=== PATIENT | male | born 1950 | race Caucasian/White ===

== ENCOUNTER 2021-09-14 13:52 | Outpatient (CLI) | payer MEDICARE, BC, SELFPAY ==
--- NOTE | 2021-09-14 14:00 | CRLHL7_ITS ---
For Patients: As a result of the Cures Act, medical imaging exams and procedure reports are released immediately into your electronic medical record. You may view this report before your referring provider. If you have questions, please contact your health care provider. INDICATION: Bilateral leg swelling. COMPARISON: None FINDINGS: Ultrasound of the venous drainage of both lower extremities shows no evidence of deep venous thrombosis. There is normal antegrade flow from the posterior tibial and popliteal veins superiorly through the common femoral vein in both legs. There is normal augmentation and compressibility of these veins. Mild edema pattern bilaterally IMPRESSION: No evidence of deep venous thrombosis on ultrasound examination of both lower extremities. Dictated by Leland Pozo MD @ 09/14/2021 2:58:50 PM (Electronically Signed)
== END 2021-09-14 13:53 | disposition home or self-care (01) ==
LOC: US 13:54
PROVIDERS: Visit Provider Internal Medicine Hematology & Oncology
DX: M79.89 Other specified soft tissue disorders (principal)
CPT/HCPCS: 93970

== ENCOUNTER 2021-09-18 11:58 | Outpatient (CLI) | payer MEDICARE, BC, SELFPAY ==
[2021-09-18 12:34] LABS: Creatinine* 0.6 mg/dL (0.5-1.5); Estimated Glomerular Filt Rate 103 ml/min
--- NOTE | 2021-09-18 13:00 | CRLHL7_ITS ---
For Patients: As a result of the Century Cures Act, medical imaging exams and procedure reports are released immediately into your electronic medical record. You may view this report before your referring provider. If you have questions, please contact your health care provider. Indication: primary malignant neoplasm of pancreas, abnormal LFTs Technique: Postcontrast CT abdomen and pelvis. 98 cc Isovue 370 intravenous contrast. Please note that all CT scans at this facility use dose modulation, iterative reconstruction, and/or weight-based dosing when appropriate to reduce radiation dose to as low as reasonably achievable. Comparison: CT 08/17/2021 Findings: Small bilateral effusions, left greater than right. Atelectasis in the left lung base. Severe fatty infiltration of the liver. Postoperative changes of Whipple procedure. Pneumobilia. Pancreatic stent. The stent traverses pancreatic distal body and tail extending into the bowel spleen normal in size. Adrenal glands normal. Normal kidneys. Intra-abdominal ascites. No abscess. No bowel obstruction or free air. Sigmoid diverticulosis. No diverticulitis. Incomplete distension of the hepatic flexure. Appendix appears normal. Intrapelvic ascites also noted. Degenerative disc disease and facet degeneration lower lumbar spine. Diffuse anasarca. Right hip replacement hardware. Degenerative joint disease left hip. Impression: Postoperative changes of Whipple procedure. Stable position of the pancreatic duct stent. Increased intra-abdominal and intrapelvic ascites compared to the prior examination. Severe hepatic steatosis without intrahepatic mass. Similar appearance of the hepatic flexure compared to the prior study. Left pleural effusion has also increased. Development of small right pleural effusion. Please note that all CT scans at this facility use dose modulation, iterative reconstruction, and/or weight-based dosing when appropriate to reduce radiation dose to as low as reasonably achievable. Dictated by Bud Pham MD @ 09/18/2021 1:44:53 PM (Electronically Signed)
== END 2021-09-18 11:59 | disposition home or self-care (01) ==
LOC: CT 11:59
PROVIDERS: Visit Provider Internal Medicine Hematology & Oncology
DX: C25.0 Malignant neoplasm of head of pancreas (principal); K76.0 Fatty (change of) liver, not elsewhere classified; J90 Pleural effusion, not elsewhere classified
CPT/HCPCS: 36415; 74177; 82565; Q9967

== ENCOUNTER 2021-09-24 11:49 | Outpatient (CLI) | payer MEDICARE, BC, SELFPAY ==
[2021-09-24 12:23] VITALS: BP 115/73; PULSE 107; RESP 18; O2SAT 97
[2021-09-24 13:13] VITALS: BP 110/86; PULSE 92; RESP 18; O2SAT 100
[2021-09-24 13:29] VITALS: BP 108/70; PULSE 91; RESP 18; O2SAT 100
[2021-09-24 13:41] VITALS: BP 122/66; PULSE 90; RESP 16; O2SAT 100
--- NOTE | 2021-09-24 13:53 | PM.GSPRC ---
Operative Note Date of procedure: 09/24/21 Type of Procedure: 1. Paracentesis with ultrasound guidance. Procedure Description: After an informed consent was obtained, patient?s abdomen in the right mid abdomen was prepped and draped in the usual sterile fashion. An ultrasound was brought onto the field and a fluid pocket was identified that was away from intraabdominal organs, specifically small bowel. 1% Lidocaine was used to anesthetize the skin, soft tissues and peritoneum over the proposed needle insertion site. This was done under US guidance. A skin incision was made with a scalpel just large enough to fit the needle. The needle with the angiocatheter was advanced into the abdomen under US guidance. Once in the abdomen, the needle was withdrawn and the catheter was left in place. The catheter was then connected to the drainage tubing. A total of 3030 mL of clear yellow fluid was drained and 180 mL were sent to pathology for evaluation and cytology. The fluid sub draining because the catheter was up against the small intestine. Despite repositioning the catheter, I was not able to obtain a more fluid. The patient did have some fluid still left in the abdomen. The catheter was then removed and the skin opening was closed with Exofin. Patient tolerated procedure well and there were no immediate complications. Anesthesia: local Surgeon: Keke Hyatt MD Estimated blood loss (mL): 0 Condition: stable Disposition: other (Discharged home.)
[2021-09-24 14:48] LABS: Lactate Dehydrogenase* 552 U/L (313-618)
[2021-09-24 14:49] LABS: Total Protein* 5.3 g/dL (6.0-8.3)
[2021-09-24 14:59] LABS: BF Clarity* Clear; BF Color Xanthochromic; BF Total Volume* 150; LDH Body Fluid* 157 U/L
[2021-09-24 15:00] LABS: Albumin Body Fluid* < 1.0 gm/dL; Amylase Body Fluid* < 30 U/L; Body Fluid Total Protein* < 2.0 gm/dL
[2021-09-24 15:15] LABS: Glucose Body Fluid* 92 mg/dL
[2021-09-24 15:55] LABS: RBC, Body Fluid* 0.001 10^6/uL
[2021-09-24 15:56] LABS: Mononuclear WBC Body Fluid* 71 %; Polynuclear WBC Body Fluid* 29 %; WBC, Body Fluid* 0.119 10^3/uL
== END 2021-09-24 14:14 | disposition home or self-care (01) ==
LOC: US 11:51 → OP CLINIC 11:53
PROVIDERS: Surgery; PCP Family Medicine; Visit Provider Surgery
DX: C25.0 Malignant neoplasm of head of pancreas (principal)
CPT/HCPCS: 36415; 49083; 76942; 82042; 82150; 82945; 83615; 84155; 84157; 87070; 87205; 88112; 88305; 88341; 88342; 89051; P9047

== ENCOUNTER 2022-04-13 14:20 | Outpatient (CLI) | payer MEDICARE, BC, SELFPAY ==
[2022-04-13 14:45] LABS: Basophils Absolute Auto 0.02 K/uL (0.00-0.30); Basophils Percent Auto 0.2 % (0.0-3.0); Eosinophils Absolute Auto 0.07 K/uL (0.00-0.50); Eosinophils Percent Auto 0.9 % (0.0-7.0); Hematocrit 34.2 % (37.0-53.0); Hemoglobin* 11.7 gm/dL (13.5-17.5); Immature Granulocytes Abs Auto 0.05 K/uL (0.00-0.30); Immature Granulocytes Pct Auto 0.6 %; Lymphocytes Percent Auto 13.9 % (20-44); Mean Corpuscular HGB Conc 34 gm/dL (32-36); Mean Corpuscular Hemoglobin 36 pg (26-34); Mean Corpuscular Volume 104 fL (80-100); Monocytes Percent Auto 9.3 % (0.0-11.0); Neutrophils Percent Auto 75.1 % (42.0-72.0); Platelet Count* 155 K/uL (140-440); Red Blood Count 3.28 m/uL (4.30-5.90); White Blood Count* 8.05 K/uL (4.50-11.00)
[2022-04-13 14:47] LABS: Slide Review Reflex No
[2022-04-13 15:07] LABS: Albumin* 3.4 g/dL (3.3-5.0); Chloride* 103 mmol/L (96-114)
[2022-04-13 15:08] LABS: Potassium* 3.5 mmol/L (3.6-5.1); Sodium* 135 mmol/L (135-149)
[2022-04-13 15:10] LABS: Alkaline Phosphatase* 539 U/L (40-150); Aspartate Amino Transferase* 175 U/L (12-35); Bilirubin Total* 7.3 mg/dL (0.1-1.5); Blood Urea Nitrogen* 16 mg/dL (7-30); Carbon Dioxide* 26 mmol/L (20-32); Creatinine* 0.8 mg/dL (0.5-1.5); Estimated Glomerular Filt Rate 94 ml/min; Total Protein* 7.4 g/dL (6.0-8.3)
[2022-04-13 15:11] LABS: Alanine Aminotransferase* 124 U/L (4-50); Calcium* 8.7 mg/dL (8.4-10.6); Glucose* 137 mg/dL (60-115)
[2022-04-15 19:51] LABS: Cancer Antigen-GI (CA 19-9) 581 U/mL (<=35)
== END 2022-04-13 14:21 | disposition home or self-care (01) ==
PROVIDERS: PCP Family Medicine; Visit Provider Internal Medicine Hematology & Oncology
DX: C25.0 Malignant neoplasm of head of pancreas (principal)
CPT/HCPCS: 36415; 80053; 85025; 86301

== ENCOUNTER 2022-04-15 10:36 | Emergency (ER) | payer MEDICARE, BC, SELFPAY ==
[2022-04-15] VITALS (25 sets, daily range): BP systolic 78–118; BP diastolic 48–70; PULSE 53–62; RESP 16; TEMP 36.1; O2SAT 88–100; BMI 25.4
--- NOTE | 2022-04-15 11:34 | CRLHL7_ITS ---
For Patients: As a result of the Century Cures Act, medical imaging exams and procedure reports are released immediately into your electronic medical record. You may view this report before your referring provider. If you have questions, please contact your health care provider. INDICATION: Jaundice, history of pancreatic cancer. TECHNIQUE: CT of the abdomen and pelvis with 90 cc Isovue 370 IV contrast. Coronal and sagittal reconstructions. COMPARISON: CT of the abdomen and pelvis 09/18/2021. FINDINGS: Diffuse hepatic steatosis. New 1.1 cm low-attenuation lesion in the lateral segment of the left hepatic lobe (series 2, image 33). The spleen and adrenal glands are negative. Portal veins are patent. Postoperative changes of Whipple procedure and cholecystectomy. Pancreatic duct stent in stable position. No dilation of the pancreatic duct. No obvious recurrent mass. Increased mild intra and extrahepatic bile duct dilation of uncertain etiology. Minimal pneumobilia. Symmetric enhancement of the kidneys. No hydronephrosis or ureteral dilation. No obstructing urinary calculi identified, however the distal ureters are obscured by streak artifact in the pelvis. The visualized bladder demonstrates mild wall thickening. Prostate gland does not appear significantly enlarged. No small bowel dilation. Resolution of previously seen colonic inflammation. Colonic diverticulosis without evidence of diverticulitis. Redundant sigmoid colon. New circumferential wall rectal thickening with presacral fat stranding suggesting proctitis. Negative appendix. Diffuse mesenteric edema throughout abdomen and pelvis. Resolution of previously seen ascites. No pneumatosis or free air. There are multiple mildly enlarged central mesenteric lymph nodes which have increased in size. For example, a lymph node to the right of midline measures 1.1 cm in short axis today compared to 0.7 cm previously (series 2, image 58). No retroperitoneal lymphadenopathy. Aortoiliac vascular calcifications. Retroaortic left renal vein. Degenerative changes of the spine. Left convex lumbar curve. Right total hip arthroplasty. Mild body wall edema. Resolution of previously seen pleural effusions. 3 mm noncalcified pulmonary nodule along the left major fissure (series 3, image 10). 2 mm noncalcified pulmonary nodule in the lateral left lower lobe (image 11). These were not included in the field of view on prior exam. Recommend attention on follow-up. Coronary artery calcifications. Bilateral gynecomastia. IMPRESSION: 1. Postoperative changes of Whipple procedure with pancreatic duct stent in stable position. No obvious recurrent mass. 2. Diffuse hepatic steatosis. New small indeterminate lesion in the left hepatic lobe. This could be further evaluated with nonemergent contrast enhanced MRI. 3. Increased mild intra and extrahepatic bile duct dilation of uncertain etiology. 4. Increased size of multiple mildly enlarged central mesenteric lymph nodes which are indeterminate. 5. New rectal wall thickening with presacral fat stranding suggesting proctitis. 6. Diffuse mesenteric edema and mild body wall edema. Please note that all CT scans at this facility use dose modulation, iterative reconstruction, and/or weight-based dosing when appropriate to reduce radiation dose to as low as reasonably achievable. Dictated by Adilia Sims MD @ 04/15/2022 3:31:13 PM (Electronically Signed)
--- NOTE | 2022-04-15 11:37 | ED.GENADULT ---
HPI - General Adult General Chief complaint: Unspecified Complaint, Adult Stated complaint: high billiruban and jaundice Time Seen by Provider: 04/15/22 11:11 History of Present Illness HPI narrative: This 72-year-old male has a history of pancreatic cancer that was diagnosed 14 months ago. He had a Whipple procedure and had his gallbladder removed. He has been doing well and had 2 scans with no findings of cancer. Lab results yesterday showed elevated bilirubin. He states that he has dark colored urine and does show some sign of jaundice. He does not have any pain or nausea or vomiting. He states that he is exercising and feels well. He is seeing an oncologist and GI specialist. He comes in for a CT scan and further evaluation of these findings. Related Data Allergies Allergy/AdvReac Type Severity Reaction Status Date / Time No Known Drug Allergies Allergy Verified 04/15/22 12:05 Review of Systems Status of ROS: Reports: 10 or more systems reviewed and unremarkable except as noted in History and below Narrative: Constitutional: No fevers, no weight gain or loss. Eyes: No discharge. No vision changes. HENT: No congestion, no sore throat, no ear pain. Cardiovascular: No chest pain, no palpitations. Respiratory: No shortness of breath, no wheezes, no cough. Gastrointestinal: No abdominal pain, no vomiting, no diarrhea. Genitourinary: No dysuria, no hematuria. Musculoskeletal: Normal range of motion. Skin: No rashes, no pruritis. Jaundice. Neurological: No dizziness, weakness, sensory change, speech change. Endo/Heme/Allergies: No bruising or bleeding. No polydipsia. Pysch: no suicidality, no anxiety, no insomnia. All other systems reviewed and are negative. PFSH PFSH Social History Smoking Status: Former smoker Do you use any of these nicotine containing products: None Second hand tobacco smoke exposure: No How often do you have a drink containing alcohol: never How often do you have six or more drinks on one occasion: Never AUDIT-C Alcohol total score: 0 Non-prescribed substance use: denies use service: No Exam Narrative: Exam Narrative: Constitutional: Well-developed, well-nourished, no acute distress. HEENT: Normocephalic, atraumatic. Neck: Normal range of motion. Nontender. Supple. Heart: Regular. No murmurs. Normal rate. Intact distal pulses. Lungs: Clear to auscultation. No chest discomfort. No wheezes, rhonchi, or rales. Abdomen: Normal bowel sounds. Nontender. No rebound tenderness. Genitalia: Deferred. Back: No midline tenderness. Normal range of motion. Extremities: Normal range of motion. No injury. Skin: Intact. No rash. Warm. No erythema or pallor. Neurologic: No altered sensation. No weakness. Alert and oriented. Psychiatric: No suicidality. No anxiety or depression. No insomnia. Nursing notes and vitals signs are reviewed. Const: Vital Signs, click to edit/add: Vital Signs - 24 hr 04/15/22 10:59 04/15/22 11:18 04/15/22 11:30 Temperature 96.9 F L Pulse Rate 58 L 58 L Respiratory Rate 16 Blood Pressure Blood Pressure [Ri ght Upper Arm] 78/48 L Pulse Oximetry 96 99 99 Oxygen Delivery Me thod Room Air 04/15/22 11:32 04/15/22 11:45 04/15/22 12:00 Temperature Pulse Rate 62 61 59 L Respiratory Rate Blood Pressure 107/70 Blood Pressure [Ri ght Upper Arm] Pulse Oximetry 99 98 99 Oxygen Delivery Me thod 04/15/22 12:02 04/15/22 12:15 04/15/22 12:30 Temperature Pulse Rate 58 L 56 L 62 Respiratory Rate Blood Pressure 106/63 Blood Pressure [Ri ght Upper Arm] Pulse Oximetry 98 97 100 Oxygen Delivery Me thod 04/15/22 12:32 04/15/22 12:54 04/15/22 13:00 Temperature Pulse Rate 60 54 L 55 L Respiratory Rate Blood Pressure 94/67 Blood Pressure [Ri ght Upper Arm] Pulse Oximetry 99 98 99 Oxygen Delivery Me thod 04/15/22 13:02 04/15/22 13:15 04/15/22 13:30 Temperature Pulse Rate 57 L 56 L 59 L Respiratory Rate Blood Pressure 116/66 Blood Pressure [Ri ght Upper Arm] Pulse Oximetry 99 100 100 Oxygen Delivery Me thod 04/15/22 13:32 04/15/22 13:45 04/15/22 14:07 Temperature Pulse Rate 56 L 56 L 57 L Respiratory Rate Blood Pressure 118/69 Blood Pressure [Ri ght Upper Arm] Pulse Oximetry 100 88 [facility] 04/[facility]22 14:15 04/15/22 14:30 04/15/22 14:32 Temperature Pulse Rate 54 L 53 L 60 Respiratory Rate Blood Pressure 101/62 Blood Pressure [Ri ght Upper Arm] Pulse Oximetry 98 98 97 Oxygen Delivery Me thod 04/15/22 14:45 04/15/22 15:00 04/15/22 15:02 Temperature Pulse Rate 54 L 55 L 56 L Respiratory Rate Blood Pressure 105/62 Blood Pressure [Ri ght Upper Arm] Pulse Oximetry 99 99 99 Oxygen Delivery Me thod 04/15/22 15:15 Temperature Pulse Rate 56 L Respiratory Rate Blood Pressure Blood Pressure [Ri ght Upper Arm] Pulse Oximetry 99 Oxygen Delivery Me thod Course Vital Signs Vital signs: Initial Vital Signs Temperature 96.9 F L 04/15/22 10:59 Temperature Source Temporal Artery Scan 04/15/22 10:59 Respiratory Rate 16 04/15/22 10:59 Blood Pressure 78/48 L 04/15/22 10:59 Blood Pressure Mean 58 04/15/22 10:59 Blood Pressure Position Sitting 04/15/22 10:59 Pulse Oximetry 96 04/15/22 10:59 Oxygen Delivery Method 04/15/22 10:59 Vital Signs Temperature 96.9 F L 04/15/22 10:59 Respiratory Rate 16 04/15/22 10:59 Blood Pressure 78/48 L 04/15/22 10:59 Pulse Oximetry 96 04/15/22 10:59 Oxygen Delivery Method 04/15/22 10:59 Temperature 96.9 F L 04/15/22 10:59 Pulse Rate 56 L 04/15/22 15:15 Respiratory Rate 16 04/15/22 10:59 Blood Pressure 105/62 04/15/22 15:02 Pulse Oximetry 99 04/15/22 15:15 Oxygen Delivery Method 04/15/22 10:59 Medical Decision Making MDM Narrative Medical decision making narrative: Initial blood pressure for this patient showed 78/48. At the time of my visit his blood pressure was 120/80. He states that his blood pressure runs low at times and denies having any symptoms of lightheadedness. He is not tripping sirs criteria for workup for sepsis. The patient did receive 500 mL of normal saline intravenously. Lab results returned with some elevated bilirubin but it is distinctly improved when compared to the results from 2 days ago. Similarly his liver enzymes have improved. It is notable however that his hemoglobin went from 11.72 days ago to 9.9 today. He does not report any blood loss. The patient states that he feels rather normal and reports that he has been exercising to rebuild strength after and 80 lb weight loss because of the Whipple procedure and prolonged hospitalization that occurred about a year ago. He is in contact with his oncologist and results will be forwarded from today's visit. At the time of discharge the patient appears safe for outpatient management. The treatment plan is reviewed along with written and verbal return precautions. Reasons to return and the importance of close followup were also reviewed. He will connect with his oncologist for further plans. Lab Data Labs: Lab Results 04/15/22 04/15/22 04/15/22 Range/Units 11:58 11:58 11:58 WBC 5.13 (4.50-11.00) K/uL RBC 2.75 L (4.30-5.90) m/uL Hgb 9.9 L (13.5-17.5) gm/dL Hct 28.4 L (37.0-53.0) % MCV 103 H (80-100) fL MCH 36 H (26-34) pg MCHC 35 (32-36) gm/dL RDW Coeff of Fidelina 15.5 (11.5-15.5) % Plt Count 142 (140-440) K/uL Neut % (Auto) 67.4 (42.0-72.0) % Lymph % (Auto) 20.7 (20-44) % Ward % (Auto) 9.9 (0.0-11.0) % Eos % (Auto) 1.6 (0.0-7.0) % Baso % (Auto) 0.2 (0.0-3.0) % Neut # (Auto) 3.46 (1.7-7.0) K/uL Lymph # (Auto) 1.06 (0.90-2.90) K/uL Ward # (Auto) 0.50 (0.00-0.90) K/UL Eos # (Auto) 0.08 (0.00-0.50) K/uL Baso # (Auto) 0.01 (0.00-0.30) K/uL INR 1.15 H (0.91-1.10) Sodium 132 L (135-149) mmol/L Potassium 3.2 L (3.6-5.1) mmol/L Chloride 105 (96-114) mmol/L Carbon Dioxide 23 (20-32) mmol/L BUN 15 (7-30) mg/dL Creatinine 0.7 (0.5-1.5) mg/dL Estimated Creat Clear 71.12 Estimated GFR 98 ml/min Glucose 170 H (60-115) mg/dL Calcium 7.8 L (8.4-10.6) mg/dL Total Bilirubin 3.9 H (0.1-1.5) mg/dL Direct Bilirubin 2.3 H (0.0-0.5) mg/dL AST 102 H (12-35) U/L ALT 81 H (4-50) U/L Alkaline Phosphatase 396 H (40-150) U/L Total Protein 6.4 (6.0-8.3) g/dL Albumin 2.8 L (3.3-5.0) g/dL Lipase 23 (23-300) U/L Urine Color (Yellow) Urine Appearance (Clear) Urine pH (5.0-8.5) Ur Specific [place] (1.000-1.030) Urine Protein (Negative) Urine Glucose (UA) (Negative) Urine Ketones (Negative) Urine Blood (Negative) Urine Nitrite (Negative) Urine Bilirubin (Negative) Urine Urobilinogen (0.2-1.0) Ur Leukocyte Esterase (Negative) Urine RBC (0-2) Urine WBC (0-5) Ur Squamous Epith Cells (None-Few) Urine Bacteria (None) 04/15/22 Range/Units 13:02 WBC (4.50-11.00) K/uL RBC (4.30-5.90) m/uL Hgb (13.5-17.5) gm/dL Hct (37.0-53.0) % MCV (80-100) fL MCH (26-34) pg MCHC (32-36) gm/dL RDW Coeff of Fidelina (11.5-15.5) % Plt Count (140-440) K/uL Neut % (Auto) (42.0-72.0) % Lymph % (Auto) (20-44) % Ward % (Auto) (0.0-11.0) % Eos % (Auto) (0.0-7.0) % Baso % (Auto) (0.0-3.0) % Neut # (Auto) (1.7-7.0) K/uL Lymph # (Auto) (0.90-2.90) K/uL Ward # (Auto) (0.00-0.90) K/UL Eos # (Auto) (0.00-0.50) K/uL Baso # (Auto) (0.00-0.30) K/uL INR (0.91-1.10) Sodium (135-149) mmol/L Potassium (3.6-5.1) mmol/L Chloride (96-114) mmol/L Carbon Dioxide (20-32) mmol/L BUN (7-30) mg/dL Creatinine (0.5-1.5) mg/dL Estimated Creat Clear Estimated GFR ml/min Glucose (60-115) mg/dL Calcium (8.4-10.6) mg/dL Total Bilirubin (0.1-1.5) mg/dL Direct Bilirubin (0.0-0.5) mg/dL AST (12-35) U/L ALT (4-50) U/L Alkaline Phosphatase (40-150) U/L Total Protein (6.0-8.3) g/dL Albumin (3.3-5.0) g/dL Lipase (23-300) U/L Urine Color [place] A (Yellow) Urine Appearance Clear (Clear) Urine pH 6.0 (5.0-8.5) Ur Specific [place] 1.020 (1.000-1.030) Urine Protein Negative (Negative) Urine Glucose (UA) Negative (Negative) Urine Ketones Negative (Negative) Urine Blood Negative (Negative) Urine Nitrite Negative (Negative) Urine Bilirubin 2+ A (Negative) Urine Urobilinogen 1.0 (0.2-1.0) Ur Leukocyte Esterase Negative (Negative) Urine RBC 0-2 (0-2) Urine WBC 0-2 (0-5) Ur Squamous Epith Cells None (None-Few) Urine Bacteria None (None) Imaging Data CT scan - abdomen: Radiologist's impression: 1. Postoperative changes of Whipple procedure with pancreatic duct stent in stable position. No obvious recurrent mass. 2. Diffuse hepatic steatosis. New small indeterminate lesion in the left hepatic lobe. This could be further evaluated with nonemergent contrast enhanced MRI. 3. Increased mild intra and extrahepatic bile duct dilation of uncertain etiology. 4. Increased size of multiple mildly enlarged central mesenteric lymph nodes which are indeterminate. 5. New rectal wall thickening with presacral fat stranding suggesting proctitis. 6. Diffuse mesenteric edema and mild body wall edema. Discharge Plan Discharge Clinical Impression: Hyperbilirubinemia, History of pancreatic cancer Patient Disposition: Home, Self-Care Condition: Stable Additional Instructions: Follow-up with oncology and GI Clinic. Return if worsening symptoms happen. Follow Up/Referrals: Chinedu Hudson MD [Primary Care Provider] - Stand Alone Forms: [employer] Info Instructions
[2022-04-15] MEDS: 0.9 % SODIUM CHLORIDE 500 ML 500 ML IV (11:59)
[2022-04-15 12:08] LABS: Basophils Absolute Auto 0.01 K/uL (0.00-0.30); Basophils Percent Auto 0.2 % (0.0-3.0); Eosinophils Absolute Auto 0.08 K/uL (0.00-0.50); Eosinophils Percent Auto 1.6 % (0.0-7.0); Hematocrit 28.4 % (37.0-53.0); Hemoglobin* 9.9 gm/dL (13.5-17.5); Immature Granulocytes Abs Auto 0.01 K/uL (0.00-0.30); Immature Granulocytes Pct Auto 0.2 %; Lymphocytes Absolute Auto 1.06 K/uL (0.90-2.90); Lymphocytes Percent Auto 20.7 % (20-44); Mean Corpuscular HGB Conc 35 gm/dL (32-36); Mean Corpuscular Hemoglobin 36 pg (26-34); Mean Corpuscular Volume 103 fL (80-100); Monocytes Percent Auto 9.9 % (0.0-11.0); Neutrophils Absolute Auto 3.46 K/uL (1.7-7.0); Neutrophils Percent Auto 67.4 % (42.0-72.0); Platelet Count* 142 K/uL (140-440); RDW Coefficient of Variation % 15.5 % (11.5-15.5); Red Blood Count 2.75 m/uL (4.30-5.90); White Blood Count* 5.13 K/uL (4.50-11.00)
[2022-04-15 12:19] LABS: Slide Review Reflex No
[2022-04-15 12:28] LABS: Albumin* 2.8 g/dL (3.3-5.0)
[2022-04-15 12:29] LABS: Chloride* 105 mmol/L (96-114); Potassium* 3.2 mmol/L (3.6-5.1); Sodium* 132 mmol/L (135-149)
[2022-04-15 12:30] LABS: INR 1.15 (0.91-1.10); Prothrombin Time 15.4 Seconds
[2022-04-15 12:31] LABS: Alkaline Phosphatase* 396 U/L (40-150); Aspartate Amino Transferase* 102 U/L (12-35); Bilirubin Direct* 2.3 mg/dL (0.0-0.5); Bilirubin Total* 3.9 mg/dL (0.1-1.5); Carbon Dioxide* 23 mmol/L (20-32); Creatinine* 0.7 mg/dL (0.5-1.5); Est. Creatinine Clearance* 71.12; Estimated Glomerular Filt Rate 98 ml/min; Total Protein* 6.4 g/dL (6.0-8.3)
[2022-04-15 12:32] LABS: Alanine Aminotransferase* 81 U/L (4-50); Blood Urea Nitrogen* 15 mg/dL (7-30); Calcium* 7.8 mg/dL (8.4-10.6); Glucose* 170 mg/dL (60-115); Lipase* 23 U/L (23-300)
[2022-04-15 14:30] LABS: Appearance Urine Clear (Clear); Bilirubin Urine 2+ (Negative); Blood Urine Negative (Negative); Color Urine Orange (Yellow); Glucose Urine Negative (Negative); Ketones Urine Negative (Negative); Leukocyte Esterase Urine Negative (Negative); Nitrite Urine Negative (Negative); Protein Urine Negative (Negative)
[2022-04-15 14:40] LABS: RBC Urine 0-2 (0-2); WBC Urine 0-2 (0-5)
[2022-04-15] MEDS: HEPARIN 500 UNIT/5 ML SYRINGE IVF (15:55)
== END 2022-04-15 16:00 | disposition home or self-care (01) ==
PROVIDERS: Emergency Provider Emergency Medicine Emergency Medical Services; PCP Family Medicine
DX: E80.6 Other disorders of bilirubin metabolism (principal); C25.9 Malignant neoplasm of pancreas, unspecified
CPT/HCPCS: 36415; 74177; 80048; 80076; 81001; 83690; 85025; 85610; 96360; 99284; J1642; J7120; Q9967

== ENCOUNTER 2022-05-27 11:00 | Outpatient (RCR) | payer MEDICARE, BC, SELFPAY ==
--- NOTE | 2021-12-11 16:16 | OT.OPOE ---
OT Outpatient Ortho Eval OT Outpatient Ortho Eval Start: 12/10/21 18:41 Freq: Status: Active Protocol: Document 12/11/21 15:09 AMB (Rec: 12/11/21 16:10 AMB [id number]) E-signed By Tena Butt, OTR/L, CLT, JAVA FLEX DEVELOPER OT OP Ortho Eval Details Type Type Eval Complexity Medium Insurance Information Insurance Information Medicaid Outpatient History/Precautions Current Condition/Medical Diagnosis Referring Provider Dr Pennington Treatment Diagnosis CTS BUE Date of Onset 11/20/21 Medical Conditions CA,Metal Implants,Arthritis Other Conditions Hypothyroidism, Pancreatic Cancer with recent chemo treatments. Pt was diagnosed with pancreatic surgery in March and has undergone the whipple procedure as well as 9 of 12 chemo treatments which was prematurely stopped due to severe reactions and intollerance. 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 Currently pt is not able to walk long distances secondary to severe debilitation related to cancer surgery / treatment. Pt attends OT via w/c, states he can walk in his home using a walker but not out in public. Discussed PT for improving mobility and general strength, pt states he did have [facility] PT which was helpful but states they took him as far as they could, would consider OP PT but feels he has a lot on his plate right now. Medical/Functional History Medical History Reviewed Yes Social History Employment Status Retired Oriented Mental Status No Concerns Ortho Subjective Subjective Subjective Pt states he has been having constant numbness in both of his hands, all fingers and thumb for approximately a month. Pt states he just woke up one day and both of his hands were numb and painful, nothing seems to change his sxs. Pt states his hands are often cold as well. Pt describes his pain as very annoying, they are just numb, hard to tell if I am holding something and how hard I am holding on to it. Pt rates his discomfort as a 3/10. Pt states they saw the professor of english yesterday and he did not feel pt has CTS, due to the fact that whole hand is numb including 5th digit. Pt has not tried splints or compression, warm feels good but doesn't really change sxs. Pt has to wear compression stockings and cannot put them on secondary to hand weakness and impaired sensation. Pain Assessment Pain Present Pain Present Pain Reported Location Right Hand Description Burning Intensity Numb Left Hand Description Burning,Other Intensity Numb Goniometric Comments Goniometric Comments Goniometric Comments Pt demonstrates AROM WFL throughout BUE. Generalized weakness throughout shoulders, elbows, forearms, wrists, and hands - 4-/5. Hand Pinch/Asbestos Textile Supervisor Strength Hand Right Asbestos Textile Supervisor Strength Position 1 (lbs) 40 Lateral Pinch Strength (lbs) 10 Three Point Pinch (lbs) 10 Left Asbestos Textile Supervisor Strength Position 1 (lbs) 35 Lateral Pinch Strength (lbs) 10 Three Point Pinch (lbs) 10 OT Objective Data Hand Hand Dominance Right Hand Function Full AROM but generalized weakness and impaired sensation. Sensation Sensation Assessment Summary Comments Will complete sensory testing at next visit. Upper Extremity Special Tests Wrist Durkan's Test Negative Left,Negative Right Median Nerve-Carpal Tunnel Wrist Phalen Test Negative Left,Negative Right OT Problems Problems Problems Decreased Strength Problems Comments Impaired sensation throughout hand Other Problems Writing,Opening Containers, Dressing Patient Potential Fair Assessment Assessment Assessment Pt presents to OT with complaints of numbness throughout BUE hands, all digits. Pt does not have classic s/s of CTS as he is experience paresthesia throughout BUE hands, all digits. Phalen's, Durkan's and Tinnel's are all (-). Question if pt is experiencing chemo related neuropathy? Pt is willing to try a few sessions of conservative treatment but is considering contacting MD to see if he can have an EMG to find out for sure what is going on in his hands. Pt has has significant weakness / debility in general (full body) due to cancer related treatment and surgery. Pt will benefit from continued OT services to address BUE paresthesia due to CTS or neuropathy. Treatment may be more limited if neuropathy is determined to be the cause. OT Outpatient Treatment Plan Ortho Barriers Barriers to Goal Attainment Multiple comorbidities and significant global debilitation. Occupational Therapy Treatment Plan - OP Potential Rehabilitation Potential Fair Goals Goals 1. Pt will be independent and compliant with HEP and recommendations for CTS in order to maximize postive outcomes. 3 weeks 2. Pt will verbalize the ability to sleep without waking secondary to nerve discomfort in his hands for at least 5 consecutive days indicating nerve healing. 4 weeks. 3. Pt will verbalize decreased paresthesia during the day in order to improve proprioception and ability to grasp and hold utensils, food, etc. 6 weeks 4. Pt will demonstrate improved BUE digital project coordinator strength by at least 5# ea to improve ability to lift and carry items as well as to open containers and jaelyn his compression stockings. 8 weeks . Progress set Treatment Plan Treatment Plan Evaluation,Manual Therapy, Splinting,Ultrasound, Therapeutic Exercise, Therapeutic Activities,Self- Care/Home Management,Caregiver Training,Education Expected Frequency 1-2x Week Expected Frequency Comments Visits may be limited due to multiple other medical conditions / appointments Expected Duration 8-10 Weeks Certification Certification I Certify That: Therapy Services Provided, Therapy Plan Established, Therapy Plan Reviewed Recertification Information Recertification Information Initial Certification Date 12/11/21 Recertification Due Date 03/13/22 Reasons to Continue Skilled Therapy Pt initiating therapy today to address BUE paresthesia. Rehabilitation Potential Fair Continued Plan of Care and Interventions See above Provider Signature Shows Agreement With POC & Medical Necessity Physician Comment/Change Comment or Changes Physician NPI Number #
== END 2022-08-20 15:20 | disposition home or self-care (01) ==
PROVIDERS: PCP Family Medicine; Visit Provider Family Medicine
DX: G56.00 Carpal tunnel syndrome, unspecified upper limb (principal); Z51.89 Encounter for other specified aftercare
CPT/HCPCS: 80053; 85025; 97035; 97110; 97116; 97140; 97162; 97166; 97530; 97535; X5282

== ENCOUNTER 2023-05-02 15:39 | Inpatient (IN) | payer MEDICARE, BC, SELFPAY ==
[2023-05-02] VITALS (35 sets, daily range): BP systolic 69–121; BP diastolic 39–78; PULSE 63–109; RESP 16–18; TEMP 36.6–37.8; O2SAT 92–99; BMI 26.8; BMI 27.5
--- NOTE | 2023-05-02 15:58 | ED_ITS ---
HPI - General Adult General Time Seen by Provider: 15:58 Date Seen: 05/02/23 Chief complaint: Dizziness/Vertigo Stated complaint: Pancreatic cancer-dizzy Time Seen by Provider: 05/02/23 15:57 Source: patient and RN notes reviewed Mode of arrival: wheelchair Limitations: no limitations History of Present Illness HPI narrative: This 73-year-old male is coming in accompanied by his for evaluation of fever. He has underlying recurrent pancreatic cancer that was just diagnosed recently. He had pancreatic cancer initial diagnosis about 2 years ago and had a Whipple, had a cholecystectomy at the time. He had painless jaundice recently, was found to have recurrent pancreatic cancer. He has started Abraxane and gemcitabine, started last week, is due to have next dose tomorrow. He woke up from his nap today with a temperature 102.8? F, 1 hour later is 101.6? F, he took no meds. He is afebrile here. He has been more tired today. Yesterday he took Tylenol because he felt achy in his back in in his legs. He has not really noting any increased cough, no increased abdominal symptoms or urinary symptoms. No sore throat. He did take MiraLax yesterday, that was the last to they had, his picked up more today but she has not given it yet today. He was complaining of being severely constipated, had very painful hard stool today and did have blood with that. The blood was in the context of a very painful constipated stool. He has not noted ongoing bleeding. He is followed by [place] [facility] in [place]. He had a drainage tube put in to ?help empty his liver?. Related Data Home Medications Medication Instructions Recorded Confirmed aspirin 81 mg capsule 81 mg PO DAILY 05/02/23 05/02/23 ciprofloxacin HCl 500 mg tablet 500 mg PO BID 05/02/23 colchicine 0.6 mg capsule 0.6 mg PO DAILY PRN 05/02/23 05/02/23 gabapentin 100 mg capsule mg PO 05/02/23 lidocaine 5 % topical patch 1 patch topical Q24H 05/02/23 05/02/23 giazrx-wmqptcco-hmthwqg 3 cap PO 05/02/23 36,000-114,000-180,000 unit capsule,delay rel (Creon) magnesium oxide 400 mg (241.3 mg 400 mg PO BID 05/02/23 05/02/23 magnesium) tablet melatonin 3 mg capsule 3 mg PO DAILY 05/02/23 05/02/23 metoclopramide HCl 10 mg tablet 10 mg PO Q6H 05/02/23 05/02/23 (Reglan) midodrine 10 mg tablet 10 mg PO 5XD 05/02/23 05/02/23 pantoprazole 40 mg tablet,delayed 40 mg PO DAILY 05/02/23 05/02/23 release polyethylene glycol 3350 17 17 g PO DAILY 05/02/23 05/02/23 gram/dose oral powder prochlorperazine maleate 10 mg 10 mg PO Q6H PRN nausea 05/02/23 05/02/23 tablet sennosides 8.6 mg tablet 8.6 mg PO DAILY 05/02/23 05/02/23 sildenafil 100 mg tablet 100 mg PO DAILY PRN intercourse 05/02/23 05/02/23 trazodone 50 mg tablet 50 mg PO DAILY 05/02/23 05/02/23 Allergies Allergy/AdvReac Type Severity Reaction Status Date / Time No Known Drug Allergies Allergy Verified 05/02/23 15:45 Review of Systems Status of ROS: Reports: 6 or more systems reviewed and unremarkable except as noted in History and below [facility] Medical History (Updated 05/02/23 @ 23:37 by Roshni Bolton MD) Gout ?M10.9 - Gout, unspecified (ICD-10) Orthostatic hypotension ?I95.1 - Orthostatic hypotension (ICD-10) Pancreatic cancer ?C25.9 - Malignant neoplasm of pancreas, unspecified (ICD-10) Surgical History (Updated 05/02/23 @ 22:27 by Roshni Bolton MD) H/O Whipple procedure ?Z90.410 - Acquired total absence of pancreas (ICD-10) ?Z90.49 - Acquired absence of other specified parts of digestive tract (ICD- 10) S/P hip replacement ?Z96.649 - Presence of unspecified artificial hip joint (ICD-10) Social History (Updated 05/02/23 @ 23:34 by Roshni Bolton MD) Narrative: Retired from [employer] in [place]. Lives with Maritza (medical decision maker if needed), 2 adult children in [place]. No current smoking, no alcohol use. Active daily. Requests full code status. What is your current living situation?: I presently have a place to live Problems where you live: no known problems Problems where you live details: NA In the past 12 months, utilities in danger of being shut off: no In past 12 months, lack of transportation kept you from medical appts, meetings, work, or getting things needed for daily living: no In the past 12 mos, have been you worried that your food would run out before you had money to buy more?: never true In the past 12 mos, the food you bought just didn't last and you didn't have money to buy more?: never true Highest level of school completed/degree received: Associate degree: academic program Smoking Status: Never smoker Do you use any of these nicotine containing products: None Second hand tobacco smoke exposure: No How often do you have a drink containing alcohol: never How often do you have six or more drinks on one occasion: Never AUDIT-C Alcohol total score: 0 Non-prescribed substance use: denies use Caffeine: Yes (Rare) How often does anyone, including family, friends and others, physically hurt you : never How often does anyone, including family, friends and others, insult or talk down to you: never How often does anyone, including family, friends and others, threaten you with harm: never How often does anyone, including family, friends and others, scream or curse at you: never service: No Exam Const: Vital Signs, click to edit/add: Vital Signs - 24 hr 05/02/23 15:41 05/02/23 16:14 05/02/23 17:21 Temperature 98.1 F Pulse Rate 83 Pulse Rate [Pulse Oximeter] 109 H Respiratory Rate 16 Blood Pressure 90/54 L Blood Pressure [Ri ght Upper Arm] 111/75 Pulse Oximetry 95 96 94 Oxygen Delivery Me thod Room Air 05/02/23 17:22 05/02/23 17:30 05/02/23 17:31 Temperature Pulse Rate 79 77 80 Pulse Rate [Pulse Oximeter] Respiratory Rate Blood Pressure 69/39 L Blood Pressure [Ri ght Upper Arm] Pulse Oximetry 95 93 95 Oxygen Delivery Me thod 05/02/23 17:45 05/02/23 17:47 05/02/23 18:00 Temperature Pulse Rate 79 81 77 Pulse Rate [Pulse Oximeter] Respiratory Rate Blood Pressure 99/59 L Blood Pressure [Ri ght Upper Arm] Pulse Oximetry 92 96 96 Oxygen Delivery Me thod 05/02/23 18:01 05/02/23 18:15 05/02/23 18:30 Temperature Pulse Rate 79 76 80 Pulse Rate [Pulse Oximeter] Respiratory Rate Blood Pressure 103/58 L Blood Pressure [Ri ght Upper Arm] Pulse Oximetry 95 96 96 Oxygen Delivery Me thod 05/02/23 18:32 05/02/23 18:45 05/02/23 19:00 Temperature Pulse Rate 76 77 75 Pulse Rate [Pulse Oximeter] Respiratory Rate Blood Pressure 96/57 L Blood Pressure [Ri ght Upper Arm] Pulse Oximetry 95 96 95 Oxygen Delivery Me thod 05/02/23 19:01 05/02/23 19:03 05/02/23 19:15 Temperature 100.1 F H Pulse Rate 78 74 Pulse Rate [Pulse Oximeter] Respiratory Rate Blood Pressure 83/53 L Blood Pressure [Ri ght Upper Arm] Pulse Oximetry 96 96 Oxygen Delivery Me thod 05/02/23 19:30 05/02/23 19:31 05/02/23 19:32 Temperature Pulse Rate 76 79 79 Pulse Rate [Pulse Oximeter] Respiratory Rate Blood Pressure 108/61 104/52 L Blood Pressure [Ri ght Upper Arm] Pulse Oximetry 96 96 94 Oxygen Delivery Me thod 05/02/23 19:45 05/02/23 20:00 05/02/23 20:02 Temperature Pulse Rate 77 76 76 Pulse Rate [Pulse Oximeter] Respiratory Rate Blood Pressure 92/54 L Blood Pressure [Ri ght Upper Arm] Pulse Oximetry 96 96 95 Oxygen Delivery Me thod 05/02/23 20:15 05/02/23 20:30 05/02/23 20:32 Temperature Pulse Rate 69 71 72 Pulse Rate [Pulse Oximeter] Respiratory Rate Blood Pressure 85/56 L Blood Pressure [Ri ght Upper Arm] Pulse Oximetry 95 96 96 Oxygen Delivery Me thod 05/02/23 20:45 05/02/23 21:00 05/02/23 21:02 Temperature Pulse Rate 65 65 63 Pulse Rate [Pulse Oximeter] Respiratory Rate Blood Pressure 101/65 Blood Pressure [Ri ght Upper Arm] Pulse Oximetry 96 96 98 Oxygen Delivery Me thod 05/02/23 21:15 05/02/23 21:30 05/02/23 21:31 Temperature Pulse Rate 69 64 64 Pulse Rate [Pulse Oximeter] Respiratory Rate Blood Pressure 98/62 Blood Pressure [Ri ght Upper Arm] Pulse Oximetry 99 95 95 Oxygen Delivery Me thod 05/02/23 21:45 Temperature Pulse Rate 67 Pulse Rate [Pulse Oximeter] Respiratory Rate Blood Pressure Blood Pressure [Ri ght Upper Arm] Pulse Oximetry 96 Oxygen Delivery Me thod Course Reevaluation(s) Time of Reevaluation #1: 17:48 Reevaluation #1: Reviewed with patient that his absolute neutrophil count is low at 800, the triple viral swab is negative. His chest x-ray shows some mild central bronchial thickening but no pneumonia. He is not coughing. He notes he had a biopsy of his spine last week sometime. He has been getting some low back pain, does radiate down his left leg this preceded the fever. The back pain is not worse. He was on Cipro after he had the stent placed for his jaundice, it is no longer on it. He has no new aches or pains, nothing really to direct me as far as fever. He notes his systolic blood pressure is usually low. He is currently running 99 systolic when I am in with him. He is almost completed 1 L of fluid, states he is feeling okay. We are paging [place] [facility] on-call. Time of Reevaluation #2: 18:32 Reevaluation #2: Nursing staff reported that patient is temperatures up to 100.1. She is collected the urinalysis, she has subsequently started his Zosyn. I will order Tylenol, be into explain to him my conversation with Oncology. I will also be ordering chest abdomen pelvis with IV contrast given his recurrent fever. Time of Reevaluation #3: 21:32 Reevaluation #3: Have updated patient that his CT is not read yet. The hospitalist has accepted him. We will work to try to get him to a floor hospital bed as soon as possible. Consultations Consultation #1: This patient is reviewed with the oncologist Halle Lane MD from [facility]. Given his age, underlying diagnosis, stent in place, neutropenia, she would favor hospitalization with broad-spectrum coverage for 48 hours while we await cultures. She would have a low threshold if he spikes another fever to do a chest abdomen pelvis CT. She does not feel it is necessary at this time, he took nothing to break his fever but if he does spike another fever, she would recommend this be done. Time: 18:12 Consultation #2: Have reviewed with our hospitalist Dr. Bolton, see will accept care, knows that his CT is unread and there is delay with radiology currently. Time: 21:14 Vital Signs Vital signs: Initial Vital Signs Temperature 98.1 F 05/02/23 15:41 Temperature Source Temporal Artery Scan 05/02/23 15:41 Pulse Rate 109 H 05/02/23 15:41 Respiratory Rate 16 05/02/23 15:41 Blood Pressure 111/75 05/02/23 15:41 Blood Pressure Mean 87 05/02/23 15:41 Blood Pressure Position Sitting 05/02/23 15:41 Pulse Oximetry 95 05/02/23 15:41 Oxygen Delivery Method Room Air 05/02/23 15:41 Vital Signs Temperature 98.1 F 05/02/23 15:41 Pulse Rate 109 H 05/02/23 15:41 Respiratory Rate 16 05/02/23 15:41 Blood Pressure 111/75 05/02/23 15:41 Pulse Oximetry 95 05/02/23 15:41 Oxygen Delivery Method Room Air 05/02/23 15:41 Temperature 98.1 F 05/03/23 03:00 Pulse Rate 63 05/03/23 03:00 Respiratory Rate 18 05/03/23 03:00 Blood Pressure 115/64 05/03/23 03:00 Pulse Oximetry 94 05/03/23 03:00 Oxygen Delivery Method Room Air 05/03/23 03:00 Medications Administered Medications: Generic Name Dose Route Start Last Admin Trade Name Freq PRN Reason Stop Dose Admin Piperacillin Sod/Tazobactam 100 mls @ 200 mls/hr 05/03/23 01:30 05/03/23 02:10 Sod 3.375 gm/ Sodium Chloride IVPB Infused Q6H MIKE Infusion Sodium Chloride 5 ml 05/02/23 23:20 05/03/23 01:24 Sodium Chloride 0.9 % (Flush) 10 Ml Syringe IVF 5 ml .FLUSH PRN Administration Discontinued Medications Generic Name Dose Route Start Last Admin Trade Name Freq PRN Reason Stop Dose Admin Acetaminophen 650 mg 05/02/23 18:36 05/02/23 19:03 Acetaminophen 325 Mg Tablet PO 05/02/23 18:37 650 mg ONCE ONE Administration Sodium Chloride 1,000 mls @ 1,000 mls/hr 05/02/23 16:15 05/02/23 18:20 0.9 % Sodium Chloride 1000 Ml IV 05/02/23 17:14 Infused .Q1H MIKE Infusion Lactated Ringer's 1,000 mls @ 1,000 mls/hr 05/02/23 18:18 05/02/23 21:15 Lactated Ringers 1000 Ml IV 05/02/23 19:17 Infused .Q1H ONE Infusion Piperacillin Sod/Tazobactam 100 mls @ 200 mls/hr 05/02/23 18:18 05/02/23 21:16 Sod 3.375 gm/ Sodium Chloride IVPB 05/02/23 18:19 Infused ONCE ONE Infusion Medical Decision Making Lab Data Lab results reviewed: Yes I reviewed the patient's lab results Labs: Lab Results 05/02/23 05/02/23 05/02/23 Range/Units 16:14 16:15 16:42 WBC 1.64 L* (4.50-11.00) K/uL RBC 3.03 L (4.30-5.90) m/uL Hgb 10.7 L (13.5-17.5) gm/dL Hct 31.0 L (37.0-53.0) % MCV 102 H (80-100) fL MCH 35 H (26-34) pg MCHC 35 (32-36) gm/dL RDW Coeff of Fidelina 12.9 (11.5-15.5) % Plt Count 144 (140-440) K/uL Neut % (Auto) 47.6 (42.0-72.0) % Lymph % (Auto) 18.3 L (20-44) % [place] % (Auto) 31.7 H (0.0-11.0) % Eos % (Auto) 0.6 (0.0-7.0) % Baso % (Auto) 1.2 (0.0-3.0) % Neut # (Auto) 0.80 L (1.7-7.0) K/uL Lymph # (Auto) 0.30 L (0.90-2.90) K/uL [place] # (Auto) 0.50 (0.00-0.90) K/UL Eos # (Auto) 0.00 (0.00-0.50) K/uL Baso # (Auto) 0.00 (0.00-0.30) K/uL Abs Immat Gran (auto) 0.00 (0.00-0.30) K/uL Imm/Tot Granulo (auto) 0.6 % Diff Slide Review Acceptable Review (Acceptable) Sodium 133 L (135-149) mmol/L Potassium 3.7 (3.6-5.1) mmol/L Chloride 102 (96-114) mmol/L Carbon Dioxide 23 (20-32) mmol/L Anion Gap 8 (7-15) mEq/L BUN 18 (7-30) mg/dL Creatinine 0.7 (0.5-1.5) mg/dL Estimated Creat Clear 70.07 Estimated GFR 97 ml/min Glucose 135 H (60-115) mg/dL Lactate 1.4 (0.5-1.9) mmol/L Calcium 8.6 (8.4-10.6) mg/dL Total Bilirubin 1.5 (0.1-1.5) mg/dL Direct Bilirubin 0.6 H (0.0-0.5) mg/dL AST 195 H (12-35) U/L ALT 171 H (4-50) U/L Alkaline Phosphatase 518 H (40-150) U/L Total Protein 6.7 (6.0-8.3) g/dL Albumin 3.1 L (3.3-5.0) g/dL Urine Color Eduarda A (Yellow) Urine Appearance Clear (Clear) Urine pH 7.0 (5.0-8.5) Ur Specific [place] 1.020 (1.000-1.030) Urine Protein Negative (Negative) Urine Glucose (UA) Negative (Negative) Urine Ketones Negative (Negative) Urine Blood Negative (Negative) Urine Nitrite Negative (Negative) Urine Bilirubin 1+ A (Negative) Urine Urobilinogen 2.0 A (0.2-1.0) Ur Leukocyte Esterase Negative (Negative) Urine RBC 0-2 (0-2) Urine WBC 0-2 (0-5) Ur Squamous Epith Cells None (None-Few) Urine Bacteria None (None) SARS-CoV-2 (PCR) Negative SARS-CoV-2 (Negative) Influenza Type A (PCR) Negative PCR FLU A (Negative) Influenza Type B (PCR) Negative PCR FLU B (Negative) RSV (PCR) Negative PCR RSV (Negative) Imaging Data Chest x-ray: Attestation: I have reviewed the pertinent imaging results. Radiologist's impression: Patient: MILAGROS RAIN Facility:?[facility] Patient ID:?[id number] Site Patient ID:?[id number] Site :?[id number] Study:?XRay Chest 1V-05/02/2023 4:30:33 PM Ordering Physician:?DR. NAVARRETE Final Report: Indication : Vertigo Comparison: None available. Technique: Single AP view chest Findings: There is right-sided Port-A-Cath. There is chronic interstitial change. There is mild central bronchial thickening. There is no dense consolidation, effusion or pneumothorax. The cardiomediastinal silhouette is within normal limits. The bony thorax is grossly intact. Impression: Mild central bronchial thickening without dense consolidation. Dictated by Mejia Braxton MD @ 05/02/2023 4:38:45 PM (Electronic Signature) CT Chest/Ab/Pelvis: Attestation: I have reviewed the pertinent imaging results. Radiologist's impression: Patient: [facility] Facility:?[facility] Patient ID:?[id number] Site Patient ID:?[id number]. Site :?[id number] Study:?CT Chest/Abd/Pelvis W/IV-05/02/2023 7:42:00 PM Ordering Physician:SOLOMON Final Report: INDICATION: Pancreatic cancer, neutropenic fever. TECHNIQUE: CT chest, abdomen, and pelvis acquired with 94 cc Isovue 370 IV contrast. COMPARISON: CT abdomen and pelvis 04/15/2022. FINDINGS: CHEST: Lungs and pleura: 10 mm subpleural nodule in the left lower lobe (series 2, image 58). Additional few scattered sub-6 mm pulmonary nodules, some which appear new since prior study such as a 3 mm nodule in the right lower lobe (series 2, image 60). No acute infiltrates. No pleural effusions or pneumothorax. Cardiovascular structures: Heart size is normal. Thoracic aorta and main pulmonary artery are normal in caliber. Coronary artery calcifications. Right chest wall port catheter terminates near the cavoatrial junction. Mediastinum and cortes: No mass or adenopathy. Chest wall and axilla: No mass or adenopathy. Bilateral gynecomastia. Bones: Degenerative changes. ABDOMEN AND PELVIS: Liver: Subcentimeter hypodense focus in the left hepatic lobe is too small to accurately characterize but unchanged. Gallbladder and bile ducts: Status post cholecystectomy. Interval percutaneous transhepatic biliary drainage catheter placement. Persistent mild intra and extrahepatic biliary ductal dilation. Minimal pneumobilia. Spleen: Unremarkable. Adrenal glands: Unremarkable. Pancreas: Status post Whipple procedure. No discrete mass identified. Removal of pancreatic duct stent. Kidneys: Unremarkable. GI tract: Perigastric postsurgical changes. Mild haziness surrounding the left upper quadrant proximal small bowel loops. Scattered colonic diverticula without evidence of diverticulitis. No evidence of obstruction. Lymph nodes: Prominent central mesenteric nodes, unchanged. Vascular structures: Scattered atherosclerotic calcifications. Miscellaneous: Fat containing umbilical hernia. Mild mesenteric edema. No focal fluid collection. No free air. Pelvic organs: Evaluation limited by hardware streak artifact. Bones: Degenerative changes. Right hip arthroplasty. IMPRESSION: 1. Mild haziness surrounding the left upper quadrant proximal small bowel loops, nonspecific may reflect enteritis. 2. Interval percutaneous transhepatic biliary drainage catheter placement with persistent mild biliary ductal dilation. 3. Stable indeterminate left hepatic lobe lesion. 4. Status post Whipple procedure. Removal of pancreatic duct stent. 5. Unchanged prominent central mesenteric nodes. 6. Scattered pulmonary nodules measuring up to 10 mm, some of which appear new since prior study. Findings are indeterminate but metastatic disease would be a differential consideration. Recommend continued attention on follow-up studies. Please note that all CT scans at this facility use dose modulation, iterative reconstruction, and/or weight-based dosing when appropriate to reduce radiation dose to as low as reasonably achievable. Dictated by Bill Lenz MD @ 05/02/2023 10:22:36 PM (Electronic Signature) ECG Data Attestation: I personally reviewed and interpreted this ECG as follows: (Sinus rhythm with PVC, rate 84 beats per minute. Low voltage QRS noted. No definitive active ischemia. Poor R-wave progression in the anterior precordial leads.) Prior ECG tracings: not available for review Critical Care Time Critical Care Time Critical Care Time: No Discharge Plan Discharge Clinical Impression: Neutropenic fever Patient Disposition: Admitted As Observation
--- NOTE | 2023-05-02 16:14 | XR_ITS ---
Patient: MILAGROS RAIN Facility:?[facility] Patient ID:?[id number] Site Patient ID:?[id number] Site :?1950 Study:?XRay-Chest 1V-05/02/2023 4:30:33 PM Ordering Physician:?DR. NAVARRETE Final Report: Indication : Vertigo Comparison: None available. Technique: Single AP view chest Findings: There is right-sided Port-A-Cath. There is chronic interstitial change. There is mild central bronchial thickening. There is no dense consolidation, effusion or pneumothorax. The cardiomediastinal silhouette is within normal limits. The bony thorax is grossly intact. Impression: Mild central bronchial thickening without dense consolidation. Dictated by Mejia Braxton MD @ 05/02/2023 4:38:45 PM Signed by:?Mejia Braxton MD @05/02/2023 4:38:45 PM (Electronic Signature)
[2023-05-02 16:51] LABS: Lactate* 1.4 mmol/L (0.5-1.9)
[2023-05-02 16:53] LABS: Hemoglobin* 10.7 gm/dL (13.5-17.5); Lymphocytes Percent Auto 18.3 % (20-44); Mean Corpuscular HGB Conc 35 gm/dL (32-36); Mean Corpuscular Hemoglobin 35 pg (26-34); Mean Corpuscular Volume 102 fL (80-100); Monocytes Percent Auto 31.7 % (0.0-11.0); Neutrophils Percent Auto 47.6 % (42.0-72.0); Platelet Count* 144 K/uL (140-440); RDW Coefficient of Variation % 12.9 % (11.5-15.5); Red Blood Count 3.03 m/uL (4.30-5.90)
[2023-05-02 16:54] LABS: Basophils Percent Auto 1.2 % (0.0-3.0); Eosinophils Percent Auto 0.6 % (0.0-7.0); Immature Granulocytes Pct Auto 0.6 %; Slide Review Reflex Yes
[2023-05-02 16:55] LABS: White Blood Count* 1.64 K/uL (4.50-11.00)
[2023-05-02 17:07] LABS: Albumin* 3.1 g/dL (3.3-5.0)
[2023-05-02 17:08] LABS: Chloride* 102 mmol/L (96-114); Potassium* 3.7 mmol/L (3.6-5.1); Sodium* 133 mmol/L (135-149)
[2023-05-02 17:10] LABS: Anion Gap 8 mEq/L (7-15); Bilirubin Direct* 0.6 mg/dL (0.0-0.5); Bilirubin Total* 1.5 mg/dL (0.1-1.5); Carbon Dioxide* 23 mmol/L (20-32); Creatinine* 0.7 mg/dL (0.5-1.5); Est. Creatinine Clearance* 70.07; Estimated Glomerular Filt Rate 97 ml/min; Total Protein* 6.7 g/dL (6.0-8.3)
[2023-05-02] MEDS: 0.9 % SODIUM CHLORIDE 1000 ml 1,000 ML IV (17:10)
[2023-05-02 17:11] LABS: Alanine Aminotransferase* 171 U/L (4-50); Alkaline Phosphatase* 518 U/L (40-150); Aspartate Amino Transferase* 195 U/L (12-35); Blood Urea Nitrogen* 18 mg/dL (7-30); Calcium* 8.6 mg/dL (8.4-10.6); Glucose* 135 mg/dL (60-115)
[2023-05-02 17:27] LABS: Slide Review Acceptable Review (Acceptable)
[2023-05-02 17:28] LABS: PCR FLU A Negative PCR FLU A (Negative); PCR FLU B Negative PCR FLU B (Negative); PCR RSV Negative PCR RSV (Negative); SARS PCR* Negative SARS-CoV-2 (Negative)
[2023-05-02] MEDS: LACTATED RINGERS 1000 ML 1,000 ML IV (18:29)
[2023-05-02] MEDS: PIPERACILLIN/TAZOBACTAM 3.375 GM in 0.9 % SODIUM CHLORIDE Mini-bag 100 ML IVPB (18:29)
--- NOTE | 2023-05-02 18:33 | CT_ITS ---
Patient: MILAGROS RAIN Facility:?[facility] Patient ID:?[id number] Site Patient ID:?[id number]. Site :?1950 Study:?CT-Chest/Abd/Pelvis W/IV-05/02/2023 7:42:00 PM Ordering Physician:SOLOMON Final Report: INDICATION: Pancreatic cancer, neutropenic fever. TECHNIQUE: CT chest, abdomen, and pelvis acquired with 94 cc Isovue 370 IV contrast. COMPARISON: CT abdomen and pelvis 04/15/2022. FINDINGS: CHEST: Lungs and pleura: 10 mm subpleural nodule in the left lower lobe (series 2, image 58). Additional few scattered sub-6 mm pulmonary nodules, some which appear new since prior study such as a 3 mm nodule in the right lower lobe (series 2, image 60). No acute infiltrates. No pleural effusions or pneumothorax. Cardiovascular structures: Heart size is normal. Thoracic aorta and main pulmonary artery are normal in caliber. Coronary artery calcifications. Right chest wall port catheter terminates near the cavoatrial junction. Mediastinum and cortes: No mass or adenopathy. Chest wall and axilla: No mass or adenopathy. Bilateral gynecomastia. Bones: Degenerative changes. ABDOMEN AND PELVIS: Liver: Subcentimeter hypodense focus in the left hepatic lobe is too small to accurately characterize but unchanged. Gallbladder and bile ducts: Status post cholecystectomy. Interval percutaneous transhepatic biliary drainage catheter placement. Persistent mild intra and extrahepatic biliary ductal dilation. Minimal pneumobilia. Spleen: Unremarkable. Adrenal glands: Unremarkable. Pancreas: Status post Whipple procedure. No discrete mass identified. Removal of pancreatic duct stent. Kidneys: Unremarkable. GI tract: Perigastric postsurgical changes. Mild haziness surrounding the left upper quadrant proximal small bowel loops. Scattered colonic diverticula without evidence of diverticulitis. No evidence of obstruction. Lymph nodes: Prominent central mesenteric nodes, unchanged. Vascular structures: Scattered atherosclerotic calcifications. Miscellaneous: Fat containing umbilical hernia. Mild mesenteric edema. No focal fluid collection. No free air. Pelvic organs: Evaluation limited by hardware streak artifact. Bones: Degenerative changes. Right hip arthroplasty. IMPRESSION: 1. Mild haziness surrounding the left upper quadrant proximal small bowel loops, nonspecific may reflect enteritis. 2. Interval percutaneous transhepatic biliary drainage catheter placement with persistent mild biliary ductal dilation. 3. Stable indeterminate left hepatic lobe lesion. 4. Status post Whipple procedure. Removal of pancreatic duct stent. 5. Unchanged prominent central mesenteric nodes. 6. Scattered pulmonary nodules measuring up to 10 mm, some of which appear new since prior study. Findings are indeterminate but metastatic disease would be a differential consideration. Recommend continued attention on follow-up studies. Please note that all CT scans at this facility use dose modulation, iterative reconstruction, and/or weight-based dosing when appropriate to reduce radiation dose to as low as reasonably achievable. Dictated by Bill Lenz MD @ 05/02/2023 10:22:36 PM Signed by:?Bill Lenz MD @05/02/2023 10:22:36 PM (Electronic Signature)
[2023-05-02 18:37] LABS: Appearance Urine Clear (Clear); Bilirubin Urine 1+ (Negative); Blood Urine Negative (Negative); Color Urine Amber (Yellow); Glucose Urine Negative (Negative); Ketones Urine Negative (Negative); Leukocyte Esterase Urine Negative (Negative); Nitrite Urine Negative (Negative); Protein Urine Negative (Negative)
[2023-05-02 18:48] LABS: RBC Urine 0-2 (0-2); WBC Urine 0-2 (0-5)
[2023-05-02] MEDS: ACETAMINOPHEN 325 MG TABLET 650 MG PO (19:03)
--- NOTE | 2023-05-02 21:41 | ED.NURSE ---
Given ham sandwich and apple juice to eat. is present and given ok by Dr. Aguilar to take own medications.
--- NOTE | 2023-05-02 21:55 | ED.NURSE ---
given report to M/S staff and plan to admit to room 277 via wc.
--- NOTE | 2023-05-02 22:29 | PM.IMHP1 ---
Hospitalist- H&P: HPI History of Present Illness Date Seen: 05/02/23 Chief complaint: Pancreatic cancer-dizzy Narrative: Marcial Siu is a 73 year old male with a history of pancreatic cancer (diagnosed 02/2021, s/p Whipple in 03/2021) who presented to the ER today for fever. He was recently diagnosed with recurrence of his pancreatic cancer and started Abraxane and gemcitabine last week (will be having this every other week for 4 months). Today, he woke up with a temperature of a 101?, and called [facility], who recommended ED for workup. He notes mild achiness yesterday, resolved. No recent travel or illness. No sick contacts, no cough, no abdominal symptoms or dysuria/polyuria. ER Course and Findings: - persistent fever noted in the emergency room, WBC 1.64, ANC .8 - LFTs mildly elevated (higher than baseline) - no concerning acute findings on CT (formal radiology read below) - blood cultures obtained and Zosyn initiated after discussion with [place] [facility], who recommends 48 hour monitoring and antibiotics CT results IMPRESSION: 1. Mild haziness surrounding the left upper quadrant proximal small bowel loops, nonspecific may reflect enteritis. 2. Interval percutaneous transhepatic biliary drainage catheter placement with persistent mild biliary ductal dilation. 3. Stable indeterminate left hepatic lobe lesion. 4. Status post Whipple procedure. Removal of pancreatic duct stent. 5. Unchanged prominent central mesenteric nodes. 6. Scattered pulmonary nodules measuring up to 10 mm, some of which appear new since prior study. Findings are indeterminate but metastatic disease would be a differential consideration. Recommend continued attention on follow-up studies. Patient's history is updated below. PCP is Dr. Hudson locally. Review of Systems Status of ROS: Reports: 10 or more systems reviewed and unremarkable except as noted in History and below [facility] Medical History (Updated 05/02/23 @ 23:37 by Roshni Bolton MD) Gout ?M10.9 - Gout, unspecified (ICD-10) Orthostatic hypotension ?I95.1 - Orthostatic hypotension (ICD-10) Pancreatic cancer ?C25.9 - Malignant neoplasm of pancreas, unspecified (ICD-10) Surgical History (Updated 05/02/23 @ 22:27 by Roshni Bolton MD) H/O Whipple procedure ?Z90.410 - Acquired total absence of pancreas (ICD-10) ?Z90.49 - Acquired absence of other specified parts of digestive tract (ICD-10) S/P hip replacement ?Z96.649 - Presence of unspecified artificial hip joint (ICD-10) Social History (Updated 05/02/23 @ 23:34 by Roshni Bolton MD) Narrative: Retired from [employer] in [place]. Lives with Maritza (medical decision maker if needed), 2 adult children in [place]. No current smoking, no alcohol use. Active daily. Requests full code status. Smoking Status: Former smoker Do you use any of these nicotine containing products: None Second hand tobacco smoke exposure: No How often do you have a drink containing alcohol: never How often do you have six or more drinks on one occasion: Never AUDIT-C Alcohol total score: 0 Non-prescribed substance use: denies use service: No Meds Home Medications and Allergies Home Medications Medication Instructions Recorded Confirmed Type aspirin 81 mg capsule 81 mg PO DAILY 05/02/23 05/02/23 History ciprofloxacin HCl 500 mg tablet 500 mg PO BID 05/02/23 History colchicine 0.6 mg capsule 0.6 mg PO DAILY PRN 05/02/23 05/02/23 History gabapentin 100 mg capsule mg PO 05/02/23 History lidocaine 5 % topical patch 1 patch topical Q24H 05/02/23 05/02/23 History fkbtlx-rbajoopu-bupogzz 3 cap PO 05/02/23 History 36,000-114,000-180,000 unit capsule,delay rel (Creon) magnesium oxide 400 mg (241.3 mg 400 mg PO BID 05/02/23 05/02/23 History magnesium) tablet melatonin 3 mg capsule 3 mg PO DAILY 05/02/23 05/02/23 History metoclopramide HCl 10 mg tablet 10 mg PO Q6H 05/02/23 05/02/23 History (Reglan) midodrine 10 mg tablet 10 mg PO 5XD 05/02/23 05/02/23 History pantoprazole 40 mg tablet,delayed 40 mg PO DAILY 05/02/23 05/02/23 History release polyethylene glycol 3350 17 17 g PO DAILY 05/02/23 05/02/23 History gram/dose oral powder prochlorperazine maleate 10 mg 10 mg PO Q6H PRN nausea 05/02/23 05/02/23 History tablet sennosides 8.6 mg tablet 8.6 mg PO DAILY 05/02/23 05/02/23 History sildenafil 100 mg tablet 100 mg PO DAILY PRN intercourse 05/02/23 05/02/23 History trazodone 50 mg tablet 50 mg PO DAILY 05/02/23 05/02/23 History Home Medication Comments: On midodrine for symptomatic orthostatic hypotension Allergies Allergy/AdvReac Type Severity Reaction Status Date / Time No Known Drug Allergies Allergy Verified 05/02/23 15:45 Exam Narrative: Exam Narrative: GEN: Alert and oriented, appears nontoxic. Sitting comfortably in bed and speaking in full sentences HEENT: EOMIs bilaterally, no scleral icterus CV: RRR, No concerning murmurs R: LCTA bilaterally without concerning wheezing, air movement adequate Abdomen: soft, nontender, tolerates exam Ext: wwp, no concerning edema Skin: No concerning skin lesions or rashes on exposed skin Neuro: Nonfocal Psych: Appropriate Const: Vital Signs, click to edit/add: Vital Signs - 24 hr 05/02/23 15:41 05/02/23 16:14 05/02/23 17:21 Temperature 98.1 F Pulse Rate 83 Pulse Rate [Pulse Oximeter] 109 H Respiratory Rate 16 Blood Pressure 90/54 L Blood Pressure [Ri ght Upper Arm] 111/75 Pulse Oximetry 95 96 94 [facility] 05/02/23 17:22 05/02/23 17:30 05/02/23 17:31 Temperature Pulse Rate 79 77 80 Pulse Rate [Pulse Oximeter] Respiratory Rate Blood Pressure 69/39 L Blood Pressure [Ri ght Upper Arm] Pulse Oximetry 95 93 95 [facility] 05/02/23 17:45 05/02/23 17:47 05/02/23 18:00 Temperature Pulse Rate 79 81 77 Pulse Rate [Pulse Oximeter] Respiratory Rate Blood Pressure 99/59 L Blood Pressure [Ri ght Upper Arm] Pulse Oximetry 92 96 96 Oxygen Delivery Ia thod 05/02/23 18:01 05/02/23 18:15 05/02/23 18:30 Temperature Pulse Rate 79 76 80 Pulse Rate [Pulse Oximeter] Respiratory Rate Blood Pressure 103/58 L Blood Pressure [Ri ght Upper Arm] Pulse Oximetry 95 96 96 [facility] 05/02/23 18:32 05/02/23 18:45 05/02/23 19:00 Temperature Pulse Rate 76 77 75 Pulse Rate [Pulse Oximeter] Respiratory Rate Blood Pressure 96/57 L Blood Pressure [Ri ght Upper Arm] Pulse Oximetry 95 96 95 Oxygen Delivery Me thod 05/02/23 19:01 05/02/23 19:03 05/02/23 19:15 Temperature 100.1 F H Pulse Rate 78 74 Pulse Rate [Pulse Oximeter] Respiratory Rate Blood Pressure 83/53 L Blood Pressure [Ri ght Upper Arm] Pulse Oximetry 96 96 Oxygen Delivery Me thod 05/02/23 19:30 05/02/23 19:31 05/02/23 19:32 Temperature Pulse Rate 76 79 79 Pulse Rate [Pulse Oximeter] Respiratory Rate Blood Pressure 108/61 104/52 L Blood Pressure [Ri ght Upper Arm] Pulse Oximetry 96 96 94 Oxygen Delivery Me thod 05/02/23 19:45 05/02/23 20:00 05/02/23 20:02 Temperature Pulse Rate 77 76 76 Pulse Rate [Pulse Oximeter] Respiratory Rate Blood Pressure 92/54 L Blood Pressure [Ri ght Upper Arm] Pulse Oximetry 96 96 95 Oxygen Delivery Me thod 05/02/23 20:15 05/02/23 20:30 05/02/23 20:32 Temperature Pulse Rate 69 71 72 Pulse Rate [Pulse Oximeter] Respiratory Rate Blood Pressure 85/56 L Blood Pressure [Ri ght Upper Arm] Pulse Oximetry 95 96 96 Oxygen Delivery Me thod 05/02/23 20:45 05/02/23 21:00 05/02/23 21:02 Temperature Pulse Rate 65 65 63 Pulse Rate [Pulse Oximeter] Respiratory Rate Blood Pressure 101/65 Blood Pressure [Ri ght Upper Arm] Pulse Oximetry 96 96 98 Oxygen Delivery Me thod 05/02/23 21:15 05/02/23 21:30 05/02/23 21:31 Temperature Pulse Rate 69 64 64 Pulse Rate [Pulse Oximeter] Respiratory Rate Blood Pressure 98/62 Blood Pressure [Ri ght Upper Arm] Pulse Oximetry 99 95 95 Oxygen Delivery Me thod 05/02/23 21:45 Temperature Pulse Rate 67 Pulse Rate [Pulse Oximeter] Respiratory Rate Blood Pressure Blood Pressure [Ri ght Upper Arm] Pulse Oximetry 96 Oxygen Delivery Me od Hospitalist - H&P: Result Labs Labs: Short CBC 05/02/23 Range/Units 16:42 WBC 1.64 L* (4.50-11.00) K/uL Hgb 10.7 L (13.5-17.5) gm/dL Hct 31.0 L (37.0-53.0) % Plt Count 144 (140-440) K/uL BMP 05/02/23 16:42 Sodium 133 L Potassium 3.7 Chloride 102 Carbon Dioxide 23 BUN 18 Creatinine 0.7 Glucose 135 H Calcium 8.6 Liver Function 05/02/23 Range/Units 16:42 Total Bilirubin 1.5 (0.1-1.5) mg/dL Direct Bilirubin 0.6 H (0.0-0.5) mg/dL AST 195 H (12-35) U/L ALT 171 H (4-50) U/L Alkaline Phosphatase 518 H (40-150) U/L Albumin 3.1 L (3.3-5.0) g/dL Urine 05/02/23 Range/Units 16:15 Urine Color Eduarda A (Yellow) Urine Appearance Clear (Clear) Urine pH 7.0 (5.0-8.5) Ur Specific [place] 1.020 (1.000-1.030) Urine Protein Negative (Negative) Urine Glucose (UA) Negative (Negative) Assessment and Plan Assessment and plan (1) Neutropenic fever: Problem comment: - source unclear, cultures pending - empiric Zosyn (05/02/23), follow labs Status: Acute (2) Pancreatic cancer: Problem comment: - follows with [facility], diagnosed 02/2021, recurrence 2023 Status: Acute (3) Orthostatic hypotension: Problem comment: - takes Midodrine at home prn (up to 5x/day) Status: Acute Plan - per above - Lovenox and SCDs for ppx - home with when medically appropriate for discharge - requests full code status
[2023-05-03] MEDS: SODIUM CHLORIDE 0.9 % (FLUSH) 10 ML SYRINGE 5 ML IVF ×4 (01:24→21:08)
[2023-05-03] MEDS: PIPERACILLIN/TAZOBACTAM 3.375 GM in 0.9 % SODIUM CHLORIDE Mini-bag 100 ML IVPB ×4 (01:24→23:09)
[2023-05-03 03:00] VITALS: BP 115/64; PULSE 63; RESP 18; TEMP 36.7; O2SAT 94
--- NOTE | 2023-05-03 06:36 | PC.NURSE ---
Shift note: No increased temps overnight, no c/o pain, no nausea, feeling fatigued. Some lightheadedness with ambulation which is not new according to the pt. He is independent in the room, voiding.
[2023-05-03 07:00] VITALS: BP 100/68; PULSE 78; RESP 18; RESP 19; TEMP 36.8; O2SAT 95
[2023-05-03 07:04] LABS: Basophils Percent Auto 1.4 % (0.0-3.0); Eosinophils Percent Auto 3.6 % (0.0-7.0); Hematocrit 28.8 % (37.0-53.0); Hemoglobin* 9.8 gm/dL (13.5-17.5); Immature Granulocytes Pct Auto 0.7 %; Mean Corpuscular HGB Conc 34 gm/dL (32-36); Mean Corpuscular Hemoglobin 35 pg (26-34); Mean Corpuscular Volume 104 fL (80-100); Neutrophils Percent Auto 42.3 % (42.0-72.0); Platelet Count* 143 K/uL (140-440); Red Blood Count 2.78 m/uL (4.30-5.90); White Blood Count* 2.77 K/uL (4.50-11.00)
[2023-05-03 07:05] LABS: Albumin* 2.7 g/dL (3.3-5.0); Chloride* 105 mmol/L (96-114); Potassium* 3.9 mmol/L (3.6-5.1); Sodium* 134 mmol/L (135-149)
[2023-05-03 07:07] LABS: Creatinine* 0.7 mg/dL (0.5-1.5); Est. Creatinine Clearance* 70.07; Estimated Glomerular Filt Rate 97 ml/min
[2023-05-03 07:08] LABS: Alanine Aminotransferase* 129 U/L (4-50); Alkaline Phosphatase* 404 U/L (40-150); Anion Gap 5 mEq/L (7-15); Aspartate Amino Transferase* 122 U/L (12-35); Bilirubin Total* 1.5 mg/dL (0.1-1.5); Blood Urea Nitrogen* 18 mg/dL (7-30); Calcium* 8.5 mg/dL (8.4-10.6); Carbon Dioxide* 24 mmol/L (20-32); Glucose* 102 mg/dL (60-115)
[2023-05-03 07:50] LABS: Slide Review Reflex No
[2023-05-03 09:53] VITALS: BMI 27.4
[2023-05-03] MEDS: HEPARIN 500 UNIT/5 ML SYRINGE IVF (10:41)
--- NOTE | 2023-05-03 10:52 | W.PM.INFD_ITS ---
Consultation Information Consultation Information Date of Consult: 05/03/23 Requesting Physician: Lisa Vazquez Reason for Consult: Neutropenic fevers with GPR bacteremia on 05/02 blood cx x 2 Consultation Statement: This patient recommendation is based on a telemedicine consult request which was completed asynchronously through chart review and information provided by the primary physician. The patient was not seen or examined today. The evaluation is consultative in nature and all patient care and treatment decisions can either be accepted or rejected by the patient's primary hospital-based treating physician using their own independent medical judgment for their patient. [employer] contact information: Please call [facility] call center [phone] HPI - Infectious Disease History of Present Illness History of Present Illness: 73yoM with hx of orthostatic hypotension, gout, DJD s/p R MARY and pancreatic cancer diagnosed in 02/2021 s/p Whipple procedure in 03/2021 with PTC placement for biliary drainage. He had ongoing metastatic disease, and was recently placed on Abraxane and gemictabine ~1 week ago (given via R sided port), with plans to continue therapy for 4 months tentatively per notes. He presented to [facility] on 05/02/23 with complaints of fevers up to 101 F at home occuring for the prior 24 hours, with associated myagias. He had no cough, reported CP or SOB, no N/V/D, no sx's and no clear sick contacts per review of notes. Here, he had a low grade temp of 100.1 F, with associated hypotension. WBC count was low at 1.64, with an ANC of 0.8, Hb was 10.7 and LFTs were notable for an AST of 195, ALT of 171 and alk phos of 518, all up. UA was neg for LE/nitrite. COVID/Flu/RSV testing were all neg. CXR showed some mild central bronchial thickening without any clear dense consolidations seen, along with presence of his R chest port. CT C/A/P was then done, which postop changes from his Whipple, along with mild haziness in the LUQ proximal SB loops, c/f possible enteritis. In addition, some mild biliary ductal dilation was noted in the setting of his PTC being in place. Some new lung nodules were seen in the setting of his prior known lung mets, some measuring up to 1 cm in size. An indeterminate L hepatic lobe lesion was also seen, along with some unchanged mesenteric lymphadenopathy. He was admitted for suspected neutropenic fever, blood cx x 2 were obtained, and the patient was placed on empiric Zosyn. In the interim, blood cx from 05/02 returned positive for GPR in 2/2 sets. Given this, ID was consulted on 05/03/23 to help assist in further management. He is currently afebrile, but remains intermittently hypotensive (unclear if this is from orthostatic issues or not). He is breathing on RA. Most recent labs show a WBC count that is improved now at 2.77, with an improved ANC of 1.2. Hb is 9.8 (low) and platelets are WNL at 143,000. Na is low at 134, K is 3.9 and Cr is 0.7. LFTs are still up but improved from before, with an AST of 122 now, ALT of 129 and alk phos of 404. He is on Zosyn 3.375g IV Q6H monotherapy at this [facility] Medical History (Updated 05/02/23 @ 23:37 by Roshni Bolton MD) Gout ?M10.9 - Gout, unspecified (ICD-10) Orthostatic hypotension ?I95.1 - Orthostatic hypotension (ICD-10) Pancreatic cancer ?C25.9 - Malignant neoplasm of pancreas, unspecified (ICD-10) Surgical History (Updated 05/02/23 @ 22:27 by Roshni Bolton MD) H/O Whipple procedure ?Z90.410 - Acquired total absence of pancreas (ICD-10) ?Z90.49 - Acquired absence of other specified parts of digestive tract (ICD- 10) S/P hip replacement ?Z96.649 - Presence of unspecified artificial hip joint (ICD-10) Social History (Updated 05/02/23 @ 23:34 by Roshni Bolton MD) Narrative: Retired from [employer] in [place]. Lives with Maritza (medical decision maker if needed), 2 adult children in [place]. No current smoking, no alcohol use. Active daily. Requests full code status. What is your current living situation?: I presently have a place to live Problems where you live: no known problems Problems where you live details: NA In the past 12 months, utilities in danger of being shut off: no In past 12 months, lack of transportation kept you from medical appts, meetings, work, or getting things needed for daily living: no In the past 12 mos, have been you worried that your food would run out before you had money to buy more?: never true In the past 12 mos, the food you bought just didn't last and you didn't have money to buy more?: never true Highest level of school completed/degree received: Associate degree: academic program Smoking Status: Never smoker Do you use any of these nicotine containing products: None Second hand tobacco smoke exposure: No How often do you have a drink containing alcohol: never How often do you have six or more drinks on one occasion: Never AUDIT-C Alcohol total score: 0 Non-prescribed substance use: denies use Caffeine: Yes (Rare) How often does anyone, including family, friends and others, physically hurt you : never How often does anyone, including family, friends and others, insult or talk down to you: never How often does anyone, including family, friends and others, threaten you with harm: never How often does anyone, including family, friends and others, scream or curse at you: never service: No Home Medications and Allergies Home Medications and Allergies Inpatient Medications: Active Medications Generic Name Dose Route Start Last Admin Trade Name Freq PRN Reason Stop Dose Admin Acetaminophen 975 mg 05/02/23 23:20 Acetaminophen 325 Mg Tablet PO Q6H PRN Enoxaparin Sodium 30 mg 05/03/23 21:00 Enoxaparin 30 Mg/0.3ml Inj SUBCUT HS MIKE Heparin Sodium (Porcine) 500 unit 05/03/23 10:35 05/03/23 10:41 Heparin 500 Unit/5 Ml Syringe IVF 500 unit FLUSHPRN PRN Administration Piperacillin Sod/Tazobactam 100 mls @ 200 mls/hr 05/03/23 01:30 05/03/23 08:36 Sod 3.375 gm/ Sodium Chloride IVPB 200 mls/hr Q6H MIKE Administration Melatonin 6 mg 05/02/23 23:20 Melatonin 3 Mg Tablet PO HS PRN Sodium Chloride 5 ml 05/02/23 23:20 05/03/23 10:41 Sodium Chloride 0.9 % (Flush) 10 Ml Syringe IVF 5 ml .FLUSH PRN Administration Sodium Chloride 5 ml 05/03/23 09:00 05/03/23 08:39 Sodium Chloride 0.9 % (Flush) 10 Ml Syringe IVF 5 ml BID MIKE Administration Discontinued Medications Generic Name Dose Route Start Last Admin Trade Name Valdez PRN Reason Stop Dose Admin Acetaminophen 650 mg 05/02/23 18:36 05/02/23 19:03 Acetaminophen 325 Mg Tablet PO 05/02/23 18:37 650 mg ONCE ONE Administration Acetaminophen Confirm 05/02/23 18:57 Acetaminophen 325 Mg Tablet Administered 05/02/23 18:58 Dose 650 mg .ROUTE .STK-MED ONE Sodium Chloride 1,000 mls @ 1,000 mls/hr 05/02/23 16:15 05/02/23 18:20 0.9 % Sodium Chloride 1000 Ml IV 05/02/23 17:14 Infused .Q1H MIKE Infusion Lactated Ringer's 1,000 mls @ 1,000 mls/hr 05/02/23 18:18 05/02/23 21:15 Lactated Ringers 1000 Ml IV 05/02/23 19:17 Infused .Q1H ONE Infusion Piperacillin Sod/Tazobactam 100 mls @ 200 mls/hr 05/02/23 18:18 05/02/23 21:16 Sod 3.375 gm/ Sodium Chloride IVPB 05/02/23 18:19 Infused ONCE ONE Infusion Piperacillin Sod/Tazobactam Sod Confirm 05/02/23 18:21 Piperacillin/Tazobactam 3.375 Gm Inj Administered 05/02/23 18:22 Dose 3.375 gm .ROUTE .STK-MED ONE Allergies Allergy/AdvReac Type Severity Reaction Status Date / Time No Known Drug Allergies Allergy Verified 05/02/23 15:45 Objective - Infectious Disease Objective Vital Signs: Vital Signs - 24 hr 05/02/23 15:41 05/02/23 16:14 05/02/23 17:21 Temperature 98.1 F Pulse Rate 83 Pulse Rate [Pulse Oximeter] 109 H Respiratory Rate 16 Blood Pressure 90/54 L Blood Pressure [Left Radial Artery] Blood Pressure [Right Arm] Blood Pressure [Right Upper Arm] 111/75 Pulse Oximetry 95 96 94 Oxygen Delivery Method Room Air 05/02/23 17:22 05/02/23 17:30 05/02/23 17:31 Temperature Pulse Rate 79 77 80 Pulse Rate [Pulse Oximeter] Respiratory Rate Blood Pressure 69/39 L Blood Pressure [Left Radial Artery] Blood Pressure [Right Arm] Blood Pressure [Right Upper Arm] Pulse Oximetry 95 93 95 Oxygen Delivery Method 05/02/23 17:45 05/02/23 17:47 05/02/23 18:00 Temperature Pulse Rate 79 81 77 Pulse Rate [Pulse Oximeter] Respiratory Rate Blood Pressure 99/59 L Blood Pressure [Left Radial Artery] Blood Pressure [Right Arm] Blood Pressure [Right Upper Arm] Pulse Oximetry 92 96 96 Oxygen Delivery Method 05/02/23 18:01 05/02/23 18:15 05/02/23 18:30 Temperature Pulse Rate 79 76 80 Pulse Rate [Pulse Oximeter] Respiratory Rate Blood Pressure 103/58 L Blood Pressure [Left Radial Artery] Blood Pressure [Right Arm] Blood Pressure [Right Upper Arm] Pulse Oximetry 95 96 96 Oxygen Delivery Method 05/02/23 18:32 05/02/23 18:45 05/02/23 19:00 Temperature Pulse Rate 76 77 75 Pulse Rate [Pulse Oximeter] Respiratory Rate Blood Pressure 96/57 L Blood Pressure [Left Radial Artery] Blood Pressure [Right Arm] Blood Pressure [Right Upper Arm] Pulse Oximetry 95 96 95 Oxygen Delivery Method 05/02/23 19:01 05/02/23 19:03 05/02/23 19:15 Temperature 100.1 F H Pulse Rate 78 74 Pulse Rate [Pulse Oximeter] Respiratory Rate Blood Pressure 83/53 L Blood Pressure [Left Radial Artery] Blood Pressure [Right Arm] Blood Pressure [Right Upper Arm] Pulse Oximetry 96 96 Oxygen Delivery Method 05/02/23 19:30 05/02/23 19:31 05/02/23 19:32 Temperature Pulse Rate 76 79 79 Pulse Rate [Pulse Oximeter] Respiratory Rate Blood Pressure 108/61 104/52 L Blood Pressure [Left Radial Artery] Blood Pressure [Right Arm] Blood Pressure [Right Upper Arm] Pulse Oximetry 96 96 94 Oxygen Delivery Method 05/02/23 19:45 05/02/23 20:00 05/02/23 20:02 Temperature Pulse Rate 77 76 76 Pulse Rate [Pulse Oximeter] Respiratory Rate Blood Pressure 92/54 L Blood Pressure [Left Radial Artery] Blood Pressure [Right Arm] Blood Pressure [Right Upper Arm] Pulse Oximetry 96 96 95 Oxygen Delivery Method 05/02/23 20:15 05/02/23 20:30 05/02/23 20:32 Temperature Pulse Rate 69 71 72 Pulse Rate [Pulse Oximeter] Respiratory Rate Blood Pressure 85/56 L Blood Pressure [Left Radial Artery] Blood Pressure [Right Arm] Blood Pressure [Right Upper Arm] Pulse Oximetry 95 96 96 Oxygen Delivery Method 05/02/23 20:45 05/02/23 21:00 05/02/23 21:02 Temperature Pulse Rate 65 65 63 Pulse Rate [Pulse Oximeter] Respiratory Rate Blood Pressure 101/65 Blood Pressure [Left Radial Artery] Blood Pressure [Right Arm] Blood Pressure [Right Upper Arm] Pulse Oximetry 96 96 98 Oxygen Delivery Method 05/02/23 21:15 05/02/23 21:30 05/02/23 21:31 Temperature Pulse Rate 69 64 64 Pulse Rate [Pulse Oximeter] Respiratory Rate Blood Pressure 98/62 Blood Pressure [Left Radial Artery] Blood Pressure [Right Arm] Blood Pressure [Right Upper Arm] Pulse Oximetry 99 95 95 Oxygen Delivery Method 05/02/23 21:45 05/02/23 23:47 05/03/23 03:00 Temperature 98 F 98.1 F Pulse Rate 67 Pulse Rate [Pulse Oximeter] 63 63 Respiratory Rate 18 18 Blood Pressure Blood Pressure [Left Radial Artery] 121/78 115/64 Blood Pressure [Right Arm] Blood Pressure [Right Upper Arm] Pulse Oximetry 96 94 Oxygen Delivery Method Room Air 05/03/23 07:00 05/03/23 07:00 Temperature 98.2 F Pulse Rate Pulse Rate [Pulse Oximeter] 78 Respiratory Rate 19 18 Blood Pressure Blood Pressure [Left Radial Artery] Blood Pressure [Right Arm] 100/68 Blood Pressure [Right Upper Arm] Pulse Oximetry 95 95 Oxygen Delivery Method Room Air Room Air Narrative: Patient was not seen or examined. Results - Infectious Disease Results Labs: 05/02/23 16:42 Blood Blood Culture - Preliminary Gram positive soumya 05/02/23 16:59 Blood Blood Culture - Preliminary Gram positive soumya Laboratory Tests 05/03/23 05/02/23 05/02/23 Range/Units 06:30 16:42 16:15 WBC 2.77 L 1.64 L* (4.50-11.00) K/uL RBC 2.78 L 3.03 L (4.30-5.90) m/uL Hgb 9.8 L 10.7 L (13.5-17.5) gm/dL Hct 28.8 L 31.0 L (37.0-53.0) % MCV 104 H 102 H (80-100) fL MCH 35 H 35 H (26-34) pg MCHC 34 35 (32-36) gm/dL RDW Coeff of Fidelina 13.0 12.9 (11.5-15.5) % Plt Count 143 144 (140-440) K/uL Neut % (Auto) 42.3 47.6 (42.0-72.0) % Lymph % (Auto) 26.0 18.3 L (20-44) % [place] % (Auto) 26.0 H 31.7 H (0.0-11.0) % Eos % (Auto) 3.6 0.6 (0.0-7.0) % Baso % (Auto) 1.4 1.2 (0.0-3.0) % Neut # (Auto) 1.20 L 0.80 L (1.7-7.0) K/uL Lymph # (Auto) 0.70 L 0.30 L (0.90-2.90) K/uL [place] # (Auto) 0.70 0.50 (0.00-0.90) K/UL Eos # (Auto) 0.10 0.00 (0.00-0.50) K/uL Baso # (Auto) 0.00 0.00 (0.00-0.30) K/uL Abs Immat Gran (auto) 0.00 0.00 (0.00-0.30) K/uL Imm/Tot Granulo (auto) 0.7 0.6 % Diff Slide Review Acceptable Review (Acceptable) Sodium 134 L 133 L (135-149) mmol/L Potassium 3.9 3.7 (3.6-5.1) mmol/L Chloride 105 102 (96-114) mmol/L Carbon Dioxide 24 23 (20-32) mmol/L Anion Gap 5 L 8 (7-15) mEq/L BUN 18 18 (7-30) mg/dL Creatinine 0.7 0.7 (0.5-1.5) mg/dL Estimated Creat Clear 70.07 70.07 Estimated GFR 97 97 ml/min Glucose 102 135 H (60-115) mg/dL Lactate 1.4 (0.5-1.9) mmol/L Calcium 8.5 8.6 (8.4-10.6) mg/dL Total Bilirubin 1.5 1.5 (0.1-1.5) mg/dL Direct Bilirubin 0.6 H (0.0-0.5) mg/dL AST 122 H 195 H (12-35) U/L ALT 129 H 171 H (4-50) U/L Alkaline Phosphatase 404 H 518 H (40-150) U/L Total Protein 6.0 6.7 (6.0-8.3) g/dL Albumin 2.7 L 3.1 L (3.3-5.0) g/dL Procalcitonin 10.40 H (<0.50) ng/mL Urine Color Eduarda A (Yellow) Urine Appearance Clear (Clear) Urine pH 7.0 (5.0-8.5) Ur Specific [place] 1.020 (1.000-1.030) Urine Protein Negative (Negative) Urine Glucose (UA) Negative (Negative) Urine Ketones Negative (Negative) Urine Blood Negative (Negative) Urine Nitrite Negative (Negative) Urine Bilirubin 1+ A (Negative) Urine Urobilinogen 2.0 A (0.2-1.0) Ur Leukocyte Esterase Negative (Negative) Urine RBC 0-2 (0-2) Urine WBC 0-2 (0-5) Ur Squamous Epith Cells None (None-Few) Urine Bacteria None (None) SARS-CoV-2 (PCR) (Negative) Influenza Type A (PCR) (Negative) Influenza Type B (PCR) (Negative) RSV (PCR) (Negative) 05/02/23 Range/Units 16:14 WBC (4.50-11.00) K/uL RBC (4.30-5.90) m/uL Hgb (13.5-17.5) gm/dL Hct (37.0-53.0) % MCV (80-100) fL MCH (26-34) pg MCHC (32-36) gm/dL RDW Coeff of Fidelina (11.5-15.5) % Plt Count (140-440) K/uL Neut % (Auto) (42.0-72.0) % Lymph % (Auto) (20-44) % [place] % (Auto) (0.0-11.0) % Eos % (Auto) (0.0-7.0) % Baso % (Auto) (0.0-3.0) % Neut # (Auto) (1.7-7.0) K/uL Lymph # (Auto) (0.90-2.90) K/uL [place] # (Auto) (0.00-0.90) K/UL Eos # (Auto) (0.00-0.50) K/uL Baso # (Auto) (0.00-0.30) K/uL Abs Immat Gran (auto) (0.00-0.30) K/uL Imm/Tot Granulo (auto) % Diff Slide Review (Acceptable) Sodium (135-149) mmol/L Potassium (3.6-5.1) mmol/L Chloride (96-114) mmol/L Carbon Dioxide (20-32) mmol/L Anion Gap (7-15) mEq/L BUN (7-30) mg/dL Creatinine (0.5-1.5) mg/dL Estimated Creat Clear Estimated GFR ml/min Glucose (60-115) mg/dL Lactate (0.5-1.9) mmol/L Calcium (8.4-10.6) mg/dL Total Bilirubin (0.1-1.5) mg/dL Direct Bilirubin (0.0-0.5) mg/dL AST (12-35) U/L ALT (4-50) U/L Alkaline Phosphatase (40-150) U/L Total Protein (6.0-8.3) g/dL Albumin (3.3-5.0) g/dL Procalcitonin (<0.50) ng/mL Urine Color (Yellow) Urine Appearance (Clear) Urine pH (5.0-8.5) Ur Specific [place] (1.000-1.030) Urine Protein (Negative) Urine Glucose (UA) (Negative) Urine Ketones (Negative) Urine Blood (Negative) Urine Nitrite (Negative) Urine Bilirubin (Negative) Urine Urobilinogen (0.2-1.0) Ur Leukocyte Esterase (Negative) Urine RBC (0-2) Urine WBC (0-5) Ur Squamous Epith Cells (None-Few) Urine Bacteria (None) SARS-CoV-2 (PCR) Negative SARS-CoV-2 (Negative) Influenza Type A (PCR) Negative PCR FLU A (Negative) Influenza Type B (PCR) Negative PCR FLU B (Negative) RSV (PCR) Negative PCR RSV (Negative) Impression & Recommendations Recommendations Impression & Recommendations: 73yoM with hx of orthostatic hypotension, gout, DJD s/p R MARY and pancreatic cancer diagnosed in 02/2021 s/p Whipple procedure in 03/2021 with PTC placement for biliary drainage. He had ongoing metastatic disease, and was recently placed on Abraxane and gemictabine ~1 week ago (given via R sided port), with plans to continue therapy for 4 months tentatively per notes. He presented to [facility] on 05/02/23 with complaints of fevers up to 101 F at home occuring for the prior 24 hours, with associated myagias. He had no cough, reported CP or SOB, no N/V/D, no sx's and no clear sick contacts per review of notes. Here, he had a low grade temp of 100.1 F, with associated hypotension. WBC count was low at 1.64, with an ANC of 0.8, Hb was 10.7 and LFTs were notable for an AST of 195, ALT of 171 and alk phos of 518, all up. UA was neg for LE/nitrite. COVID/Flu/RSV testing were all neg. CXR showed some mild central bronchial thickening without any clear dense consolidations seen, along with presence of his R chest port. CT C/A/P was then done, which postop changes from his Whipple, along with mild haziness in the LUQ proximal SB loops, c/f possible enteritis. In addition, some mild biliary ductal dilation was noted in the setting of his PTC being in place. Some new lung nodules were seen in the setting of his prior known lung mets, some measuring up to 1 cm in size. An indeterminate L hepatic lobe lesion was also seen, along with some unchanged mesenteric lymphadenopathy. He was admitted for suspected neutropenic fever, blood cx x 2 were obtained, and the patient was placed on empiric Zosyn. In the interim, blood cx from 05/02 returned positive for GPR in 2/2 sets. Given this, ID was consulted on 05/03/23 to help assist in further management. Patient had neutropenia with reported fevers at home and a Tmax here of 100.1 F thus far, raising c/f neutropenic fever. He now has high grade GPR bacteremia in 2/2 blood cx sets from 05/02. GPR's tend to only be a limited set of organisms (Listeria, Corynebacterium, Bacillus, Clostridia, Arcanobacterium)--many of these tend to be GI and skin charanjit organisms. Possible sources of GPR in blood include biliary translocation given ductal dilation noted on CT imaging and elevated LFTs on admission (now improving). Alternatively, GI translocation from possible enteritis is possible as welll, given CT imaging findings. The patient has a R MARY, hence PJI should be evalauted for as well, especially if any hip or groin/RLE pain is present. Of particular concern now is a CLABSI, given port is in place. PNA seems unlikely, as does source of infection--however, in setting of neutropenia, if Ucx is positive, would still treat in this particular setting. For now, I would add IV vancomycin to Zosyn, to better cover GPR pending identfication and sensi data. Would remove port and cx tip, and after port is removed, would repeat blood cx daily until we have 2 sets neg x 48 hours--until then, no manager terminal lines should be placed . Given port does go towards RA of heart, would be reasonable to obtain TTE to ensure no endovascular seeding is present, although this would be less likely with a GPR in general. Would obtain X-ray of the R MARY site, and if effusion is present, would obtain workup as outlined below. If diarrhea is present, would obtain stool cx, stool O+P, fecal leukocytes, and C.dif testing to workup for colitis/enteritis. If abdominal pain does present itself or LFTs begin to rise again, would touch base with IR to see if PTC needs to be repositioned or upsized for better drainage. Otherwise, based on GPR identification, sensi data and results of above, we will determine next steps. Please monitor for any signs of infectious seeding (joints, eyes, spine, lungs, SOLE CONDITIONER, psoas, etc)--if suspected, please notify ID right away. Would ideally HOLD chemo at this time given active infectious process. RECOMMENDATIONS: 1. For now, continue Zosyn 3.375g IV Q6H (CrCl>60) for empiric GI/skin charanjit coverage 2. Until GPR identification and sensi data is back, would add IV vancomycin (Pharmacy to manage dosing/levels) 3. Given c/f port site infection in setting of high grade bacteremia and hypotension, would DC port and cx tip 4. After port is removed, would repeat blood cx daily until we have 2 sets neg x 48 hours--until then, no manager terminal lines should be placed 5. Would obtain TTE given above points (high grade GPR bacteremia, immunosuppression, port in RA area) 6. Please obtain X-ray of R MARY site--if effusion or h/w lucency noted at MARY site, or if patient has R MARY site pain/R groin/RLE pain, then would consult Orthopedics for aspiration of R MARY site--if done, please send cell count w/dif, Gram stain, bacterial (aer/anaerobic) cx, fungal stains/cx and crystals, to complete ID workup 7. If diarrhea is noted, would obtain stool cx, stool O+P, fecal leukocytes, and C.dif testing to workup for colitis/enteritis, given CT A/P findings raised c/f enteritis. 8. If abdominal pain does present itself or LFTs begin to rise again, would touch base with IR to see if PTC needs to be repositioned or upsized for better drainage. 9. Otherwise, based on GPR identification, sensi data and results of above, we will determine next steps. 10. Please monitor for any signs of infectious seeding (joints, eyes, spine, lungs, SOLE CONDITIONER, psoas, etc)--if suspected, please notify ID right away. 11. Would ideally HOLD chemo at this time given active infectious process. 12. On Zosyn/vanco, please monitor CBC w/dif, CMP carefully in the hospital given low blood counts and elevated LFTs ID will continue to follow please page us with questions-thanks! Radames Hedrick MD, REPLACED BY [facility] Division of Infectious Disease
--- NOTE | 2023-05-03 11:45 | XR_ITS ---
Patient: MILAGROS RAIN Facility:?[facility] Patient ID:?[id number] Site Patient ID:?[id number]. Site :?[id number] Study:?XRay-Hip Right -05/03/2023 12:47:20 PM Ordering Physician:PAUL Final Report: Indication: Assess for joint effusion Technique: Two views of the right hip were acquired Comparison: There are no prior studies for comparison Findings: Demineralized osseous structures. Degenerative changes of the visualized lower lumbar spine and right sacroiliac joint. There has been a right hip arthroplasty. Alignment is normal. Surrounding osseous structures are normal. No abnormal lucency about the implant. The implant is intact. There appears to be contrast within the bladder. A joint effusion can not be assessed by plain film. Impression: Demineralized osseous structures and degenerative changes. Right hip arthroplasty without visible complication regarding the surrounding osseous structures or the orthopedic instrumentation. Please review the comment regarding joint effusions. There is contrast within the bladder. Dictated by Leland Pozo MD @ 05/03/2023 12:53:22 PM Signed by:?Leland Pozo MD @05/03/2023 12:53:22 PM (Electronic Signature)
[2023-05-03 13:08] VITALS: BP 92/60; PULSE 77; RESP 16; TEMP 36.6; O2SAT 98
--- NOTE | 2023-05-03 14:22 | P.PCN_ITS ---
Procedure Note Date Seen: 05/03/23 Will [facility] bill your pro fee for this procedure?: Yes Pre-op diagnosis: 1. Neutropenia. 2. Port-A-Cath in place. Post-op diagnosis: same Procedure: 1. Right internal jugular Port-A-Cath removal. Procedure Description: Right internal jugular port a cath removal After an informed consent was obtained, patient's skin over the port was prepped and draped in the usual sterile fashion. 1% Lidocaine with Epinephrine was injected around the area of the port. A transverse skin incision was made right over the previous scar and subcutaneous tissues were dissected down to the catheter with scissors. The catheter was then pulled up into the incision and pulled all the way out from the neck. The catheter came out in one piece. No anchoring stitches were identified through the incision. The port was then delivered out of the incision. Surgical field was examined for hemostasis and there was not bleeding. Subcutaneous tissues were re-approximated with 3-0 vicryl interrrupted stitches and skin was closed with a running 4-0 monocryl subcuticular stitch. Steri strips and sterile pressure dressing were applied over the incision. The patient tolerated procedure well. Direct pressure was held over the right internal jugular vein for at least 10 minutes by an assistant chief nursing officer nurse. Anesthesia: local Surgeon: Keke Hyatt MD Estimated blood loss (mL): 1 Pathology: other (Port was sent for tip culture in a sterile jar.) Condition: stable Disposition: no change
[2023-05-03 15:00] VITALS: BP 105/61; PULSE 67; RESP 18; TEMP 36.7; O2SAT 98
--- NOTE | 2023-05-03 16:28 | PM.IMPN1 ---
Progress Note: A&P Assessment and plan (1) Neutropenic fever: Problem details: - source unclear, - likely Port in anterior chest. ddx: endocarditis, abdominal drain, GI translocation, joint infection. - appreciate ID consult and teamwork - GPR growing in initial blood cultures - empiric Zosyn (05/02/23) and Vanc (05/03), follow labs - echo ordered, right hip xrays reviewed, port removed and tip sent to culture - repeat blood cultures after port was removed and vanc infused Status: Acute (2) Pancreatic cancer: Problem details: - follows with [facility], diagnosed 02/2021, recurrence 2023 Status: Acute (3) Orthostatic hypotension: Problem details: - takes Midodrine at home prn (up to 5x/day) Status: Acute Subjective Date Seen: 05/03/23 Interval history: Daily Progress Note - Hospital Medicine Day #: 2 CC: Neutropenic fever, ongoing pancreatic cancer, history of orthostatic hypotension OVERNIGHT UPDATES FROM STAFF & MED, LAB, IMAGING UPDATES -feels improved from presentation. -has not had any fever since arriving on the floor -WBC count is up to 2.77/42.3% neutrophils equals ANC of 1170 -hemoglobin down to 9.8 -sodium 134 -LFTs down-trending -procalcitonin 10.4 -right hip xray Findings: Demineralized osseous structures. Degenerative changes of the visualized lower lumbar spine and right sacroiliac joint. There has been a right hip arthroplasty. Alignment is normal. Surrounding osseous structures are normal. No abnormal lucency about the implant. The implant is intact. There appears to be contrast within the bladder. A joint effusion can not be assessed by plain film. Impression: Demineralized osseous structures and degenerative changes. Right hip arthroplasty without visible complication regarding the surrounding osseous structures or the orthopedic instrumentation. Please review the comment regarding joint effusions. There is contrast within the bladder. -port removed - tubing sent to lab/micro -echo ordered/pending -blood cultures growing GPR Objective: alert. non-septic appearing. Vitals: see above Lungs: Clear. Cardiac: S1S2. anterior chest: port - non-tender right hip: non tender range of motion abdomen: soft. non-tender skin: no abrasions or ulcerations. Disposition/Potential discharge - Likely to return to previous living situation. Today I spent 50minutes seeing the patient, reviewing [facility] and EPIC notes/diagnostics, discussing the care plan with our care time that includes social work, PT/OT, pharmacy, RT, long-term and documenting my impressions and plan in the medical record. Exam Const: Vital Signs, click to edit/add: Vital Signs - 24 hr 05/02/23 17:21 05/02/23 17:22 05/02/23 17:30 Temperature Pulse Rate 83 79 77 Pulse Rate [Pulse Oximeter] Respiratory Rate Blood Pressure 90/54 L Blood Pressure [Le ft Radial Artery] Blood Pressure [Ri ght Arm] Pulse Oximetry 94 95 93 Oxygen Delivery Me thod 05/02/23 17:31 05/02/23 17:45 05/02/23 17:47 Temperature Pulse Rate 80 79 81 Pulse Rate [Pulse Oximeter] Respiratory Rate Blood Pressure 69/39 L 99/59 L Blood Pressure [Le ft Radial Artery] Blood Pressure [Ri ght Arm] Pulse Oximetry 95 92 96 Oxygen Delivery Me thod 05/02/23 18:00 05/02/23 18:01 05/02/23 18:15 Temperature Pulse Rate 77 79 76 Pulse Rate [Pulse Oximeter] Respiratory Rate Blood Pressure 103/58 L Blood Pressure [Le ft Radial Artery] Blood Pressure [Ri ght Arm] Pulse Oximetry 96 95 96 Oxygen Delivery Me thod 05/02/23 18:30 05/02/23 18:32 05/02/23 18:45 Temperature Pulse Rate 80 76 77 Pulse Rate [Pulse Oximeter] Respiratory Rate Blood Pressure 96/57 L Blood Pressure [Le ft Radial Artery] Blood Pressure [Ri ght Arm] Pulse Oximetry 96 95 96 Oxygen Delivery Me thod 05/02/23 19:00 05/02/23 19:01 05/02/23 19:03 Temperature 100.1 F H Pulse Rate 75 78 Pulse Rate [Pulse Oximeter] Respiratory Rate Blood Pressure 83/53 L Blood Pressure [Le ft Radial Artery] Blood Pressure [Ri ght Arm] Pulse Oximetry 95 96 Oxygen Delivery Me thod 05/02/23 19:15 05/02/23 19:30 05/02/23 19:31 Temperature Pulse Rate 74 76 79 Pulse Rate [Pulse Oximeter] Respiratory Rate Blood Pressure 108/61 Blood Pressure [Le ft Radial Artery] Blood Pressure [Ri ght Arm] Pulse Oximetry 96 96 96 Oxygen Delivery Me thod 05/02/23 19:32 05/02/23 19:45 05/02/23 20:00 Temperature Pulse Rate 79 77 76 Pulse Rate [Pulse Oximeter] Respiratory Rate Blood Pressure 104/52 L Blood Pressure [Le ft Radial Artery] Blood Pressure [Ri ght Arm] Pulse Oximetry 94 96 96 Oxygen Delivery Me thod 05/02/23 20:02 05/02/23 20:15 05/02/23 20:30 Temperature Pulse Rate 76 69 71 Pulse Rate [Pulse Oximeter] Respiratory Rate Blood Pressure 92/54 L Blood Pressure [Le ft Radial Artery] Blood Pressure [Ri ght Arm] Pulse Oximetry 95 95 96 Oxygen Delivery Me thod 05/02/23 20:32 05/02/23 20:45 05/02/23 21:00 Temperature Pulse Rate 72 65 65 Pulse Rate [Pulse Oximeter] Respiratory Rate Blood Pressure 85/56 L Blood Pressure [Le ft Radial Artery] Blood Pressure [Ri ght Arm] Pulse Oximetry 96 96 96 Oxygen Delivery Me thod 05/02/23 21:02 05/02/23 21:15 05/02/23 21:30 Temperature Pulse Rate 63 69 64 Pulse Rate [Pulse Oximeter] Respiratory Rate Blood Pressure 101/65 Blood Pressure [Le ft Radial Artery] Blood Pressure [Ri ght Arm] Pulse Oximetry 98 99 95 Oxygen Delivery Me thod 05/02/23 21:31 05/02/23 21:45 05/02/23 23:47 Temperature 98 F Pulse Rate 64 67 Pulse Rate [Pulse Oximeter] 63 Respiratory Rate 18 Blood Pressure 98/62 Blood Pressure [Le ft Radial Artery] 121/78 Blood Pressure [Ri ght Arm] Pulse Oximetry 95 96 Oxygen Delivery Me thod 05/03/23 03:00 05/03/23 07:00 05/03/23 07:00 Temperature 98.1 F 98.2 F Pulse Rate Pulse Rate [Pulse Oximeter] 63 78 Respiratory Rate 18 19 18 Blood Pressure Blood Pressure [Le ft Radial Artery] 115/64 Blood Pressure [Ri ght Arm] 100/68 Pulse Oximetry 94 95 95 Oxygen Delivery Me thod Room Air Room Air Room Air 05/03/23 13:08 05/03/23 15:00 05/03/23 15:00 Temperature 97.8 F 98.1 F Pulse Rate Pulse Rate [Pulse Oximeter] 77 67 Respiratory Rate 16 18 18 Blood Pressure Blood Pressure [Le ft Radial Artery] Blood Pressure [Ri ght Arm] 92/60 105/61 Pulse Oximetry 98 98 98 Oxygen Delivery Me thod Room Air Room Air Room Air Labs Labs: Laboratory Results - last 24 hr 05/02/23 05/02/23 05/02/23 16:14 16:15 16:42 WBC 1.64 L* RBC 3.03 L Hgb 10.7 L Hct 31.0 L MCV 102 H MCH 35 H MCHC 35 RDW Coeff of Fidelina 12.9 Plt Count 144 Neut % (Auto) 47.6 Lymph % (Auto) 18.3 L [place] % (Auto) 31.7 H Eos % (Auto) 0.6 Baso % (Auto) 1.2 Neut # (Auto) 0.80 L Lymph # (Auto) 0.30 L [place] # (Auto) 0.50 Eos # (Auto) 0.00 Baso # (Auto) 0.00 Abs Immat Gran (auto) 0.00 Imm/Tot Granulo (auto) 0.6 Diff Slide Review Acceptable Review Sodium 133 L Potassium 3.7 Chloride 102 Carbon Dioxide 23 Anion Gap 8 BUN 18 Creatinine 0.7 Estimated Creat Clear 70.07 Estimated GFR 97 Glucose 135 H Lactate 1.4 Calcium 8.6 Total Bilirubin 1.5 Direct Bilirubin 0.6 H AST 195 H ALT 171 H Alkaline Phosphatase 518 H Total Protein 6.7 Albumin 3.1 L Procalcitonin Urine Color Eduarda A Urine Appearance Clear Urine pH 7.0 Ur Specific [place] 1.020 Urine Protein Negative Urine Glucose (UA) Negative Urine Ketones Negative Urine Blood Negative Urine Nitrite Negative Urine Bilirubin 1+ A Urine Urobilinogen 2.0 A Ur Leukocyte Esterase Negative Urine RBC 0-2 Urine WBC 0-2 Ur Squamous Epith Cells None Urine Bacteria None SARS-CoV-2 (PCR) Negative SARS-CoV-2 Influenza Type A (PCR) Negative PCR FLU A Influenza Type B (PCR) Negative PCR FLU B RSV (PCR) Negative PCR RSV Lab Acknowledgement 05/03/23 05/03/23 06:30 10:00 WBC 2.77 L RBC 2.78 L Hgb 9.8 L Hct 28.8 L MCV 104 H MCH 35 H MCHC 34 RDW Coeff of Fidelina 13.0 Plt Count 143 Neut % (Auto) 42.3 Lymph % (Auto) 26.0 [place] % (Auto) 26.0 H Eos % (Auto) 3.6 Baso % (Auto) 1.4 Neut # (Auto) 1.20 L Lymph # (Auto) 0.70 L [place] # (Auto) 0.70 Eos # (Auto) 0.10 Baso # (Auto) 0.00 Abs Immat Gran (auto) 0.00 Imm/Tot Granulo (auto) 0.7 Diff Slide Review Sodium 134 L Potassium 3.9 Chloride 105 Carbon Dioxide 24 Anion Gap 5 L BUN 18 Creatinine 0.7 Estimated Creat Clear 70.07 Estimated GFR 97 Glucose 102 Lactate Calcium 8.5 Total Bilirubin 1.5 Direct Bilirubin AST 122 H ALT 129 H Alkaline Phosphatase 404 H Total Protein 6.0 Albumin 2.7 L Procalcitonin 10.40 H Urine Color Urine Appearance Urine pH Ur Specific [place] Urine Protein Urine Glucose (UA) Urine Ketones Urine Blood Urine Nitrite Urine Bilirubin Urine Urobilinogen Ur Leukocyte Esterase Urine RBC Urine WBC Ur Squamous Epith Cells Urine Bacteria SARS-CoV-2 (PCR) Influenza Type A (PCR) Influenza Type B (PCR) RSV (PCR) Lab Acknowledgement Test Added
[2023-05-03 17:29] LABS: Gamma Glutamyl Transpeptidase* 258 U/L (8-55)
[2023-05-03 17:33] LABS: C Reactive Protein* 7.8 mg/dL (0.5-1.0)
[2023-05-03] MEDS: Lipase-Protease-Amylase [Creon] 36,000-114,000- 180,000 unit cap 3 EACH PO (17:33)
[2023-05-03] MEDS: MAGNESIUM OXIDE 400 MG TABLET PO (17:35)
[2023-05-03 19:00] VITALS: BP 89/54; PULSE 77; RESP 18; TEMP 36.3; O2SAT 98
--- NOTE | 2023-05-03 20:04 | PC.NURSE ---
Patient pleasant, alert and oriented. Independent with transfers and ambulation. Tolerating regular diet. Dr Hyatt removed port to right chest. New IV placed. Patient tolerated well. Denied pain this shift.?
[2023-05-03] MEDS: TRAZODONE HCL 50 MG TABLET PO (21:07)
[2023-05-03] MEDS: GABAPENTIN 100 MG CAPSULE 200 MG PO (21:07)
[2023-05-03] MEDS: ENOXAPARIN 30 MG/0.3ML INJ SUBCUT (21:08)
[2023-05-03 23:00] VITALS: BP 131/68; PULSE 66; RESP 18; TEMP 36.9; O2SAT 97
[2023-05-03] MEDS: ACETAMINOPHEN 325 MG TABLET 975 MG PO (23:16)
[2023-05-04 03:00] VITALS: BP 87/52; PULSE 66; RESP 18; TEMP 36.3; O2SAT 97
[2023-05-04] MEDS: PIPERACILLIN/TAZOBACTAM 3.375 GM in 0.9 % SODIUM CHLORIDE Mini-bag 100 ML IVPB ×4 (04:28→22:53)
[2023-05-04] MEDS: OMEPRAZOLE 20 MG CAPSULE DR 40 MG PO (06:09)
--- NOTE | 2023-05-04 06:35 | PC.NURSE ---
End of shift [id number]: Pt A&O and afebrile. VSS with exception to low BP which patient reports is his baseline (80s/50s). Pt is independent in his room. Denies having pain but reports being ?uncomfortable? stating his port removal site is tender, his lower back is uncomfortable and he just ?feels achy?. PRN Tylenol given x1 dose @ 2315. Pt was awake for most of the night with insomnia. He fell asleep around 0200 and got a few hours of sleep. Right neck/chest dressing C/D/I. ANGELICA patient?s right pancreatic drain. PIV in right FA SL and C/D/I. IV Vanco q12H and IV Zosyn q6H per MAY.?
[2023-05-04 06:40] LABS: HCO3 VBG 26 mmol/L (21-28); PCO2 VBG 42 mmHG (40-50); PO2 VBG 34.9 mmHG (25-47); pH VBG 7.407 (7.32-7.43)
[2023-05-04 06:41] LABS: Basophils Percent Auto 1.6 % (0.0-3.0); Eosinophils Percent Auto 3.3 % (0.0-7.0); Hematocrit 27.9 % (37.0-53.0); Hemoglobin* 9.5 gm/dL (13.5-17.5); Immature Granulocytes Pct Auto 1.2 %; Lactate* 0.9 mmol/L (0.5-1.9); Lymphocytes Percent Auto 35.4 % (20-44); Mean Corpuscular HGB Conc 34 gm/dL (32-36); Mean Corpuscular Hemoglobin 35 pg (26-34); Mean Corpuscular Volume 104 fL (80-100); Monocytes Percent Auto 22.2 % (0.0-11.0); Neutrophils Percent Auto 36.3 % (42.0-72.0); Platelet Count* 143 K/uL (140-440); RDW Coefficient of Variation % 13.3 % (11.5-15.5); Red Blood Count 2.68 m/uL (4.30-5.90); White Blood Count* 2.43 K/uL (4.50-11.00)
[2023-05-04 06:47] LABS: Slide Review Reflex No
[2023-05-04 07:22] LABS: INR 1.15 (0.91-1.10); Prothrombin Time 15.5 Seconds
[2023-05-04 07:25] LABS: Albumin* 2.6 g/dL (3.3-5.0); Chloride* 107 mmol/L (96-114)
[2023-05-04 07:26] LABS: Potassium* 3.7 mmol/L (3.6-5.1); Sodium* 135 mmol/L (135-149)
[2023-05-04 07:28] LABS: Creatinine* 0.8 mg/dL (0.5-1.5); Est. Creatinine Clearance* 70.07; Estimated Glomerular Filt Rate 93 ml/min
[2023-05-04 07:29] LABS: Alkaline Phosphatase* 358 U/L (40-150); Anion Gap 5 mEq/L (7-15); Aspartate Amino Transferase* 96 U/L (12-35); Bilirubin Direct* 0.5 mg/dL (0.0-0.5); Bilirubin Total* 0.9 mg/dL (0.1-1.5); Blood Urea Nitrogen* 20 mg/dL (7-30); Carbon Dioxide* 23 mmol/L (20-32); Gamma Glutamyl Transpeptidase* 235 U/L (8-55); Glucose* 95 mg/dL (60-115); Lipase* 20 U/L (23-300); Total Protein* 5.9 g/dL (6.0-8.3)
[2023-05-04 07:30] LABS: Alanine Aminotransferase* 108 U/L (4-50); Calcium* 8.3 mg/dL (8.4-10.6)
[2023-05-04 07:32] LABS: C Reactive Protein* 6.3 mg/dL (0.5-1.0)
[2023-05-04 07:45] LABS: Procalcitonin* 7.69 ng/mL (<0.50)
[2023-05-04 07:59] VITALS: BP 98/69; PULSE 75; RESP 14; TEMP 36.5; O2SAT 96
[2023-05-04] MEDS: ASPIRIN 81 MG TABLET EC PO (08:26)
[2023-05-04] MEDS: Lipase-Protease-Amylase [Creon] 36,000-114,000- 180,000 unit cap 3 EACH PO ×3 (08:26→17:55)
[2023-05-04] MEDS: SODIUM CHLORIDE 0.9 % (FLUSH) 10 ML SYRINGE 5 ML IVF ×2 (08:52→20:51)
[2023-05-04] MEDS: SENNOSIDES 1 TAB TABLET PO (08:52)
--- NOTE | 2023-05-04 09:12 | W.PM.IDPRG ---
Visit Information Visit Information Visit Information: Patient was not seen. Subjective Subjective Subjective: This patient recommendation is based on a telemedicine consult request which was completed asynchronously through chart review and information provided by the primary physician. The patient was not seen or examined today. The evaluation is consultative in nature and all patient care and treatment decisions can either be accepted or rejected by the patient's primary hospital-based treating physician using their own independent medical judgment for their patient. No fevers, VSS. WBC count remains stably low, at 2.43 with ANC of 0.9 today. Hb stably low as well at 9.5, platelets remain WNL. Cr 0.8. LFTs continue to downtrend. RIJ removed yesterday, cx of catheter tip NGTD. 05/02 GPRs now confirmed to be growing from anaerobic bottles only in each set; identification pending, and 05/03 blood cx x 2 pending as well. R MARY X-ray showed no clear signs of infection. Continues on Zosyn/vanco pending GPR identification and sensi data. Home Medications and Allergies Home Medications and Allergies Inpatient Medications: Active Medications Generic Name Dose Route Start Last Admin Trade Name Freq PRN Reason Stop Dose Admin Acetaminophen 975 mg 05/02/23 23:20 05/03/23 23:16 Acetaminophen 325 Mg Tablet PO 975 mg Q6H PRN Administration Aspirin 81 mg 05/04/23 09:00 05/04/23 08:26 Aspirin 81 Mg Tablet Ec PO 81 mg DAILY MIKE Administration Colchicine 0.6 mg 05/03/23 11:43 Colchicine 0.6 Mg Capsule PO DAILY PRN Enoxaparin Sodium 30 mg 05/03/23 21:00 05/03/23 21:08 Enoxaparin 30 Mg/0.3ml Inj SUBCUT 30 mg HS MIKE Administration Gabapentin 200 mg 05/03/23 21:00 05/03/23 21:07 Gabapentin 100 Mg Capsule PO 200 mg HS MIKE Administration Heparin Sodium (Porcine) 500 unit 05/03/23 10:35 05/03/23 10:41 Heparin 500 Unit/5 Ml Syringe IVF 500 unit FLUSHPRN PRN Administration Piperacillin Sod/Tazobactam 100 mls @ 200 mls/hr 05/03/23 01:30 05/04/23 05:12 Sod 3.375 gm/ Sodium Chloride IVPB Infused Q6H MIKE Infusion Vancomycin HCl 1,500 mg/ 515 mls @ 343.333 mls/hr 05/04/23 00:00 05/04/23 02:15 Sodium Chloride IVPB Infused Q12H MIKE Infusion Lidocaine 1 patch 05/03/23 11:45 Lidocaine 5% Patch TRANSDERMA Q24H PRN Protocol Magnesium Oxide 400 mg 05/03/23 21:00 05/04/23 08:27 Magnesium Oxide 400 Mg Tablet PO Not Given BID MIKE Melatonin 6 mg 05/02/23 23:20 Melatonin 3 Mg Tablet PO HS PRN Melatonin 3 mg 05/03/23 21:00 05/03/23 21:08 Melatonin 3 Mg Tablet PO Not Given HS MIKE Metoclopramide HCl 10 mg 05/03/23 11:43 Metoclopramide 10 Mg Tablet PO Q6H PRN Lipase-Protease- 3 cap 05/03/23 12:00 05/04/23 08:26 Amylase [Creon] 36, PO 3 cap 000-114,000- 180,000 TIDWM MIKE Administration Unit Cap Midodrine 10 Mg 20 mg 05/03/23 21:00 05/04/23 08:27 Tablet PO 20 mg BID MIKE Administration Midodrine 10 Mg 10 mg 05/03/23 13:00 05/03/23 12:57 Tablet PO 10 mg DAILY@1200 MIKE Administration Omeprazole 40 mg 05/04/23 07:00 05/04/23 06:09 [address]eprazole [address] PO 40 mg DAILY@0700 MIKE Administration Polyethylene Glycol 17 gm 05/03/23 11:43 Polyethylene Glycol 3350 17 Gm Pack PO DAILY PRN Prochlorperazine 10 mg 05/03/23 11:43 Prochlorperazine 10 Mg Tablet PO Q6H PRN nausea Sennosides 1 tab 05/04/23 09:00 05/04/23 08:52 Sennosides 1 Tab Tablet PO 1 tab DAILY MIKE Administration Sodium Chloride 5 ml 05/02/23 23:20 05/03/23 10:41 Sodium Chloride 0.9 % (Flush) 10 Ml Syringe IVF 5 ml .FLUSH PRN Administration Sodium Chloride 5 ml 05/03/23 09:00 05/04/23 08:52 Sodium Chloride 0.9 % (Flush) 10 Ml Syringe IVF 5 ml BID MIKE Administration Trazodone HCl 50 mg 05/03/23 11:43 05/03/23 21:07 Trazodone Hcl 50 Mg Tablet PO 50 mg HS PRN Administration Discontinued Medications Generic Name Dose Route Start Last Admin Trade Name Valdez PRN Reason Stop Dose Admin Acetaminophen 650 mg 05/02/23 18:36 05/02/23 19:03 Acetaminophen 325 Mg Tablet PO 05/02/23 18:37 650 mg ONCE ONE Administration Acetaminophen Confirm 05/02/23 18:57 Acetaminophen 325 Mg Tablet Administered 05/02/23 18:58 Dose 650 mg .ROUTE .STK-MED ONE Sodium Chloride 1,000 mls @ 1,000 mls/hr 05/02/23 16:15 05/02/23 18:20 0.9 % Sodium Chloride 1000 Ml IV 05/02/23 17:14 Infused .Q1H MIKE Infusion Lactated Ringer's 1,000 mls @ 1,000 mls/hr 05/02/23 18:18 05/02/23 21:15 Lactated Ringers 1000 Ml IV 05/02/23 19:17 Infused .Q1H ONE Infusion Piperacillin Sod/Tazobactam 100 mls @ 200 mls/hr 05/02/23 18:18 05/02/23 21:16 Sod 3.375 gm/ Sodium Chloride IVPB 05/02/23 18:19 Infused ONCE ONE Infusion Vancomycin HCl 1,750 mg/ 517.5 mls @ 258.75 mls/hr 05/03/23 11:30 05/03/23 19:55 Sodium Chloride IVPB 05/03/23 13:29 Infused ONCE ONE Infusion Protocol Lidocaine/Epinephrine 20 ml 05/03/23 13:26 05/03/23 15:00 Lidocaine 1%-Epi 1:100,000 20 Ml INFILTRATI 05/03/23 13:27 20 ml ONCE ONE Administration Piperacillin Sod/Tazobactam Sod Confirm 05/02/23 18:21 Piperacillin/Tazobactam 3.375 Gm Inj Administered 05/02/23 18:22 Dose 3.375 gm .ROUTE .STK-MED ONE Allergies Allergy/AdvReac Type Severity Reaction Status Date / Time No Known Drug Allergies Allergy Verified 05/02/23 15:45 Objective - Infectious Disease Objective Vital Signs: Vital Signs - 24 hr 05/03/23 13:08 05/03/23 15:00 05/03/23 15:00 Temperature 97.8 F 98.1 F Pulse Rate [Pulse Oximeter] 77 67 Respiratory Rate 16 18 18 Blood Pressure [Left Arm] Blood Pressure [Right Arm] 92/60 105/61 Pulse Oximetry 98 98 98 Oxygen Delivery Method Room Air Room Air Room Air 05/03/23 19:00 05/03/23 23:00 05/03/23 23:00 Temperature 97.3 F L 98.4 F Pulse Rate [Pulse Oximeter] 77 66 66 Respiratory Rate 18 18 18 Blood Pressure [Left Arm] 131/68 Blood Pressure [Right Arm] 89/54 L Pulse Oximetry 98 97 Oxygen Delivery Method Room Air Room Air 05/03/23 23:00 05/04/23 03:00 05/04/23 07:59 Temperature 97.3 F L 97.7 F Pulse Rate [Pulse Oximeter] 66 75 Respiratory Rate 18 18 14 Blood Pressure [Left Arm] 87/52 L Blood Pressure [Right Arm] 98/69 Pulse Oximetry 97 97 96 Oxygen Delivery Method Room Air Room Air Room Air Narrative: Patient was not seen or examined. Results - Infectious Disease Results Labs: 05/03/23 14:37 Abscess - Other Body Fluid Culture - Preliminary No growth. 05/02/23 16:59 Blood Blood Culture - Preliminary Gram positive soumya 05/02/23 16:42 Blood Blood Culture - Preliminary Gram positive soumya 05/04/23 06:20 Blood Blood Culture - Pending 05/04/23 06:13 Blood Blood Culture - Pending 05/03/23 18:45 Nasal - Nasal MRSA Screen - Pending 05/03/23 14:52 Blood Blood Culture - Pending 05/03/23 15:00 Blood Blood Culture - Pending Laboratory Tests 05/04/23 05/03/23 05/03/23 Range/Units 06:13 10:00 06:30 WBC 2.43 L 2.77 L (4.50-11.00) K/uL RBC 2.68 L 2.78 L (4.30-5.90) m/uL Hgb 9.5 L 9.8 L (13.5-17.5) gm/dL Hct 27.9 L 28.8 L (37.0-53.0) % MCV 104 H 104 H (80-100) fL MCH 35 H 35 H (26-34) pg MCHC 34 34 (32-36) gm/dL RDW Coeff of Fidelina 13.3 13.0 (11.5-15.5) % Plt Count 143 143 (140-440) K/uL Neut % (Auto) 36.3 L 42.3 (42.0-72.0) % Lymph % (Auto) 35.4 26.0 (20-44) % [place] % (Auto) 22.2 H 26.0 H (0.0-11.0) % Eos % (Auto) 3.3 3.6 (0.0-7.0) % Baso % (Auto) 1.6 1.4 (0.0-3.0) % Neut # (Auto) 0.90 L 1.20 L (1.7-7.0) K/uL Lymph # (Auto) 0.90 0.70 L (0.90-2.90) K/uL [place] # (Auto) 0.50 0.70 (0.00-0.90) K/UL Eos # (Auto) 0.10 0.10 (0.00-0.50) K/uL Baso # (Auto) 0.00 0.00 (0.00-0.30) K/uL Abs Immat Gran (auto) 0.00 0.00 (0.00-0.30) K/uL Imm/Tot Granulo (auto) 1.2 0.7 % Diff Slide Review (Acceptable) INR 1.15 H (0.91-1.10) VBG pH 7.407 (7.32-7.43) VBG pCO2 42 (40-50) mmHG VBG pO2 34.9 (25-47) mmHG VBG HCO3 26 (21-28) mmol/L Sodium 135 134 L (135-149) mmol/L Potassium 3.7 3.9 (3.6-5.1) mmol/L Chloride 107 105 (96-114) mmol/L Carbon Dioxide 23 24 (20-32) mmol/L Anion Gap 5 L 5 L (7-15) mEq/L BUN 20 18 (7-30) mg/dL Creatinine 0.8 0.7 (0.5-1.5) mg/dL Estimated Creat Clear 70.07 70.07 Estimated GFR 93 97 ml/min Glucose 95 102 (60-115) mg/dL Lactate 0.9 (0.5-1.9) mmol/L Calcium 8.3 L 8.5 (8.4-10.6) mg/dL Phosphorus 4.0 (2.5-4.5) mg/dL Total Bilirubin 0.9 1.5 (0.1-1.5) mg/dL Direct Bilirubin 0.5 (0.0-0.5) mg/dL GGT 235 H 258 H (8-55) U/L AST 96 H 122 H (12-35) U/L ALT 108 H 129 H (4-50) U/L Alkaline Phosphatase 358 H 404 H (40-150) U/L C-Reactive Protein 6.3 H 7.8 H (0.5-1.0) mg/dL Total Protein 5.9 L 6.0 (6.0-8.3) g/dL Albumin 2.6 L 2.7 L (3.3-5.0) g/dL Lipase 20 L (23-300) U/L Procalcitonin 7.69 H 10.40 H (<0.50) ng/mL Urine Color (Yellow) Urine Appearance (Clear) Urine pH (5.0-8.5) Ur Specific [place] (1.000-1.030) Urine Protein (Negative) Urine Glucose (UA) (Negative) Urine Ketones (Negative) Urine Blood (Negative) Urine Nitrite (Negative) Urine Bilirubin (Negative) Urine Urobilinogen (0.2-1.0) Ur Leukocyte Esterase (Negative) Urine RBC (0-2) Urine WBC (0-5) Ur Squamous Epith Cells (None-Few) Urine Bacteria (None) SARS-CoV-2 (PCR) (Negative) Influenza Type A (PCR) (Negative) Influenza Type B (PCR) (Negative) RSV (PCR) (Negative) Lab Acknowledgement Test Added Test Added 05/02/23 05/02/23 05/02/23 Range/Units 16:42 16:15 16:14 WBC 1.64 L* (4.50-11.00) K/uL RBC 3.03 L (4.30-5.90) m/uL Hgb 10.7 L (13.5-17.5) gm/dL Hct 31.0 L (37.0-53.0) % MCV 102 H (80-100) fL MCH 35 H (26-34) pg MCHC 35 (32-36) gm/dL RDW Coeff of Fidelina 12.9 (11.5-15.5) % Plt Count 144 (140-440) K/uL Neut % (Auto) 47.6 (42.0-72.0) % Lymph % (Auto) 18.3 L (20-44) % [place] % (Auto) 31.7 H (0.0-11.0) % Eos % (Auto) 0.6 (0.0-7.0) % Baso % (Auto) 1.2 (0.0-3.0) % Neut # (Auto) 0.80 L (1.7-7.0) K/uL Lymph # (Auto) 0.30 L (0.90-2.90) K/uL [place] # (Auto) 0.50 (0.00-0.90) K/UL Eos # (Auto) 0.00 (0.00-0.50) K/uL Baso # (Auto) 0.00 (0.00-0.30) K/uL Abs Immat Gran (auto) 0.00 (0.00-0.30) K/uL Imm/Tot Granulo (auto) 0.6 % Diff Slide Review Acceptable Review (Acceptable) INR (0.91-1.10) VBG pH (7.32-7.43) VBG pCO2 (40-50) mmHG VBG pO2 (25-47) mmHG VBG HCO3 (21-28) mmol/L Sodium 133 L (135-149) mmol/L Potassium 3.7 (3.6-5.1) mmol/L Chloride 102 (96-114) mmol/L Carbon Dioxide 23 (20-32) mmol/L Anion Gap 8 (7-15) mEq/L BUN 18 (7-30) mg/dL Creatinine 0.7 (0.5-1.5) mg/dL Estimated Creat Clear 70.07 Estimated GFR 97 ml/min Glucose 135 H (60-115) mg/dL Lactate 1.4 (0.5-1.9) mmol/L Calcium 8.6 (8.4-10.6) mg/dL Phosphorus (2.5-4.5) mg/dL Total Bilirubin 1.5 (0.1-1.5) mg/dL Direct Bilirubin 0.6 H (0.0-0.5) mg/dL GGT (8-55) U/L AST 195 H (12-35) U/L ALT 171 H (4-50) U/L Alkaline Phosphatase 518 H (40-150) U/L C-Reactive Protein (0.5-1.0) mg/dL Total Protein 6.7 (6.0-8.3) g/dL Albumin 3.1 L (3.3-5.0) g/dL Lipase (23-300) U/L Procalcitonin (<0.50) ng/mL Urine Color Eduarda A (Yellow) Urine Appearance Clear (Clear) Urine pH 7.0 (5.0-8.5) Ur Specific [place] 1.020 (1.000-1.030) Urine Protein Negative (Negative) Urine Glucose (UA) Negative (Negative) Urine Ketones Negative (Negative) Urine Blood Negative (Negative) Urine Nitrite Negative (Negative) Urine Bilirubin 1+ A (Negative) Urine Urobilinogen 2.0 A (0.2-1.0) Ur Leukocyte Esterase Negative (Negative) Urine RBC 0-2 (0-2) Urine WBC 0-2 (0-5) Ur Squamous Epith Cells None (None-Few) Urine Bacteria None (None) SARS-CoV-2 (PCR) Negative SARS-CoV-2 (Negative) Influenza Type A (PCR) Negative PCR FLU A (Negative) Influenza Type B (PCR) Negative PCR FLU B (Negative) RSV (PCR) Negative PCR RSV (Negative) Lab Acknowledgement Assessment and Plan Assessment and Plan Assessment and Plan: 73yoM with hx of orthostatic hypotension, gout, DJD s/p R MARY and pancreatic cancer diagnosed in 02/2021 s/p Whipple procedure in 03/2021 with PTC placement for biliary drainage. He had ongoing metastatic disease, and was recently placed on Abraxane and gemictabine ~1 week ago (given via R sided port), with plans to continue therapy for 4 months tentatively per notes. He presented to [facility] on 05/02/23 with complaints of fevers up to 101 F at home occuring for the prior 24 hours, with associated myagias. He had no cough, reported CP or SOB, no N/V/D, no sx's and no clear sick contacts per review of notes. Here, he had a low grade temp of 100.1 F, with associated hypotension. WBC count was low at 1.64, with an ANC of 0.8, Hb was 10.7 and LFTs were notable for an AST of 195, ALT of 171 and alk phos of 518, all up. UA was neg for LE/nitrite. COVID/Flu/RSV testing were all neg. CXR showed some mild central bronchial thickening without any clear dense consolidations seen, along with presence of his R chest port. CT C/A/P was then done, which postop changes from his Whipple, along with mild haziness in the LUQ proximal SB loops, c/f possible enteritis. In addition, some mild biliary ductal dilation was noted in the setting of his PTC being in place. Some new lung nodules were seen in the setting of his prior known lung mets, some measuring up to 1 cm in size. An indeterminate L hepatic lobe lesion was also seen, along with some unchanged mesenteric lymphadenopathy. He was admitted for suspected neutropenic fever, blood cx x 2 were obtained, and the patient was placed on empiric Zosyn. In the interim, blood cx from 05/02 returned positive for GPR in 2/2 sets. Given this, ID was consulted on 05/03/23 to help assist in further management. Patient had neutropenia with reported fevers at home and a Tmax here of 100.1 F thus far, raising c/f neutropenic fever. He now has high grade GPR bacteremia in 2/2 blood cx sets from 05/02; these are now confirmed growing from anaerobic bottles only. Possible sources of GPR in blood include biliary translocation given ductal dilation noted on CT imaging and elevated LFTs on admission (now improving). Alternatively, GI translocation from possible enteritis is possible as well, given CT imaging findings. The patient has a R MARY, X-ray of MARY site shows no obvious c/f infection, but if patient has any hip or groin/RLE pain present, would still consult Ortho for input. CLABSI was also a concern, given port is in place--this was removed on 05/03 in setting of bacteremia, tip cx is pending, and repeat 05/03 blood cx are pending. PNA seems unlikely, as does source of infection--however, in setting of neutropenia, if Ucx is positive, would still treat in this particular setting. Ok to continue Zosyn for now given neutropenic status, and continue IV vancomycin pending GPR identification and sensi data.Now that port is removed, we will f/u on tip cx and would repeat blood cx daily until we have 2 sets neg x 48 hours--until then, no prison lines should be placed . Given port does go towards RA of heart, would be reasonable to obtain TTE to ensure no endovascular seeding is present, although this would be less likely with a GPR in general. If diarrhea is present, would obtain stool cx, stool O+P, fecal leukocytes, and C.dif testing to workup for colitis/enteritis. If abdominal pain does present itself or LFTs begin to rise again, would touch base with IR to see if PTC needs to be repositioned or upsized for better drainage. Otherwise, based on GPR identification, sensi data and results of above, we will determine next steps. Please monitor for any signs of infectious seeding (joints, eyes, spine, lungs, ANTISQUEAK CHALKER, psoas, etc)--if suspected, please notify ID right away. Would ideally HOLD chemo at this time given active infectious process. RECOMMENDATIONS: 1. For now, continue Zosyn 3.375g IV Q6H (CrCl>60) for empiric GI/skin charanjit coverage as well as coverage for neutropenic fever 2. Until GPR identification and sensi data is back, would continue IV vancomycin (Pharmacy to manage dosing/levels) 3. Will f/u on 05/03 port tip cx (NGTD) 4. Now that port is removed, please repeat blood cx daily until we have 2 sets neg x 72 hours(given isolate is anaerobic)--until then, no adjunct faculty for medical terminology lines should be placed 5. Would obtain TTE given above points (high grade GPR bacteremia, immunosuppression, port in RA area) 6. MARY X-ray is neg, however if patient has R MARY site pain/R groin/RLE pain, then would consult Orthopedics for aspiration of R MARY site--if done, please send cell count w/dif, Gram stain, bacterial (aer/anaerobic) cx, fungal stains/cx and crystals, to complete ID workup 7. If diarrhea is noted, would obtain stool cx, stool O+P, fecal leukocytes, and C.dif testing to workup for colitis/enteritis, given CT A/P findings raised c/f enteritis. 8. If abdominal pain does present itself or LFTs begin to rise again, would touch base with IR to see if PTC needs to be repositioned or upsized for better drainage. 9. Otherwise, based on GPR identification, sensi data and results of above, we will determine next steps. 10. Please continue to monitor for any signs of infectious seeding (joints, eyes, spine, lungs, ANTISQUEAK CHALKER, psoas, etc)--if suspected, please notify ID right away. 11. Would ideally continue to HOLD chemo at this time given active infectious process. 12. On Zosyn/vanco, please monitor CBC w/dif, CMP carefully in the hospital given low blood counts and elevated LFTs ID will continue to follow please page us with questions-thanks! Radames Hedrick MD, [facility] Division of Infectious Disease
[2023-05-04 11:00] VITALS: BP 90/50; PULSE 63; RESP 16; TEMP 36.4; O2SAT 97
--- NOTE | 2023-05-04 13:31 | P.IMPN_ITS ---
Progress Note: A&P Assessment and plan (1) Neutropenic fever: Problem details: - source unclear, - likely Port in anterior chest. ddx: endocarditis, abdominal drain, GI translocation, joint infection. - appreciate ID consult and teamwork - GPR growing in initial blood cultures - awaiting c/s - empiric Zosyn (05/02/23) and Vanc (05/03), follow labs - echo reviewed/reassuring, right hip xrays reviewed/reassuring, port removed and tip sent to culture - repeat blood cultures NGTD Status: Acute (2) Pancreatic cancer: Problem details: - follows with OR Oncology, diagnosed 02/2021, recurrence 2023 Status: Acute (3) Orthostatic hypotension: Problem details: - takes Midodrine at home prn (up to 5x/day) Status: Acute Subjective Date Seen: 05/04/23 Interval history: Daily Progress Note - Hospital Medicine Day #: 3 CC: Neutropenic fever, ongoing pancreatic cancer, history of orthostatic hypotension OVERNIGHT UPDATES FROM STAFF & MED, LAB, IMAGING UPDATES -feels improved from presentation. -has not had any fever since arriving on the floor -WBC count is up to 2.43/36.3% neutrophils equals ANC of 882 -hemoglobin down to 9.8 -sodium 135 -LFTs down-trending -CRP downtrending 7.8 -->6.3 -procalcitonin 10.4 --> 7.69 -port removed - tubing sent to lab/micro -echo completed. reassuring. -blood cultures growing GPR - next two sets NGTD Objective: alert. non-septic appearing. Vitals: see above Lungs: Clear. Cardiac: S1S2. anterior chest: port site covered in steri-strips. nontender. abdomen: soft. non-tender skin: no abrasions or ulcerations. Disposition/Potential discharge - Likely to return to previous living situation. Today I spent 50minutes seeing the patient, reviewing Expanse and EPIC notes/diagnostics, discussing the care plan with our care time that includes social work, PT/OT, pharmacy, RT, [place] [facility] and documenting my impressions and plan in the medical record. Exam Const: Vital Signs, click to edit/add: Vital Signs - 24 hr 05/03/23 15:00 05/03/23 15:00 05/03/23 19:00 Temperature 98.1 F 97.3 F L Pulse Rate [Pulse Oximeter] 67 77 Respiratory Rate 18 18 18 Blood Pressure [Le ft Arm] Blood Pressure [Ri ght Arm] 105/61 89/54 L Pulse Oximetry 98 98 98 Oxygen Delivery Me thod Room Air Room Air Room Air 05/03/23 23:00 05/03/23 23:00 05/03/23 23:00 Temperature 98.4 F Pulse Rate [Pulse Oximeter] 66 66 Respiratory Rate 18 18 18 Blood Pressure [Le ft Arm] 131/68 Blood Pressure [Ri ght Arm] Pulse Oximetry 97 97 Oxygen Delivery Me thod Room Air Room Air 05/04/23 03:00 05/04/23 07:59 05/04/23 07:59 Temperature 97.3 F L 97.7 F Pulse Rate [Pulse Oximeter] 66 75 75 Respiratory Rate 18 14 14 Blood Pressure [Le ft Arm] 87/52 L Blood Pressure [Ri ght Arm] 98/69 Pulse Oximetry 97 96 Oxygen Delivery Oh thod Room Air Room Air 05/04/23 07:59 05/04/23 11:00 Temperature 97.5 F L Pulse Rate [Pulse Oximeter] 63 Respiratory Rate 14 16 Blood Pressure [Le ft Arm] Blood Pressure [Ri ght Arm] 90/50 L Pulse Oximetry 96 97 Oxygen Delivery Me thod Room Air Room Air Labs Labs: Laboratory Results - last 24 hr 05/03/23 05/04/23 06:30 06:13 WBC 2.43 L RBC 2.68 L Hgb 9.5 L Hct 27.9 L MCV 104 H MCH 35 H MCHC 34 RDW Coeff of Fidelina 13.3 Plt Count 143 Neut % (Auto) 36.3 L Lymph % (Auto) 35.4 [place] % (Auto) 22.2 H Eos % (Auto) 3.3 Baso % (Auto) 1.6 Neut # (Auto) 0.90 L Lymph # (Auto) 0.90 [place] # (Auto) 0.50 Eos # (Auto) 0.10 Baso # (Auto) 0.00 Abs Immat Gran (auto) 0.00 Imm/Tot Granulo (auto) 1.2 INR 1.15 H VBG pH 7.407 VBG pCO2 42 VBG pO2 34.9 VBG HCO3 26 Sodium 135 Potassium 3.7 Chloride 107 Carbon Dioxide 23 Anion Gap 5 L BUN 20 Creatinine 0.8 Estimated Creat Clear 70.07 Estimated GFR 93 Glucose 95 Lactate 0.9 Calcium 8.3 L Phosphorus 4.0 Total Bilirubin 0.9 Direct Bilirubin 0.5 GGT 258 H 235 H AST 96 H ALT 108 H Alkaline Phosphatase 358 H C-Reactive Protein 7.8 H 6.3 H Total Protein 5.9 L Albumin 2.6 L Lipase 20 L Procalcitonin 7.69 H Lab Acknowledgement Test Added
[2023-05-04 15:00] VITALS: BP 166/87; PULSE 74; RESP 22; TEMP 36.6; O2SAT 97
[2023-05-04] MEDS: ACETAMINOPHEN 325 MG TABLET 975 MG PO ×2 (15:04→20:49)
[2023-05-04] MEDS: MAGNESIUM OXIDE 400 MG TABLET PO (17:55)
--- NOTE | 2023-05-04 18:15 | PC.NURSE ---
End of Shift: Patient pleasant and cooperative. Patient vitally stable, lungs clear, BS WNL, IV SL and intact. Patient rates back pain 4/10, tylenol given once. Patient independent in room. Patient tolerating regular diet and urinating, no BM this shift. Patient napping on and off in bed, and walked the azar with spouse today,
[2023-05-04 19:00] VITALS: BP 114/81; PULSE 61; RESP 18; TEMP 36.9; O2SAT 97
[2023-05-04] MEDS: ENOXAPARIN 30 MG/0.3ML INJ SUBCUT (20:49)
[2023-05-04] MEDS: TRAZODONE HCL 50 MG TABLET PO (20:49)
[2023-05-04] MEDS: GABAPENTIN 100 MG CAPSULE 200 MG PO (20:50)
[2023-05-04 22:54] VITALS: BP 114/74; PULSE 64; RESP 16; TEMP 36.6; O2SAT 97
[2023-05-05] VITALS (7 sets, daily range): BP systolic 79–134; BP diastolic 50–73; PULSE 60–75; RESP 16–20; TEMP 36.4–36.6; O2SAT 96–99
[2023-05-05] MEDS: PIPERACILLIN/TAZOBACTAM 3.375 GM in 0.9 % SODIUM CHLORIDE Mini-bag 100 ML IVPB ×4 (05:02→22:41)
[2023-05-05] MEDS: SODIUM CHLORIDE 0.9 % (FLUSH) 10 ML SYRINGE 5 ML IVF ×3 (05:03→21:28)
[2023-05-05] MEDS: OMEPRAZOLE 20 MG CAPSULE DR 40 MG PO (06:21)
[2023-05-05 06:34] LABS: Eosinophils Percent Auto 2.8 % (0.0-7.0); Hemoglobin* 9.9 gm/dL (13.5-17.5); Immature Granulocytes Pct Auto 1.7 %; Lymphocytes Percent Auto 38.1 % (20-44); Mean Corpuscular HGB Conc 34 gm/dL (32-36); Mean Corpuscular Hemoglobin 35 pg (26-34); Mean Corpuscular Volume 104 fL (80-100); Monocytes Percent Auto 14.7 % (0.0-11.0); Neutrophils Percent Auto 41.7 % (42.0-72.0); Platelet Count* 179 K/uL (140-440); RDW Coefficient of Variation % 13.4 % (11.5-15.5); White Blood Count* 2.86 K/uL (4.50-11.00)
[2023-05-05 06:36] LABS: Slide Review Reflex No
[2023-05-05 06:37] LABS: Albumin* 2.7 g/dL (3.3-5.0); Chloride* 109 mmol/L (96-114); Sodium* 139 mmol/L (135-149)
[2023-05-05 06:38] LABS: Potassium* 3.6 mmol/L (3.6-5.1)
[2023-05-05 06:40] LABS: Bilirubin Total* 0.9 mg/dL (0.1-1.5); Creatinine* 0.7 mg/dL (0.5-1.5); Est. Creatinine Clearance* 70.07; Estimated Glomerular Filt Rate 97 ml/min
[2023-05-05 06:41] LABS: Alanine Aminotransferase* 101 U/L (4-50); Alkaline Phosphatase* 397 U/L (40-150); Anion Gap 6 mEq/L (7-15); Aspartate Amino Transferase* 88 U/L (12-35); Blood Urea Nitrogen* 15 mg/dL (7-30); Calcium* 8.4 mg/dL (8.4-10.6); Carbon Dioxide* 24 mmol/L (20-32); Gamma Glutamyl Transpeptidase* 269 U/L (8-55); Glucose* 93 mg/dL (60-115); Total Protein* 5.9 g/dL (6.0-8.3)
[2023-05-05 06:43] LABS: C Reactive Protein* 4.8 mg/dL (0.5-1.0)
[2023-05-05 06:56] LABS: Procalcitonin* 4.98 ng/mL (<0.50)
[2023-05-05] MEDS: Lipase-Protease-Amylase [Creon] 36,000-114,000- 180,000 unit cap 3 EACH PO ×3 (07:58→17:39)
[2023-05-05] MEDS: ASPIRIN 81 MG TABLET EC PO (08:00)
[2023-05-05] MEDS: MAGNESIUM OXIDE 400 MG TABLET PO ×2 (08:01→17:39)
[2023-05-05] MEDS: ACETAMINOPHEN 325 MG TABLET 975 MG PO ×2 (08:29→21:22)
[2023-05-05] MEDS: SENNOSIDES 1 TAB TABLET PO (08:29)
--- NOTE | 2023-05-05 10:36 | P.IMPN_ITS ---
Progress Note: A&P Assessment and plan (1) Neutropenic fever: Problem details: - source unclear, - likely Port in anterior chest (removed). ddx: endocarditis (neg echo), abdominal drain (nontender), GI translocation (no diarrhea), joint infection (xray neg and no pain). - appreciate ID consult and teamwork - GPR growing in initial blood cultures - awaiting c/s - empiric Zosyn (05/02/23) and Vanc (05/03), follow labs - echo reviewed/reassuring, right hip xrays reviewed/reassuring, port removed and tip sent to culture - repeat blood cultures NGTD Status: Acute (2) Anaerobic bacteremia: Problem details: gram+ rods in initial cultures awaiting c/s Status: Acute (3) Pancreatic cancer: Problem details: - follows with [facility], diagnosed 02/2021, recurrence 2023 Status: Acute (4) Orthostatic hypotension: Problem details: - takes Midodrine at home prn (up to 5x/day) Status: Acute Subjective Date Seen: 05/05/23 Interval history: Daily Progress Note - Hospital Medicine Day #: 3 CC: Neutropenic fever, ongoing pancreatic cancer, history of orthostatic hypotension OVERNIGHT UPDATES FROM STAFF & MED, LAB, IMAGING UPDATES -feels improved from presentation. -has not had any fever since arriving on the floor -WBC count is up to 2.43/36.3% neutrophils equals ANC of 882 -hemoglobin down to 9.8 -sodium 135 -LFTs down-trending -CRP downtrending 7.8 -->6.3 -procalcitonin 10.4 --> 7.69 -port removed - tubing sent to lab/micro -echo completed. reassuring. -blood cultures growing GPR - next three sets NGTD Objective: alert. non-septic appearing. Vitals: see above Lungs: Clear. Cardiac: S1S2. anterior chest: port site covered in steri-strips. nontender. abdomen: soft. non-tender skin: no abrasions or ulcerations. Disposition/Potential discharge - Likely to return to previous living situation. Today I spent 50minutes seeing the patient, reviewing Expanse and EPIC notes/diagnostics, discussing the care plan with our care time that includes social work, PT/OT, pharmacy, RT, senior living and documenting my impressions and plan in the medical record. Exam Const: Vital Signs, click to edit/add: Vital Signs - 24 hr 05/04/23 11:00 05/04/23 15:00 05/04/23 15:00 Temperature 97.5 F L 97.9 F Pulse Rate [Pulse Oximeter] 63 74 74 Respiratory Rate 16 22 22 Blood Pressure [Ri ght Arm] 90/50 L 166/87 H Pulse Oximetry 97 97 Oxygen Delivery Me thod Room Air Room Air 05/04/23 15:00 05/04/23 19:00 05/04/23 22:54 Temperature 98.5 F 97.9 F Pulse Rate [Pulse Oximeter] 61 64 Respiratory Rate 22 18 16 Blood Pressure [Ri ght Arm] 114/81 114/74 Pulse Oximetry 97 97 97 Oxygen Delivery Me thod Room Air Room Air Room Air 05/05/23 00:05 05/05/23 00:05 05/05/23 04:50 Temperature 97.5 F L Pulse Rate [Pulse Oximeter] 61 Respiratory Rate 16 16 16 Blood Pressure [Ri ght Arm] 115/71 Pulse Oximetry 98 Oxygen Delivery Me thod Room Air Room Air 05/05/23 07:00 05/05/23 07:00 05/05/23 10:13 Temperature 97.5 F L Pulse Rate [Pulse Oximeter] 75 64 Respiratory Rate 17 17 20 Blood Pressure [Ri ght Arm] 79/50 L 109/73 Pulse Oximetry 99 99 99 Oxygen Delivery Me thod Room Air Room Air Room Air Labs Labs: Laboratory Results - last 24 hr 05/05/23 05:54 WBC 2.86 L RBC 2.80 L Hgb 9.9 L Hct 29.0 L MCV 104 H MCH 35 H MCHC 34 RDW Coeff of Fidelina 13.4 Plt Count 179 Neut % (Auto) 41.7 L Lymph % (Auto) 38.1 [place] % (Auto) 14.7 H Eos % (Auto) 2.8 Baso % (Auto) 1.0 Neut # (Auto) 1.20 L Lymph # (Auto) 1.10 [place] # (Auto) 0.40 Eos # (Auto) 0.10 Baso # (Auto) 0.00 Abs Immat Gran (auto) 0.00 Imm/Tot Granulo (auto) 1.7 Sodium 139 Potassium 3.6 Chloride 109 Carbon Dioxide 24 Anion Gap 6 L BUN 15 Creatinine 0.7 Estimated Creat Clear 70.07 Estimated GFR 97 Glucose 93 Calcium 8.4 Total Bilirubin 0.9 GGT 269 H AST 88 H ALT 101 H Alkaline Phosphatase 397 H C-Reactive Protein 4.8 H Total Protein 5.9 L Albumin 2.7 L Procalcitonin 4.98 H
[2023-05-05 14:36] LABS: C.Difficile Negative (Negative); CDIFFEPI 027 PRESUMPTIVE NEGATIVE (Negative)
--- NOTE | 2023-05-05 20:17 | PC.NURSE ---
Patient pleasant, alert and oriented. Independent with transfers and ambulation. Afebrile. Tolerating regular diet. Given PRN Tylenol this morning for pain in his back rated 4/10. at bedside part of shift.
[2023-05-05] MEDS: GABAPENTIN 100 MG CAPSULE 200 MG PO (21:19)
[2023-05-05] MEDS: ENOXAPARIN 30 MG/0.3ML INJ SUBCUT (21:20)
[2023-05-06] VITALS (7 sets, daily range): BP systolic 75–142; BP diastolic 49–77; PULSE 58–87; RESP 16–18; TEMP 36.3–36.6; O2SAT 96–99
[2023-05-06] MEDS: PIPERACILLIN/TAZOBACTAM 3.375 GM in 0.9 % SODIUM CHLORIDE Mini-bag 100 ML IVPB ×4 (05:02→22:50)
[2023-05-06] MEDS: OMEPRAZOLE 20 MG CAPSULE DR 40 MG PO (05:56)
--- NOTE | 2023-05-06 06:45 | PC.NURSE ---
-: pleasant and cooperative. Indep in room. Calls appropriately. Shift unremarkable. pt states he's ready to discharge and get home to his pup, Fely.
[2023-05-06 07:04] LABS: Hematocrit 29.8 % (37.0-53.0); Mean Corpuscular HGB Conc 34 gm/dL (32-36); Mean Corpuscular Hemoglobin 35 pg (26-34); Mean Corpuscular Volume 104 fL (80-100); Platelet Count* 179 K/uL (140-440); Red Blood Count 2.87 m/uL (4.30-5.90); White Blood Count* 3.69 K/uL (4.50-11.00)
[2023-05-06 07:16] LABS: Slide Review Reflex No
[2023-05-06 07:33] LABS: Albumin* 2.8 g/dL (3.3-5.0); Chloride* 110 mmol/L (96-114)
[2023-05-06 07:34] LABS: Potassium* 3.6 mmol/L (3.6-5.1); Sodium* 137 mmol/L (135-149)
[2023-05-06 07:36] LABS: Bilirubin Total* 0.9 mg/dL (0.1-1.5); Creatinine* 0.7 mg/dL (0.5-1.5); Est. Creatinine Clearance* 70.07; Estimated Glomerular Filt Rate 97 ml/min
[2023-05-06 07:37] LABS: Alanine Aminotransferase* 90 U/L (4-50); Alkaline Phosphatase* 383 U/L (40-150); Anion Gap 7 mEq/L (7-15); Aspartate Amino Transferase* 74 U/L (12-35); Blood Urea Nitrogen* 12 mg/dL (7-30); Calcium* 8.2 mg/dL (8.4-10.6); Carbon Dioxide* 20 mmol/L (20-32); Glucose* 97 mg/dL (60-115); Total Protein* 6.1 g/dL (6.0-8.3)
[2023-05-06 07:40] LABS: C Reactive Protein* 3.8 mg/dL (0.5-1.0)
[2023-05-06 07:50] LABS: Procalcitonin* 3.19 ng/mL (<0.50)
[2023-05-06] MEDS: SENNOSIDES 1 TAB TABLET PO (08:12)
[2023-05-06] MEDS: ACETAMINOPHEN 325 MG TABLET 975 MG PO ×3 (08:12→20:35)
[2023-05-06] MEDS: SODIUM CHLORIDE 0.9 % (FLUSH) 10 ML SYRINGE 5 ML IVF ×2 (08:15→20:37)
--- NOTE | 2023-05-06 13:29 | P.IMPN_ITS ---
Progress Note: A&P Assessment and plan (1) Clostridium perfringens infection: Problem details: - bacteremia cleared - no diarrhea; no abdominal pain. PC drain appears normal - awaiting final sensitivities - awaiting call back from ID for final plan Status: Acute (2) Neutropenic fever: Problem details: - source unclear, - likely Port in anterior chest (removed). ddx: endocarditis (neg echo), abdominal drain (nontender), GI translocation (no diarrhea), joint infection (xray neg and no pain). - appreciate ID consult and teamwork - GPR growing in initial blood cultures - awaiting c/s - empiric Zosyn (05/02/23) and Vanc (05/03), follow labs - echo reviewed/reassuring, right hip xrays reviewed/reassuring, port removed and tip sent to culture - repeat blood cultures NGTD Status: Acute (3) Pancreatic cancer: Problem details: - follows with [facility], diagnosed 02/2021, recurrence 2023 Status: Acute (4) Orthostatic hypotension: Problem details: - takes Midodrine at home prn (up to 5x/day) Status: Acute Subjective Date Seen: 05/06/23 Interval history: Daily Progress Note - Hospital Medicine Day #: 4 CC: Neutropenic fever, ongoing pancreatic cancer, history of orthostatic hypotension OVERNIGHT UPDATES FROM STAFF & MED, LAB, IMAGING UPDATES -feels improved from presentation. -has not had any fever since arriving on the floor -WBC count is up to 3.69 -hemoglobin down to 10 -sodium normal -LFTs down-trending -CRP downtrending 7.8 -->6.3 --> 4.8 --> 3.8 -procalcitonin 10.4 --> 7.69 -->4.9 --> 3.19 -port removed - tubing sent to lab/micro -echo completed. reassuring. -blood cultures growing GPR - preliminary appears to be clostridium perfringes. sensitivities have not finalized. - next three sets NGTD Objective: alert. non-septic appearing. Vitals: see above Lungs: Clear. Cardiac: S1S2. anterior chest: port site covered in steri-strips. nontender. abdomen: soft. non-tender - PC drain - no discharge, odor, inflammation. flushes well. skin: no abrasions or ulcerations. Disposition/Potential discharge - Likely to return to previous living situation. Today I spent 50minutes seeing the patient, reviewing Expanse and EPIC notes/diagnostics, discussing the care plan with our care time that includes social work, PT/OT, pharmacy, RT, senior care and documenting my impressions and plan in the medical record. Exam Const: Vital Signs, click to edit/add: Vital Signs - 24 hr 05/05/23 14:35 05/05/23 14:35 05/05/23 19:00 Temperature 97.9 F 98 F Pulse Rate [Pulse Oximeter] 60 75 Respiratory Rate 16 16 16 Blood Pressure [Le ft Arm] Blood Pressure [Ri ght Arm] 111/68 134/73 Pulse Oximetry 99 99 97 Oxygen Delivery Me thod Room Air Room Air Room Air 05/05/23 23:00 05/05/23 23:00 05/05/23 23:00 Temperature 97.6 F Pulse Rate [Pulse Oximeter] 64 Respiratory Rate 16 16 16 Blood Pressure [Le ft Arm] 128/72 Blood Pressure [Ri ght Arm] Pulse Oximetry 96 96 Oxygen Delivery Me thod Room Air Room Air 05/06/23 02:18 Temperature 97.7 F Pulse Rate [Pulse Oximeter] 72 Respiratory Rate 18 Blood Pressure [Le ft Arm] 75/49 L Blood Pressure [Ri ght Arm] Pulse Oximetry 96 Oxygen Delivery Me thod Room Air Labs Labs: Laboratory Results - last 24 hr 05/05/23 05/06/23 12:45 06:25 WBC 3.69 L RBC 2.87 L Hgb 10.0 L Hct 29.8 L MCV 104 H MCH 35 H MCHC 34 Plt Count 179 Sodium 137 Potassium 3.6 Chloride 110 Carbon Dioxide 20 Anion Gap 7 BUN 12 Creatinine 0.7 Estimated Creat Clear 70.07 Estimated GFR 97 Glucose 97 Calcium 8.2 L Total Bilirubin 0.9 AST 74 H ALT 90 H Alkaline Phosphatase 383 H C-Reactive Protein 3.8 H Total Protein 6.1 Albumin 2.8 L Procalcitonin 3.19 H Stl C. diff Tox B Gene Negative Stl C. diff [id number] PRESUMPTIVE NEGATIVE
[2023-05-06] MEDS: ENOXAPARIN 30 MG/0.3ML INJ SUBCUT (20:35)
[2023-05-07 00:51] VITALS: BP 113/101; PULSE 68; RESP 20; TEMP 36.6; O2SAT 96
[2023-05-07] MEDS: PIPERACILLIN/TAZOBACTAM 3.375 GM in 0.9 % SODIUM CHLORIDE Mini-bag 100 ML IVPB ×2 (04:20→10:25)
--- NOTE | 2023-05-07 05:34 | PC.NURSE ---
[id number]: Patient pleasant and cooperative. Tylenol x1 for chronic back pain. Independent. Afebrile. Eating and voiding. Eager to d/c.
[2023-05-07 06:57] LABS: Hematocrit 28.9 % (37.0-53.0); Hemoglobin* 9.7 gm/dL (13.5-17.5); Mean Corpuscular HGB Conc 34 gm/dL (32-36); Mean Corpuscular Hemoglobin 35 pg (26-34); Mean Corpuscular Volume 104 fL (80-100); Platelet Count* 179 K/uL (140-440); Red Blood Count 2.77 m/uL (4.30-5.90); White Blood Count* 3.84 K/uL (4.50-11.00)
[2023-05-07 07:15] LABS: Slide Review Reflex No
[2023-05-07 07:24] LABS: Albumin* 2.5 g/dL (3.3-5.0); Chloride* 109 mmol/L (96-114); Sodium* 138 mmol/L (135-149)
[2023-05-07 07:25] LABS: Potassium* 3.6 mmol/L (3.6-5.1)
[2023-05-07 07:27] LABS: Alkaline Phosphatase* 331 U/L (40-150); Anion Gap 6 mEq/L (7-15); Aspartate Amino Transferase* 65 U/L (12-35); Bilirubin Total* 0.9 mg/dL (0.1-1.5); Blood Urea Nitrogen* 10 mg/dL (7-30); Carbon Dioxide* 23 mmol/L (20-32); Creatinine* 0.8 mg/dL (0.5-1.5); Est. Creatinine Clearance* 70.07; Estimated Glomerular Filt Rate 93 ml/min; Total Protein* 5.6 g/dL (6.0-8.3)
[2023-05-07 07:28] LABS: Alanine Aminotransferase* 76 U/L (4-50); Calcium* 8.2 mg/dL (8.4-10.6); Glucose* 88 mg/dL (60-115)
[2023-05-07 07:30] LABS: C Reactive Protein* 3.3 mg/dL (0.5-1.0)
[2023-05-07 07:35] LABS: Procalcitonin* 1.78 ng/mL (<0.50)
[2023-05-07 07:45] VITALS: BP 82/59; PULSE 90; RESP 18; TEMP 36.5; O2SAT 90
[2023-05-07] MEDS: ACETAMINOPHEN 325 MG TABLET 975 MG PO (08:54)
[2023-05-07] MEDS: SODIUM CHLORIDE 0.9 % (FLUSH) 10 ML SYRINGE 5 ML IVF (08:56)
[2023-05-07] MEDS: DAPTOmycin 50 MG/ML inj 500 MG IVP (11:01)
--- NOTE | 2023-05-07 11:33 | PC.NURSE ---
Discharge. Pt is very pleasant. alert x4. back pain and he got masoud Tylenol. he is eating drinking and voiding. SL is patent. it was covered with a tubi roller skate assembler and flushed before discharge,. he is up ab arian. he is on neutropenic precautions. went over discharge packet with pt and ., went over medication, appointment, instructions and educations. pt went over and signed personal belonging sheet. pt got a w/c ride out with all belongings and paperwork. he will come back tomorrow for IV antibiotic. SL left in
--- NOTE | 2023-05-07 14:41 | P.DS_ITS ---
DS: Providers Provider Date Seen: 05/07/23 Date of admission: 05/02/23 23:20 Primary care physician: Chinedu Hudson MD Admitting Clinician: Roshni Bolton MD Consults: Infectious disease consultation: Assessment and Plan: 73yoM with hx of orthostatic hypotension, gout, DJD s/p R MARY and pancreatic cancer diagnosed in 02/2021 s/p Whipple procedure in 03/2021 with PTC placement for biliary drainage. He had ongoing metastatic disease, and was recently placed on Abraxane and gemictabine ~1 week ago (given via R sided port), with plans to continue therapy for 4 months tentatively per notes. He presented to [facility] on 05/02/23 with complaints of fevers up to 101 F at home occuring for the prior 24 hours, with associated myagias. He had no cough, reported CP or SOB, no N/V/D, no sx's and no clear sick contacts per review of notes. Here, he had a low grade temp of 100.1 F, with associated hypotension. WBC count was low at 1.64, with an ANC of 0.8, Hb was 10.7 and LFTs were notable for an AST of 195, ALT of 171 and alk phos of 518, all up. UA was neg for LE/nitrite. COVID/Flu/RSV testing were all neg. CXR showed some mild central bronchial thickening without any clear dense consolidations seen, along with presence of his R chest port. CT C/A/P was then done, which postop changes from his Whipple, along with mild haziness in the LUQ proximal SB loops, c/f possible enteritis. In addition, some mild biliary ductal dilation was noted in the setting of his PTC being in place. Some new lung nodules were seen in the setting of his prior known lung mets, some measuring up to 1 cm in size. An indeterminate L hepatic lobe lesion was also seen, along with some unchanged mesenteric lymphadenopathy. He was admitted for suspected neutropenic fever, blood cx x 2 were obtained, and the patient was placed on empiric Zosyn. In the interim, blood cx from 05/02 returned positive for GPR in 2/2 sets. Given this, ID was consulted on 05/03/23 to help assist in further management. Patient had neutropenia with reported fevers at home and a Tmax here of 100.1 F thus far, raising c/f neutropenic fever. He now has high grade GPR bacteremia in 2/2 blood cx sets from 05/02; these are now confirmed growing from anaerobic bottles only. Possible sources of GPR in blood include biliary translocation given ductal dilation noted on CT imaging and elevated LFTs on admission (now improving). Alternatively, GI translocation from possible enteritis is possible as well, given CT imaging findings. The patient has a R MARY, X-ray of MARY site shows no obvious c/f infection, but if patient has any hip or groin/RLE pain present, would still consult Ortho for input. CLABSI was also a concern, given port is in place--this was removed on 05/03 in setting of bacteremia, tip cx is pending, and repeat 05/03 blood cx are pending. PNA seems unlikely, as does source of infection--however, in setting of neutropenia, if Ucx is positive, would still treat in this particular setting. Ok to continue Zosyn for now given neutropenic status, and continue IV vancomycin pending GPR identification and sensi data.Now that port is removed, we will f/u on tip cx and would repeat blood cx daily until we have 2 sets neg x 48 hours--until then, no correction lines should be placed . Given port does go towards RA of heart, would be reasonable to obtain TTE to ensure no endovascular seeding is present, although this would be less likely with a GPR in general. If diarrhea is present, would obtain stool cx, stool O+P, fecal leukocytes, and C.dif testing to workup for colitis/enteritis. If abdominal pain does present itself or LFTs begin to rise again, would touch base with IR to see if PTC needs to be repositioned or upsized for better drainage. Otherwise, based on GPR identification, sensi data and results of above, we will determine next steps. Please monitor for any signs of infectious seeding (joints, eyes, spine, lungs, [employer], psoas, etc)--if suspected, please notify ID right away. Would ideally HOLD chemo at this time given active infectious process. RECOMMENDATIONS: 1. For now, continue Zosyn 3.375g IV Q6H (CrCl>60) for empiric GI/skin charanjit coverage as well as coverage for neutropenic fever 2. Until GPR identification and sensi data is back, would continue IV vancomycin (Pharmacy to manage dosing/levels) 3. Will f/u on 05/03 port tip cx (NGTD) 4. Now that port is removed, please repeat blood cx daily until we have 2 sets neg x 72 hours(given isolate is anaerobic)--until then, no terminologist lines should be placed 5. Would obtain TTE given above points (high grade GPR bacteremia, immunosuppression, port in RA area) 6. MARY X-ray is neg, however if patient has R MARY site pain/R groin/RLE pain, then would consult Orthopedics for aspiration of R MARY site--if done, please send cell count w/dif, Gram stain, bacterial (aer/anaerobic) cx, fungal stains/cx and crystals, to complete ID workup 7. If diarrhea is noted, would obtain stool cx, stool O+P, fecal leukocytes, and C.dif testing to workup for colitis/enteritis, given CT A/P findings raised c/f enteritis. 8. If abdominal pain does present itself or LFTs begin to rise again, would touch base with IR to see if PTC needs to be repositioned or upsized for better drainage. 9. Otherwise, based on GPR identification, sensi data and results of above, we will determine next steps. 10. Please continue to monitor for any signs of infectious seeding (joints, eyes, spine, lungs, [employer], psoas, etc)--if suspected, please notify ID right away. 11. Would ideally continue to HOLD chemo at this time given active infectious process. 12. On Zosyn/vanco, please monitor CBC w/dif, CMP carefully in the hospital given low blood counts and elevated LFTs Attending Physician on discharge: Roshni Bolton MD Date of Discharge: 05/07/23 DS: Diagnosis Discharge Diagnosis (1) Clostridium perfringens infection: Status: Acute Problem details: Initial blood cultures growing Clostridium perfringens. Subsequent cultures are negative for 4 days. No fever for 4 days. (2) Anaerobic bacteremia: Status: Acute Problem details: Growing Clostridium perfringens without a definite source. Possibly due to percutaneous drainage tube in biliary system. (3) Pancreatic cancer: Status: Acute Problem details: - follows with [facility], diagnosed 02/2021, Whipple procedure, recurrence 2023 (4) Orthostatic hypotension: Status: Acute Problem details: Chronic, lifelong. - takes Midodrine at home prn (up to 5x/day) (5) Neutropenic fever: Status: Acute Problem details: Fever and neutropenia resolved after the day of admission. Neutropenia due to therapy with Abraxane and gemcitabine for pancreatic cancer DS: Summary Hospital Course Hospital Course: 73-year-old male with pancreatic cancer admitted to the hospital with fever. The time of admission he was also found to have absolute neutrophil count of 800. Admitted for evaluation and management of neutropenic fever. Initial blood cultures grew Gram-positive cocci which eventually were identified as Clostridium perfringens. He had extensive evaluation including imaging of chest abdomen pelvis, repeat cultures, removal of port. Subsequent evaluation was all unremarkable. Does have a percutaneous biliary drain in place. It is possible that this is contributing to the bacteremia. The port site itself has never appeared infected and has not been draining significant fluid. No other apparent site of infection identified. Clinically he has been doing well for the last few days. After the day of admission his absolute neutrophil count was above 1000. His fever has resolved. He has ongoing intermittent mild hypotension which is normal for him. He is anxious to go home. Sensitivities for has Clostridium infection are still pending due to technical problems at the reference lab. After discussion of risks and benefits of remaining in the hospital for IV antibiotics which are proven to be effective or being discharged for outpatient antibiotics he chooses to go home today. He is discharged on daptomycin 500 mg IV daily plus metronidazole 500 mg p.o. t.i.d.. This regimen will continue until sensitivities are available and pending his clinical course. I will follow-up with him daily to assess clinical course and follow culture sensitivity results, Patient currently has no port. After this infection is cleared he will need a plan about ongoing chemotherapy. As a part of his plan for chemotherapy will need central venous access, possibly a temporary PICC line or a new port. Status at Discharge Functional status at discharge: independent ambulation Time Spent with Patient Time attestation: Total time spent providing and/or coordinating discharge services: Time spent: Greater than 30 minutes Exam Narrative: Exam Narrative: He is alert appears in no distress. He is seen with his today. Breathing is unlabored. Abdomen is soft without tenderness. Right upper quadrant/right flank drain with no significant erythema or drainage or tenderness Const: Vital Signs, click to edit/add: Vital Signs - 24 hr 03/01/24 15:59 05/06/23 15:59 05/06/23 19:52 Temperature 97.8 F 97.4 F L Pulse Rate [Pulse Oximeter] 87 74 Respiratory Rate 16 18 Blood Pressure [Le ft Arm] 105/62 107/74 Pulse Oximetry 98 98 98 Oxygen Delivery Me thod Room Air Room Air Room Air 05/06/23 22:48 05/06/23 23:00 05/07/23 00:51 Temperature 98 F 97.9 F Pulse Rate [Pulse Oximeter] 61 68 Respiratory Rate 18 18 20 Blood Pressure [Le ft Arm] 116/75 113/101 H Pulse Oximetry 96 96 96 Oxygen Delivery Me thod Room Air Room Air Room Air 05/07/23 07:45 05/07/23 07:45 05/07/23 07:45 Temperature 97.7 F Pulse Rate [Pulse Oximeter] 90 90 Respiratory Rate 18 18 18 Blood Pressure [Le ft Arm] 82/59 L Pulse Oximetry 90 90 Oxygen Delivery Me thod Room Air Room Air Documenting provider has reviewed patient's vital signs: yes DS: Data Data Completed and Pending Labs on day of discharge: Labs from last 24 hours 05/07/23 06:02 WBC 3.84 L RBC 2.77 L Hgb 9.7 L Hct 28.9 L MCV 104 H MCH 35 H MCHC 34 Plt Count 179 Sodium 138 Potassium 3.6 Chloride 109 Carbon Dioxide 23 Anion Gap 6 L BUN 10 Creatinine 0.8 Estimated Creat Clear 70.07 Estimated GFR 93 Glucose 88 Calcium 8.2 L Total Bilirubin 0.9 AST 65 H ALT 76 H Alkaline Phosphatase 331 H C-Reactive Protein 3.3 H Total Protein 5.6 L Albumin 2.5 L Procalcitonin 1.78 H Preliminary micro results at discharge 05/06/23 06:36 Blood Culture - Preliminary Blood NO GROWTH AFTER 24 HOURS 05/06/23 06:25 Blood Culture - Preliminary Blood NO GROWTH AFTER 24 HOURS 05/04/23 06:20 Blood Culture - Preliminary Blood NO GROWTH AFTER 72 HOURS 05/04/23 06:13 Blood Culture - Preliminary Blood NO GROWTH AFTER 72 HOURS 05/05/23 06:02 Blood Culture - Preliminary Blood NO GROWTH AFTER 48 HOURS 05/05/23 05:54 Blood Culture - Preliminary Blood NO GROWTH AFTER 48 HOURS 05/02/23 16:42 Blood Culture - Preliminary Blood 05/03/23 14:52 Blood Culture - Preliminary Blood NO GROWTH AFTER 72 HOURS 05/03/23 15:00 Blood Culture - Preliminary Blood NO GROWTH AFTER 72 HOURS 05/03/23 14:37 Body Fluid Culture - Preliminary Abscess - Other NO GROWTH AFTER 72 HOURS 05/02/23 16:59 Blood Culture - Preliminary Blood Imaging CT Chest/Ab/Pelvis: Radiologist's impression: INDICATION: Pancreatic cancer, neutropenic fever. TECHNIQUE: CT chest, abdomen, and pelvis acquired with 94 cc Isovue 370 IV contrast. COMPARISON: CT abdomen and pelvis 04/15/2022. FINDINGS: CHEST: Lungs and pleura: 10 mm subpleural nodule in the left lower lobe (series 2, image 58). Additional few scattered sub-6 mm pulmonary nodules, some which appear new since prior study such as a 3 mm nodule in the right lower lobe (series 2, image 60). No acute infiltrates. No pleural effusions or pneumothorax. Cardiovascular structures: Heart size is normal. Thoracic aorta and main pulmonary artery are normal in caliber. Coronary artery calcifications. Right chest wall port catheter terminates near the cavoatrial junction. Mediastinum and cortes: No mass or adenopathy. Chest wall and axilla: No mass or adenopathy. Bilateral gynecomastia. Bones: Degenerative changes. ABDOMEN AND PELVIS: Liver: Subcentimeter hypodense focus in the left hepatic lobe is too small to accurately characterize but unchanged. Gallbladder and bile ducts: Status post cholecystectomy. Interval percutaneous transhepatic biliary drainage catheter placement. Persistent mild intra and extrahepatic biliary ductal dilation. Minimal pneumobilia. Spleen: Unremarkable. Adrenal glands: Unremarkable. Pancreas: Status post Whipple procedure. No discrete mass identified. Removal of pancreatic duct stent. Kidneys: Unremarkable. GI tract: Perigastric postsurgical changes. Mild haziness surrounding the left upper quadrant proximal small bowel loops. Scattered colonic diverticula without evidence of diverticulitis. No evidence of obstruction. Lymph nodes: Prominent central mesenteric nodes, unchanged. Vascular structures: Scattered atherosclerotic calcifications. Miscellaneous: Fat containing umbilical hernia. Mild mesenteric edema. No focal fluid collection. No free air. Pelvic organs: Evaluation limited by hardware streak artifact. Bones: Degenerative changes. Right hip arthroplasty. IMPRESSION: 1. Mild haziness surrounding the left upper quadrant proximal small bowel loops, nonspecific may reflect enteritis. 2. Interval percutaneous transhepatic biliary drainage catheter placement with persistent mild biliary ductal dilation. 3. Stable indeterminate left hepatic lobe lesion. 4. Status post Whipple procedure. Removal of pancreatic duct stent. 5. Unchanged prominent central mesenteric nodes. 6. Scattered pulmonary nodules measuring up to 10 mm, some of which appear new since prior study. Findings are indeterminate but metastatic disease would be a differential consideration. Recommend continued attention on follow-up studies. Discharge Plan Discharge Disposition: Home, Self-Care Date of Admission: 05/02/23 23:20 Attending Provider on Discharge: Moses Poon Consulting Providers: Stacy Yee; Connie Zayas; Lorraine Laboy; Sidney Pennington; Radames Hedrick; Erendira French; Tricia Christiansen; Shayna Burton; Rebeca Hammer; Shriley Couch; Luba Corcoran; Lyly Huang; Gary Lynch; Chaitanya Mcdonald; Johanny Pickett Primary Care Provider: Chinedu Hudson Condition: Improved Anticipated Discharge Date/Time: 05/07/23 11:30 Discharge Medications: New metronidazole 500 mg tablet 500 mg PO TID Qty: 30 0RF Continued prochlorperazine maleate 10 mg tablet 10 mg PO Q6H PRN (Reason: nausea) magnesium oxide 400 mg (241.3 mg magnesium) tablet 400 mg PO BID pantoprazole 40 mg tablet,delayed release (DR/EC) 40 mg PO DAILY gabapentin 100 mg capsule 200 mg PO HS midodrine 10 mg tablet 10 mg PO 5XD aspirin 81 mg capsule 81 mg PO DAILY colchicine 0.6 mg capsule 0.6 mg PO DAILY PRN Creon 36,000-114,000- 180,000 unit capsule,delayed release(DR/EC) 3 cap PO TIDWM Rx Instructions: Take 3 capsules with meals and 2 capsules with snacks.; administer with meals and/or snacks lidocaine 5 % adhesive patch,medicated 1 patch topical Q24H Rx Instructions: leave on most painful area for up to 12 hrs melatonin 3 mg capsule 3 mg PO HS polyethylene glycol 3350 17 gram/dose powder 17 g PO DAILY PRN metoclopramide HCl [Reglan] 10 mg tablet 10 mg PO Q6H PRN trazodone 50 mg tablet 50 mg PO HS PRN sildenafil 100 mg tablet 100 mg PO DAILY PRN (Reason: intercourse) sennosides 8.6 mg tablet 8.6 mg PO DAILY Discharge Orders: Discharge Order (Routine); Ordered 05/07/23 Ordered By: Moses Poon Patient Education: Metronidazole (By mouth), Daptomycin (By injection), Neutropenia (DC), Neutropenic Precautions (GEN) Additional Instructions: follow up daily for outpatient IV antibiotic, Daptomycin Activity Level: Activity as Tolerated Discharge Diet: Regular Follow Up Appointments: Chinedu Hduson MD [Primary Care Provider] - 05/11/23 11:45 am ([facility] for follow up ) Forms: [employer] Info Instructions Discharge Comments: Please send discharge summary to Dr. Carla Ravi of [facility] in [place]
--- NOTE | 2023-05-08 10:49 | PM.EN ---
Chart Event Note Date Seen: 05/08/23 Chart Event Note: Patient here for daptomycin. Reports feeling well except for a metallic taste and slight nausea probably due to metronidazole. No fever, myalgias, cough or dyspnea or other symptoms of illness. Sensitivities on his blood culture are still pending.
--- NOTE | 2023-05-09 09:19 | PM.EN ---
Chart Event Note Date Seen: 05/09/23 Chart Event Note: Patient presents for daptomycin treatment today. This is his 3rd day of daptomycin after 4 days of vancomycin and Zosyn. He continues to feel well. No cough or dyspnea, no myalgias, no fever, eating well. Abnormal taste reported yesterday has resolved. Has been walking outside to regain his strength. Sensitivities on his blood cultures showing Clostridium perfrigens are still pending. Continue daptomycin and metronidazole orally until sensitivities are available or 1 more week
--- NOTE | 2023-05-10 10:04 | PM.EN ---
Chart Event Note Date Seen: 05/10/23 Chart Event Note: 73-year-old male presents for ongoing outpatient treatment with daptomycin. Last night he had an episode of chills. Temperature at home was 101.6. He is brought to the emergency room by his for evaluation. He did not have a fever in the emergency department and by the time he got there he was feeling fine. Evaluation there showed relatively normal vital signs except his relatively low blood pressure which is chronic. His cbc was normal. Abdominal CT scan showed: Impression: 1. New wall thickening and adjacent stranding surrounding the ascending and proximal transverse colon suspicious for colitis. 2. Increasing ascites. This may be secondary in part to the presumed colitis, although hepatic decompensation given cirrhosis and portal hypertension may also give this appearance. 3. No other acute abnormality appreciated. He was discharged home without a change of treatment plan. Since last night he has had no further fever any otherwise feels well. Continues to be very physically active with his walking and exercise. He has not had diarrhea or abdominal pain. He does feel a vague sense of abdominal bloating. He had a bowel movement this morning which was soft but not diarrhea. He has no respiratory symptoms, cough or dyspnea and no myalgias. Exam: Abdomen is soft without tenderness or mass. Assessment and Plan: 1. Clostridium perfringens bacteremia. Sensitivities still pending. Four days of vancomycin and Zosyn as an inpatient and today is his 4th day of daptomycin and metronidazole. 2. Colitis involving ascending and proximal transverse colon with ascites. Not currently having symptoms of abdominal pain or diarrhea. 3. Fever: 1 episode of fever and chills last night now resolved. Continue to monitor at home. Revisit plan of care with Dr. Hedrick ([phone]) if recurrent fevers or clinical illness develop. 4. Pancreatic cancer status post Whipple procedure with recurrence and now on systemic chemotherapy. Pending outpatient follow-up with Oncology next week for plan of care. 5. Pancytopenia due to chemotherapy. Much improved. 6. Volume status: Patient's weight is up 7 kg during recent hospital stay. Now diuresing. No obvious clinical volume overload except small ascites. Not edematous or in heart failure. Continue outpatient daptomycin and oral Flagyl through TuesdayMay 15 dose unless culture sensitivities or clinical illness require a change. Total time spent today is 40 minutes in coordination of care and discussing with patient, and other providers ongoing management of bacteremia and fever.
--- NOTE | 2023-05-12 13:52 | PM.EN ---
Chart Event Note Date Seen: 05/12/23 Chart Event Note: 73-year-old male here for outpatient daptomycin treatment. He reports feeling fine. No recurrent fevers. No cough or dyspnea. No myalgias. No nausea vomiting abdominal pain or diarrhea. Continues to be active walking a mile a day and riding a bicycle. Also taking metronidazole 500 mg t.i.d.. Continue daptomycin through TuesdayMay 15. Return to the emergency department for fever abdominal pain or other new illness.
== END 2023-05-07 11:25 | disposition home or self-care (01) | DRG 253 ==
LOC: ED 21:33 → MEDSURG 22:01
PROVIDERS: Family Medicine; Admitting Provider Family Medicine; Emergency Provider Family Medicine; PCP Family Medicine; Visit Provider Family Medicine
DX: T80.211A Bloodstream infection due to central venous catheter, initial encounter (principal); C25.9 Malignant neoplasm of pancreas, unspecified; R78.81 Bacteremia; C78.7 Secondary malignant neoplasm of liver and intrahepatic bile duct; C77.1 Secondary and unspecified malignant neoplasm of intrathoracic lymph nodes; C78.02 Secondary malignant neoplasm of left lung; C78.01 Secondary malignant neoplasm of right lung; B96.7 Clostridium perfringens [C. perfringens] as the cause of diseases classified elsewhere; D70.9 Neutropenia, unspecified; R50.81 Fever presenting with conditions classified elsewhere; B96.89 Other specified bacterial agents as the cause of diseases classified elsewhere; I95.1 Orthostatic hypotension; M10.9 Gout, unspecified
CPT/HCPCS: 36415; 71045; 71260; 73502; 74177; 80053; 80069; 80076; 81001; 82248; 82803; 82977; 83605; 83690; 84145; 85025; 85027; 85610; 86140; 87040; 87070; 87081; 87186; 87449; 87493; 87631; 93005; 93306; 94761; 99284; 99285; A9270; J0878; J1642; J1650; J2543; J3370; J7030; J7120; Q9967

== ENCOUNTER 2023-05-09 22:49 | Emergency (ER) | payer MEDICARE, BC, SELFPAY ==
--- NOTE | 2023-05-09 22:57 | ED.GENADULT ---
HPI - General Adult General Time Seen by Provider: 22:57 <Todd Blandon MD - Last Filed: 05/10/23 23:25> Date Seen: 05/09/23 <Todd Blandon MD - Last Filed: 05/10/23 23:25> Chief complaint: Fever <Todd Blandon MD - Last Filed: 05/10/23 23:25> Stated complaint: Fever/Shaking <Todd Blandon MD - Last Filed: 05/10/23 23:25> Time Seen by Provider: 05/09/23 22:57 <Todd Blandon MD - Last Filed: 05/10/23 23:25> Source: patient, family, RN notes reviewed and old records reviewed <Todd Blandon MD - Last Filed: 05/10/23 23:25> Mode of arrival: ambulatory <Todd Blandon MD - Last Filed: 05/10/23 23:25> Limitations: no limitations <Todd Blandon MD - Last Filed: 05/10/23 23:25> History of Present Illness HPI narrative: 73-year-old male with recent complex medical history including recurrent pancreatic cancer after being had a Whipple in cholecystectomy a couple years ago, initially presented with a fever on May 02, was found to be tachycardic and hypotensive with neutropenia and blood cultures growing Clostridium perfringens, currently on daptomycin IV and Flagyl orally. Patient presents today with fever and chills at home. Patient noted to have chills this evening and temperature 101.6? at home, no medications given. Patient denies other symptoms but does admit that he got lightheaded with this. Denies chest pain, shortness of breath, cough, abdominal pain, nausea, vomiting, diarrhea. <Todd Blandon MD - Last Filed: 05/10/23 23:25> Related Data Home medications: Home Medications Medication Instructions Recorded Confirmed aspirin 81 mg capsule 81 mg PO DAILY 05/02/23 05/02/23 colchicine 0.6 mg capsule 0.6 mg PO DAILY PRN 05/02/23 05/02/23 gabapentin 100 mg capsule 200 mg PO HS 05/02/23 05/03/23 lidocaine 5 % topical patch 1 patch topical Q24H 05/02/23 05/02/23 [id number] 3 cap PO TIDWM 05/02/23 05/03/23 36,000-114,000-180,000 unit capsule,delay rel (Creon) magnesium oxide 400 mg (241.3 mg 400 mg PO BID 05/02/23 05/02/23 magnesium) tablet melatonin 3 mg capsule 3 mg PO HS 05/02/23 05/03/23 metoclopramide HCl 10 mg tablet 10 mg PO Q6H PRN 05/02/23 05/03/23 (Reglan) midodrine 10 mg tablet 10 mg PO 5XD 05/02/23 05/02/23 pantoprazole 40 mg tablet,delayed 40 mg PO DAILY 05/02/23 05/02/23 release polyethylene glycol 3350 17 17 g PO DAILY PRN 05/02/23 05/03/23 gram/dose oral powder prochlorperazine maleate 10 mg 10 mg PO Q6H PRN nausea 05/02/23 05/02/23 tablet sennosides 8.6 mg tablet 8.6 mg PO DAILY 05/02/23 05/02/23 sildenafil 100 mg tablet 100 mg PO DAILY PRN intercourse 05/02/23 05/02/23 trazodone 50 mg tablet 50 mg PO HS PRN 05/02/23 05/03/23 Previous Rx's Medication Instructions Recorded metronidazole 500 mg tablet 500 mg PO TID #30 tabs 05/07/23 <Todd Blandon MD - Last Filed: 05/10/23 23:25> Allergies/adverse reactions: Allergies Allergy/AdvReac Type Severity Reaction Status Date / Time No Known Drug Allergies Allergy Verified 05/09/23 23:22 <Todd Blandon MD - Last Filed: 05/10/23 23:25> [facility] Medical History: Medical History (Updated 05/10/23 @ 01:08 by Jessi Rodríguez MD) Gout ?M10.9 - Gout, unspecified (ICD-10) Orthostatic hypotension ?I95.1 - Orthostatic hypotension (ICD-10) Pancreatic cancer ?C25.9 - Malignant neoplasm of pancreas, unspecified (ICD-10) <Todd Blandon MD - Last Filed: 05/10/23 23:25> Surgical History: Surgical History (Updated 05/02/23 @ 22:27 by Roshni Bolton MD) H/O Whipple procedure ?Z90.410 - Acquired total absence of pancreas (ICD-10) ?Z90.49 - Acquired absence of other specified parts of digestive tract (ICD-10) S/P hip replacement ?Z96.649 - Presence of unspecified artificial hip joint (ICD-10) <Todd Blandon MD - Last Filed: 05/10/23 23:25> Social History: Social History (Updated 05/02/23 @ 23:34 by Roshni Bolton MD) Narrative: Retired from [employer] in [place]. Lives with Maritza (medical decision maker if needed), 2 adult children in [place]. No current smoking, no alcohol use. Active daily. Requests full code status. What is your current living situation?: I presently have a place to live Problems where you live: no known problems Problems where you live details: NA In the past 12 months, utilities in danger of being shut off: no In past 12 months, lack of transportation kept you from medical appts, meetings, work, or getting things needed for daily living: no In the past 12 mos, have been you worried that your food would run out before you had money to buy more?: never true In the past 12 mos, the food you bought just didn't last and you didn't have money to buy more?: never true Highest level of school completed/degree received: Associate degree: academic program Smoking Status: Never smoker Do you use any of these nicotine containing products: None Second hand tobacco smoke exposure: No How often do you have a drink containing alcohol: never How often do you have six or more drinks on one occasion: Never AUDIT-C Alcohol total score: 0 Non-prescribed substance use: denies use Caffeine: Yes (Rare) How often does anyone, including family, friends and others, physically hurt you: never How often does anyone, including family, friends and others, insult or talk down to you: never How often does anyone, including family, friends and others, threaten you with harm: never How often does anyone, including family, friends and others, scream or curse at you: never service: No <Todd Blandon MD - Last Filed: 05/10/23 23:25> Exam Narrative: Exam Narrative: General: Well-developed and well-nourished, no acute distress Head: Atraumatic and normocephalic Eyes: Pupils are equal reactive, extraocular motions intact, conjunctiva clear ENT: External nose and ears are normal, posterior pharynx without erythema or exudate Neck: No midline cervical tenderness, full spontaneous range of motion the neck, trachea midline, no adenopathy Heart: Tachycardic but regular Lungs: Clear to auscultation bilaterally without wheezes or crackles Abdomen: Soft, nontender, nondistended with active bowel sounds Musculoskeletal: No tenderness, deformity, or edema Neurologic: Awake, alert, and oriented x3, no gross focal neurologic deficits, cranial nerves intact as tested Psych: Mood and affect are appropriate Skin: No rashes <Todd Blandon MD - Last Filed: 05/10/23 23:25> Const: Vital Signs, click to edit/add: Vital Signs - 24 hr 05/10/23 00:39 05/10/23 01:17 Temperature 99.0 F Pulse Rate [Right Pulse Oximeter] 94 Respiratory Rate 18 20 Blood Pressure [Ri ght Upper Arm] 110/63 123/74 Pulse Oximetry 97 96 Oxygen Delivery Me thod Room Air Room Air <Todd Blandon MD - Last Filed: 05/10/23 23:25> Vital Signs, click to edit/add: Vital Signs - 24 hr 05/10/23 00:39 05/10/23 01:17 Temperature 99.0 F Pulse Rate [Right Pulse Oximeter] 94 Respiratory Rate 18 20 Blood Pressure [Ri ght Upper Arm] 110/63 123/74 Pulse Oximetry 97 96 Oxygen Delivery Me thod Room Air Room Air <Jessi Rodríguez MD - Last Filed: 05/10/23 01:17> Course Course ED Course: Patient seen and examined, prior records reviewed. Patient with known Clostridium perfringens bacteremia on daptomycin and Flagyl presents today with recurrence of fever. Previously patient was discharged from the hospital on May 06 with 4 sets of negative blood cultures as well as no fever for 4 days. Labs are ordered and given recurrence of fever, plan for admission. CT chest abdomen pelvis will be repeated today as well. <Todd Blandon MD - Last Filed: 05/10/23 23:25> Reevaluation(s) Time of Reevaluation #1: 23:50 <Todd Blandon MD - Last Filed: 05/10/23 23:25> Reevaluation #1: Labs ordered and independently interpreted by me with normal CBC which is significantly improved from previously seen neutropenia, hemoglobin 11.1 which is stable for the patient, lactate 1.5. Sign out to oncoming provider pending remaining lab results and CT results, disposition. Patient is already on IV antibiotics, vital is stable with no evidence for sepsis. Consider home with continued monitoring verses readmission due to fever in spite of antibiotics. <Todd Blandon MD - Last Filed: 05/10/23 23:25> Time of Reevaluation #2: 01:14 <Jessi Rodríguez MD - Last Filed: 05/10/23 01:17> Reevaluation #2: Dr. Rodríguez-I assumed care of patient from outgoing evening provider, pending CT results. I reviewed these, showing what looks like a fairly mild colitis of the ascending and proximal transverse colon. There is a mild amount of ascites. Lab work reviewed. Patient has not had a true fever here for us. I discussed the findings with he and his . He is not experiencing any intra-abdominal symptoms at this time, no bloody stools, no pain. The colitis could certainly be viral, inflammatory or a sign of other bacterial complication. Patient tells me that he exercised for 90 minutes earlier today, has been feeling well, eating well. He is due to come back in 8 hours for his IV antibiotics. We have drawn new blood cultures. He reports that he thinks that he could go home and would be very reliable to come back if his abdominal symptoms worsen. He will continue taking as metronidazole and will continue his daptomycin as scheduled. I discussed putting in the hospital for observation while we continue sorting these things out. He does not think this is necessary at this time, his agrees. They adamantly agree that they will come back if symptoms worsen or if we call reporting positive blood cultures and that they will continue their antibiotics. They seem incredibly reliable for follow-up and I think this is reasonable. <Jessi Rodríguez MD - Last Filed: 05/10/23 01:17> Vital Signs Vital signs: Initial Vital Signs Temperature 98.9 F 05/09/23 23:21 Temperature Source Temporal Artery Scan 05/09/23 23:21 Pulse Rate 92 05/09/23 23:21 Respiratory Rate 20 05/09/23 23:21 Blood Pressure 102/60 05/09/23 23:21 Blood Pressure Mean 74 05/09/23 23:21 Blood Pressure Position Supine 05/09/23 23:21 Pulse Oximetry 96 05/09/23 23:21 Oxygen Delivery Method Room Air 05/09/23 23:21 Vital Signs Temperature 98.9 F 05/09/23 23:21 Pulse Rate 92 05/09/23 23:21 Respiratory Rate 20 05/09/23 23:21 Blood Pressure 102/60 05/09/23 23:21 Pulse Oximetry 96 05/09/23 23:21 Oxygen Delivery Method Room Air 05/09/23 23:21 Temperature 99.0 F 05/10/23 00:39 Pulse Rate 94 05/10/23 01:17 Respiratory Rate 20 05/10/23 01:17 Blood Pressure 123/74 05/10/23 01:17 Pulse Oximetry 96 05/10/23 01:17 Oxygen Delivery Method Room Air 05/10/23 01:17 <Todd Blandon MD - Last Filed: 05/10/23 23:25> Initial Vital Signs Temperature 98.9 F 05/09/23 23:21 Temperature Source Temporal Artery Scan 05/09/23 23:21 Pulse Rate 92 05/09/23 23:21 Respiratory Rate 05/09/23 23:21 Blood Pressure 102/60 05/09/23 23:21 Blood Pressure Mean 74 05/09/23 23:21 Blood Pressure Position Supine 05/09/23 23:21 Pulse Oximetry 96 05/09/23 23:21 Oxygen Delivery Method Room Air 05/09/23 23:21 Vital Signs Temperature 98.9 F 05/09/23 23:21 Pulse Rate 92 05/09/23 23:21 Respiratory Rate 20 05/09/23 23:21 Blood Pressure 102/60 05/09/23 23:21 Pulse Oximetry 96 05/09/23 23:21 Oxygen Delivery Method Room Air 05/09/23 23:21 Temperature 99.0 F 05/10/23 00:39 Pulse Rate 94 05/10/23 01:17 Respiratory Rate 20 05/10/23 01:17 Blood Pressure 123/74 05/10/23 01:17 Pulse Oximetry 96 05/10/23 01:17 Oxygen Delivery Method Room Air 05/10/23 01:17 <Jessi Rodríguez MD - Last Filed: 05/10/23 01:17> Medical Decision Making Lab Data Lab results reviewed: Yes I reviewed the patient's lab results <Jessi Rodríguez MD - Last Filed: 05/10/23 01:17> Lab results narrative: Patient no longer neutropenic. Electrolytes within reason. Liver enzymes are mildly elevated, somewhat more than at hospital discharge but certainly better than last year. Viral swabs are negative. <Jessi Rodríguez MD - Last Filed: 05/10/23 01:17> Labs: Lab Results 05/09/23 05/09/23 Range/Units 00:18 23:18 WBC 8.51 (4.50-11.00) K/uL RBC 3.17 L (4.30-5.90) m/uL Hgb 11.1 L (13.5-17.5) gm/dL Hct 33.0 L (37.0-53.0) % MCV 104 H (80-100) fL MCH 35 H (26-34) pg MCHC 34 (32-36) gm/dL RDW Coeff of Fidelina 14.5 (11.5-15.5) % Plt Count 197 (140-440) K/uL Neut % (Auto) 78.6 H (42.0-72.0) % Lymph % (Auto) 12.6 L (20-44) % [place] % (Auto) 7.6 (0.0-11.0) % Eos % (Auto) 0.2 (0.0-7.0) % Baso % (Auto) 0.4 (0.0-3.0) % Neut # (Auto) 6.70 (1.7-7.0) K/uL Lymph # (Auto) 1.10 (0.90-2.90) K/uL [place] # (Auto) 0.60 (0.00-0.90) K/UL Eos # (Auto) 0.02 (0.00-0.50) K/uL Baso # (Auto) 0.03 (0.00-0.30) K/uL Abs Immat Gran (auto) 0.05 (0.00-0.30) K/uL Imm/Tot Granulo (auto) 0.6 % Sodium 134 L (135-149) mmol/L Potassium 3.8 (3.6-5.1) mmol/L Chloride 105 (96-114) mmol/L Carbon Dioxide 20 (20-32) mmol/L Anion Gap 9 (7-15) mEq/L BUN 16 (7-30) mg/dL Creatinine 0.7 (0.5-1.5) mg/dL Estimated Creat Clear 70.07 Estimated GFR 97 ml/min Glucose 120 H (60-115) mg/dL Lactate 1.5 (0.5-1.9) mmol/L Calcium 8.6 (8.4-10.6) mg/dL Magnesium 2.1 (1.5-2.6) mg/dL Total Bilirubin 2.4 H (0.1-1.5) mg/dL Direct Bilirubin 1.5 H (0.0-0.5) mg/dL AST 115 H (12-35) U/L ALT 86 H (4-50) U/L Alkaline Phosphatase 503 H (40-150) U/L Total Creatine Kinase 40 L (54-186) U/L Total Protein 6.5 (6.0-8.3) g/dL Albumin 2.9 L (3.3-5.0) g/dL Urine Color Yellow (Yellow) Urine Appearance Clear (Clear) Urine pH 7.5 (5.0-8.5) Ur Specific [place] 1.015 (1.000-1.030) Urine Protein Negative (Negative) Urine Glucose (UA) Negative (Negative) Urine Ketones Negative (Negative) Urine Blood Negative (Negative) Urine Nitrite Negative (Negative) Urine Bilirubin Negative (Negative) Urine Urobilinogen 1.0 (0.2-1.0) Ur Leukocyte Esterase Negative (Negative) Urine RBC 0-2 (0-2) Urine WBC 0-2 (0-5) Ur Squamous Epith Cells None (None-Few) Urine Bacteria None (None) SARS-CoV-2 (PCR) Negative SARS-CoV-2 (Negative) Influenza Type A (PCR) Negative PCR FLU A (Negative) Influenza Type B (PCR) Negative PCR FLU B (Negative) RSV (PCR) Negative PCR RSV (Negative) <Todd Blandon MD - Last Filed: 05/10/23 23:25> Lab Results 05/09/23 05/09/23 Range/Units 00:18 23:18 WBC 8.51 (4.50-11.00) K/uL RBC 3.17 L (4.30-5.90) m/uL Hgb 11.1 L (13.5-17.5) gm/dL Hct 33.0 L (37.0-53.0) % MCV 104 H (80-100) fL MCH 35 H (26-34) pg MCHC 34 (32-36) gm/dL RDW Coeff of Fidelina 14.5 (11.5-15.5) % Plt Count 197 (140-440) K/uL Neut % (Auto) 78.6 H (42.0-72.0) % Lymph % (Auto) 12.6 L (20-44) % [place] % (Auto) 7.6 (0.0-11.0) % Eos % (Auto) 0.2 (0.0-7.0) % Baso % (Auto) 0.4 (0.0-3.0) % Neut # (Auto) 6.70 (1.7-7.0) K/uL Lymph # (Auto) 1.10 (0.90-2.90) K/uL [place] # (Auto) 0.60 (0.00-0.90) K/UL Eos # (Auto) 0.02 (0.00-0.50) K/uL Baso # (Auto) 0.03 (0.00-0.30) K/uL Abs Immat Gran (auto) 0.05 (0.00-0.30) K/uL Imm/Tot Granulo (auto) 0.6 % Sodium 134 L (135-149) mmol/L Potassium 3.8 (3.6-5.1) mmol/L Chloride 105 (96-114) mmol/L Carbon Dioxide 20 (20-32) mmol/L Anion Gap 9 (7-15) mEq/L BUN 16 (7-30) mg/dL Creatinine 0.7 (0.5-1.5) mg/dL Estimated Creat Clear 70.07 Estimated GFR 97 ml/min Glucose 120 H (60-115) mg/dL Lactate 1.5 (0.5-1.9) mmol/L Calcium 8.6 (8.4-10.6) mg/dL Magnesium 2.1 (1.5-2.6) mg/dL Total Bilirubin 2.4 H (0.1-1.5) mg/dL Direct Bilirubin 1.5 H (0.0-0.5) mg/dL AST 115 H (12-35) U/L ALT 86 H (4-50) U/L Alkaline Phosphatase 503 H (40-150) U/L Total Creatine Kinase 40 L (54-186) U/L Total Protein 6.5 (6.0-8.3) g/dL Albumin 2.9 L (3.3-5.0) g/dL Urine Color Yellow (Yellow) Urine Appearance Clear (Clear) Urine pH 7.5 (5.0-8.5) Ur Specific [place] 1.015 (1.000-1.030) Urine Protein Negative (Negative) Urine Glucose (UA) Negative (Negative) Urine Ketones Negative (Negative) Urine Blood Negative (Negative) Urine Nitrite Negative (Negative) Urine Bilirubin Negative (Negative) Urine Urobilinogen 1.0 (0.2-1.0) Ur Leukocyte Esterase Negative (Negative) Urine RBC 0-2 (0-2) Urine WBC 0-2 (0-5) Ur Squamous Epith Cells None (None-Few) Urine Bacteria None (None) SARS-CoV-2 (PCR) Negative SARS-CoV-2 (Negative) Influenza Type A (PCR) Negative PCR FLU A (Negative) Influenza Type B (PCR) Negative PCR FLU B (Negative) RSV (PCR) Negative PCR RSV (Negative) <Jessi Rodríguez MD - Last Filed: 05/10/23 01:17> Imaging Data CT Chest/Ab/Pelvis: Attestation: I have reviewed the pertinent imaging results. <Jessi Rodríguez MD - Last Filed: 05/10/23 01:17> My impression: Marked surgical changes that impair my skill level of interpretation. <Jessi Rodríguez MD - Last Filed: 05/10/23 01:17> Radiologist's impression: Impression: 1. New wall thickening and adjacent stranding surrounding the ascending and proximal transverse colon suspicious for colitis. 2. Increasing ascites. This may be secondary in part to the presumed colitis, although hepatic decompensation given cirrhosis and portal hypertension may also give this appearance. 3. No other acute abnormality appreciated. <Jessi Rodríguez MD - Last Filed: 05/10/23 01:17> Discharge Plan Discharge Clinical Impression: Colitis, Drug induced fever <Todd Blandon MD - Last Filed: 05/10/23 23:25> Patient Disposition: Home w/ Parent or Adult <Todd Blandon MD - Last Filed: 05/10/23 23:25> Condition: Stable <Todd Blandon MD - Last Filed: 05/10/23 23:25> Instructions: Colitis (ED) <Todd Blandon MD - Last Filed: 05/10/23 23:25> Additional Instructions: As we discussed, the CT scan shows a mild colitis of the upper right side of the colon. This certainly could be the cause of the fever that you experienced at home. Most of the time, these are caused by viruses, not bacterial infections. Thankfully, you are no longer neutropenic and do seem to have adequate cells to fight off infection if needed. Your electrolytes and kidney function look very good. The antibiotics that you are taking would likely cover a bacterial infection quite well. We have collected new blood cultures, these are pending at this time. I do have concerns that this could be a breakthrough infection caused by bacteria in your PICC line, abdomen or blood. But overall, since you are feeling so good, exercising well and are not having any new intra-abdominal symptoms, this is difficult to interpret. Your fever certainly could be caused by this colitis. It could also be from the daptomycin. That is the antibiotic that you are currently taking through your IV. We discussed coming into the hospital for observation, repeat blood cultures and blood work to track things. I agree with your assessment that you could certainly come back to the emergency department if you feel more ill. We will call you if those blood cultures come back positive. Keep your plan to return at 9:00 a.m. later this morning for your IV antibiotics. Continue taking your metronidazole as scheduled. If you notice any signs of worsening, please come back to the emergency department. I would recommend repeat blood work in 2 days to ensure that your liver function is improving and that there are no other signs of complications. <Todd Blandon MD - Last Filed: 05/10/23 23:25> Activity Level: No Restrictions <Todd Blandon MD - Last Filed: 05/10/23 23:25> No Restrictions <Jessi Rodríguez MD - Last Filed: 05/10/23 01:17> Discharge Diet: Regular <Todd Blandon MD - Last Filed: 05/10/23 23:25> Regular <Jessi Rodríguez MD - Last Filed: 05/10/23 01:17> Prescriptions: No Action prochlorperazine maleate 10 mg tablet 10 mg PO Q6H PRN (Reason: nausea) magnesium oxide 400 mg (241.3 mg magnesium) tablet 400 mg PO BID pantoprazole 40 mg tablet,delayed release (DR/EC) 40 mg PO DAILY gabapentin 100 mg capsule 200 mg PO HS midodrine 10 mg tablet 10 mg PO 5XD aspirin 81 mg capsule 81 mg PO DAILY colchicine 0.6 mg capsule 0.6 mg PO DAILY PRN Creon 36,000-114,000- 180,000 unit capsule,delayed release(DR/EC) 3 cap PO TIDWM Rx Instructions: Take 3 capsules with meals and 2 capsules with snacks.; administer with meals and/or snacks lidocaine 5 % adhesive patch,medicated 1 patch topical Q24H Rx Instructions: leave on most painful area for up to 12 hrs melatonin 3 mg capsule 3 mg PO HS polyethylene glycol 3350 17 gram/dose powder 17 g PO DAILY PRN metoclopramide HCl [Reglan] 10 mg tablet 10 mg PO Q6H PRN trazodone 50 mg tablet 50 mg PO HS PRN sildenafil 100 mg tablet 100 mg PO DAILY PRN (Reason: intercourse) sennosides 8.6 mg tablet 8.6 mg PO DAILY metronidazole 500 mg tablet 500 mg PO TID Qty: 30 0RF <Todd Blandon MD - Last Filed: 05/10/23 23:25> Follow Up/Referrals: Chinedu Hudson MD [Primary Care Provider] - <Todd Blandon MD - Last Filed: 05/10/23 23:25> Stand Alone Forms: My[facility] Info Instructions <Todd Blandon MD - Last Filed: 05/10/23 23:25>
--- NOTE | 2023-05-09 23:18 | CT_ITS ---
Final Report Patient: MILAGROS RAIN Facility:?[facility] Patient ID:?[id number] Site Patient ID:?[id number]. Site :?[id number] Study:?CT Chest/Abd/Pelvis with 100cc [id number] contrast-05/10/2023 12:21:52 AM Ordering Physician:Hari Cottrell Final Report: Indication: Bacteremia, prior Whipple Technique: Postcontrast CT of the chest, abdomen, and pelvis with multiplanar reformats following 100 mL Isovue 370 IV. Comparison: CT chest, abdomen, and pelvis performed 05/02/2023 Findings: Chest: Lungs: No consolidation. No effusion. No pneumothorax. Nodule on the left fissure measuring 10 millimeters is unchanged from prior study. Mediastinum: No acute abnormality appreciated. Small pericardial effusion and cardiomegaly, unchanged. Calcified coronary arterial atherosclerosis. Recent right chest MediPort removal. Lymph nodes: Prominent subcarinal node is unchanged. Soft tissues: Small focus of gas in the prior MediPort chest wall pocket. Bones: No acute abnormality appreciated. Degenerative changes of the spine. Abdomen and Pelvis: Hepatobiliary: Percutaneous biliary drain and biliary dilation, similar in appearance to prior examination. No new or enlarging lesions appreciated. No acute abnormality appreciated. Spleen: Prominent spleen, no acute abnormality appreciated. Pancreas: No acute abnormality appreciated. Adrenal glands: No acute abnormality appreciated. Kidneys: No significant parenchymal abnormality appreciated. No visualized calculi. No hydronephrosis. Bowel: No obstruction. Scattered diverticula with no evidence of acute diverticulitis. Mild wall thickening of the ascending and proximal transverse colon with adjacent stranding, not present on prior examination. The appendix is visualized and appears unremarkable. 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 Lymph nodes: Unchanged prominent and enlarged mesenteric and retroperitoneal nodes. Peritoneum: Small volume ascites, increased compared to prior examination. No free air. : Partially obscured by streak artifact from right hip replacement. Grossly no acute abnormality appreciated. Soft tissues: No acute abnormality appreciated. Supraumbilical hernias containing ascites. Bones: Right hip replacement. No acute abnormality appreciated. Impression: 1. New wall thickening and adjacent stranding surrounding the ascending and proximal transverse colon suspicious for colitis. 2. Increasing ascites. This may be secondary in part to the presumed colitis, although hepatic decompensation given cirrhosis and portal hypertension may also give this appearance. 3. No other acute abnormality appreciated. Please note that all CT scans at this facility use dose modulation, iterative reconstruction, and/or weight-based dosing when appropriate to reduce radiation dose to as low as reasonably achievable. Dictated by Jose E Olivia MD @ 05/10/2023 12:48:11 AM (Electronic Signature)
[2023-05-09 23:21] VITALS: BP 102/60; PULSE 92; RESP 20; TEMP 37.2; O2SAT 96; BMI 28.6
[2023-05-09 23:25] LABS: Lactate* 1.5 mmol/L (0.5-1.9)
[2023-05-09 23:26] LABS: Basophils Absolute Auto 0.03 K/uL (0.00-0.30); Basophils Percent Auto 0.4 % (0.0-3.0); Eosinophils Absolute Auto 0.02 K/uL (0.00-0.50); Eosinophils Percent Auto 0.2 % (0.0-7.0); Hemoglobin* 11.1 gm/dL (13.5-17.5); Immature Granulocytes Abs Auto 0.05 K/uL (0.00-0.30); Immature Granulocytes Pct Auto 0.6 %; Lymphocytes Percent Auto 12.6 % (20-44); Mean Corpuscular HGB Conc 34 gm/dL (32-36); Mean Corpuscular Hemoglobin 35 pg (26-34); Mean Corpuscular Volume 104 fL (80-100); Monocytes Percent Auto 7.6 % (0.0-11.0); Neutrophils Percent Auto 78.6 % (42.0-72.0); Platelet Count* 197 K/uL (140-440); RDW Coefficient of Variation % 14.5 % (11.5-15.5); Red Blood Count 3.17 m/uL (4.30-5.90); White Blood Count* 8.51 K/uL (4.50-11.00)
[2023-05-09 23:27] LABS: Slide Review Reflex No
[2023-05-09 23:46] LABS: Albumin* 2.9 g/dL (3.3-5.0); Chloride* 105 mmol/L (96-114)
[2023-05-09 23:47] LABS: Potassium* 3.8 mmol/L (3.6-5.1); Sodium* 134 mmol/L (135-149)
[2023-05-09 23:49] LABS: Anion Gap 9 mEq/L (7-15); Aspartate Amino Transferase* 115 U/L (12-35); Bilirubin Direct* 1.5 mg/dL (0.0-0.5); Bilirubin Total* 2.4 mg/dL (0.1-1.5); Blood Urea Nitrogen* 16 mg/dL (7-30); Carbon Dioxide* 20 mmol/L (20-32); Creatinine* 0.7 mg/dL (0.5-1.5); Est. Creatinine Clearance* 70.07; Estimated Glomerular Filt Rate 97 ml/min; Total Protein* 6.5 g/dL (6.0-8.3)
[2023-05-09 23:50] LABS: Alanine Aminotransferase* 86 U/L (4-50); Alkaline Phosphatase* 503 U/L (40-150); Calcium* 8.6 mg/dL (8.4-10.6); Glucose* 120 mg/dL (60-115); Magnesium* 2.1 mg/dL (1.5-2.6)
[2023-05-10 00:25] LABS: PCR FLU A Negative PCR FLU A (Negative); PCR FLU B Negative PCR FLU B (Negative); PCR RSV Negative PCR RSV (Negative); SARS PCR* Negative SARS-CoV-2 (Negative)
[2023-05-10 00:33] LABS: Appearance Urine Clear (Clear); Bilirubin Urine Negative (Negative); Blood Urine Negative (Negative); Color Urine Yellow (Yellow); Glucose Urine Negative (Negative); Ketones Urine Negative (Negative); Leukocyte Esterase Urine Negative (Negative); Nitrite Urine Negative (Negative); Protein Urine Negative (Negative); Specific Gravity Urine 1.015 (1.000-1.030); pH Urine 7.5 (5.0-8.5)
[2023-05-10 00:39] VITALS: BP 110/63; RESP 18; TEMP 37.2; O2SAT 97
[2023-05-10 00:46] LABS: RBC Urine 0-2 (0-2); WBC Urine 0-2 (0-5)
[2023-05-10 01:17] VITALS: BP 123/74; PULSE 94; RESP 20; O2SAT 96
[2023-05-10 10:48] LABS: Creatine Kinase* 40 U/L (54-186)
== END 2023-05-10 01:35 | disposition home or self-care (01) ==
PROVIDERS: Family Medicine; Emergency Provider Family Medicine; PCP Family Medicine
DX: K52.9 Noninfective gastroenteritis and colitis, unspecified (principal); R50.2 Drug induced fever
CPT/HCPCS: 36415; 71260; 74177; 80048; 80076; 81001; 82550; 83605; 83735; 85025; 87040; 87631; 99284; 99285; Q9967

== ENCOUNTER 2023-05-16 10:36 | Outpatient (RCR) | payer MEDICARE, BC, SELFPAY ==
[2023-05-08] MEDS: DAPTOmycin 50 MG/ML inj 500 MG IVP (10:47)
--- NOTE | 2023-05-08 11:12 | PC.NURSE ---
infusion completed, patient tolerated well. IV in right FA patent and SL. VSS.
[2023-05-09 09:00] VITALS: BP 95/64; PULSE 94; RESP 18; TEMP 36.6; O2SAT 99
[2023-05-09] MEDS: DAPTOmycin 50 MG/ML inj 500 MG IVP (09:14)
[2023-05-10] MEDS: DAPTOmycin 50 MG/ML inj 500 MG IVP (09:05)
[2023-05-11 09:05] VITALS: BP 83/60; PULSE 91; RESP 18; TEMP 36.4; O2SAT 97
[2023-05-11] MEDS: DAPTOmycin 50 MG/ML inj 500 MG IVP (09:16)
[2023-05-12] MEDS: DAPTOmycin 50 MG/ML inj 500 MG IVP (09:05)
[2023-05-12 09:12] LABS: Basophils Absolute Auto 0.03 K/uL (0.00-0.30); Basophils Percent Auto 0.5 % (0.0-3.0); Eosinophils Absolute Auto 0.07 K/uL (0.00-0.50); Eosinophils Percent Auto 1.1 % (0.0-7.0); Hematocrit 34.6 % (37.0-53.0); Hemoglobin* 11.4 gm/dL (13.5-17.5); Immature Granulocytes Abs Auto 0.03 K/uL (0.00-0.30); Immature Granulocytes Pct Auto 0.5 %; Mean Corpuscular HGB Conc 33 gm/dL (32-36); Mean Corpuscular Hemoglobin 35 pg (26-34); Mean Corpuscular Volume 107 fL (80-100); Monocytes Percent Auto 10.4 % (0.0-11.0); Neutrophils Absolute Auto 4.67 K/uL (1.7-7.0); Neutrophils Percent Auto 71.5 % (42.0-72.0); Platelet Count* 174 K/uL (140-440); RDW Coefficient of Variation % 15.6 % (11.5-15.5); Red Blood Count 3.25 m/uL (4.30-5.90); White Blood Count* 6.52 K/uL (4.50-11.00)
[2023-05-12 09:13] LABS: Slide Review Reflex No
[2023-05-12 09:28] LABS: Albumin* 3.1 g/dL (3.3-5.0); Chloride* 106 mmol/L (96-114); Sodium* 135 mmol/L (135-149)
[2023-05-12 09:30] LABS: Creatinine* 0.7 mg/dL (0.5-1.5); Estimated Glomerular Filt Rate 97 ml/min
[2023-05-12 09:31] LABS: Alanine Aminotransferase* 64 U/L (4-50); Alkaline Phosphatase* 485 U/L (40-150); Anion Gap 3 mEq/L (7-15); Aspartate Amino Transferase* 88 U/L (12-35); Blood Urea Nitrogen* 15 mg/dL (7-30); Carbon Dioxide* 26 mmol/L (20-32); Creatine Kinase* 33 U/L (54-186); Glucose* 142 mg/dL (60-115); Total Protein* 6.7 g/dL (6.0-8.3)
[2023-05-12 09:32] LABS: Calcium* 8.7 mg/dL (8.4-10.6)
[2023-05-12 09:56] VITALS: BP 88/61; PULSE 67; RESP 18; TEMP 36.4; O2SAT 100
--- NOTE | 2023-05-12 09:58 | PC.NURSE ---
Patient's infusion completed and tolerated well. Patient denies N/V/SOB or pain. Patients IV on left FA intact and patent.
[2023-05-13 13:52] VITALS: BP 117/68; PULSE 77; RESP 18; TEMP 36.3; O2SAT 97
[2023-05-13] MEDS: DAPTOmycin 50 MG/ML inj 500 MG IVP (14:00)
--- NOTE | 2023-05-13 14:09 | PC.NURSE ---
outpatient infusin:1400 Pt ambulated onto the unit with spouse assist. No c/o pain, denies fever. Reported low BP of about 85 systolic at home and the clinic without symptoms. BP here WNL before and after infusion. All other VS stable. Reported slight sting at IV site with infusion. No redness, swelling, or drainage noted. Flushed easy. Pt ambulated off clinic in stable condition.
[2023-05-14] MEDS: DAPTOmycin 50 MG/ML inj 500 MG IVP (13:54)
[2023-05-14 14:00] VITALS: BP 92/60; PULSE 65; RESP 16; O2SAT 95
--- NOTE | 2023-05-14 15:13 | PC.NURSE ---
The patient arrived to the hospital @ 1345 with his for daptomycin through IV in L forearm. The patient tolerated this well with no issues. He will return tomorrow for another dose. IV was flushed prior to ABX administration. Tosha SUMMERS BSN
[2023-05-15 10:04] VITALS: BP 89/53; PULSE 89; RESP 20; TEMP 36.4; O2SAT 98
[2023-05-15] MEDS: DAPTOmycin 50 MG/ML inj 500 MG IVP (10:08)
[2023-05-15 10:14] VITALS: BP 93/58
--- NOTE | 2023-05-15 12:56 | PC.NURSE ---
Patient here for outpatient infusion. When his b/p was taken was noted for it to be low. Patient states Its always low I am on 5 medications to keep my blood pressure up. He did not have any symptoms with his low b/p. Medication infused without difficulty. Patient waited a couple of minutes and then ambulate back to the car with his .
[2023-05-16 10:50] VITALS: BP 88/61; PULSE 76; RESP 18; TEMP 36.3; O2SAT 93
[2023-05-16] MEDS: DAPTOmycin 50 MG/ML inj 500 MG IVP (10:55)
--- NOTE | 2023-05-16 11:11 | PC.NURSE ---
Infusion. pt has been very pleasant. his b/p was low. pt said he has a history of this. He is not symptomatic. IV med was infused without difficulty. SL flushed with no problems. pt and where very happy with cares and happy to be done with infusions. SL was d/c intact and pt left with his .
== END 2023-08-12 23:59 | disposition home or self-care (01) ==
LOC: MS OUT 10:36
PROVIDERS: PCP Family Medicine; Visit Provider Family Medicine
DX: D70.9 Neutropenia, unspecified (principal)
CPT/HCPCS: 36415; 71260; 74177; 80048; 80053; 80076; 81001; 82550; 83605; 83735; 85025; 87040; 87631; 96374; 96376; 99284; 99285; G0463; J0878; Q9967

== ENCOUNTER 2023-06-16 14:00 | Outpatient (RCR) | payer MEDICARE, BC, SELFPAY ==
--- NOTE | 2023-05-25 12:34 | URNOTE ---
Request received for authorization forCony ([id number]). Prior authorization is not required as services are based on medical necessity and follow Medicare guidelines.
--- NOTE | 2023-05-27 12:55 | ONC.NURNOTE ---
Received orders for pegfilgrastim to be given every two weeks following chemotherapy. Nursing discussed with [facility] and he would be due 06/02/2023, following infusion on 06/01/2023. Inorganic Chemist requested that [facility] send patient labs and treatment record from 06/01/2023, so that appropriate timing can be used for injection. LMOM for patient that insurance is covering injection and that they should call the office following his infusion next Tuesday to get approximate timing.
[2023-06-02 13:44] VITALS: BP 95/58; PULSE 78; RESP 16; TEMP 36.4; O2SAT 98
[2023-06-02] MEDS: PEGFILGRASTIM-JMDB (Fulphila) 6 MG/0.6 ML SUBCUT (13:48)
[2023-06-16 13:51] VITALS: BP 78/44; PULSE 86; RESP 16; TEMP 36.2; O2SAT 97
--- NOTE | 2023-06-16 13:52 | ONC.NURNOTE ---
Patients blood pressure 78/44. Patient takes Midodrine 5X per day. Patient stated this is a normal BP for him. Does have dizziness when he stands but him and his are careful and have been doing this for a while and his MD aware.
[2023-06-16] MEDS: PEGFILGRASTIM-JMDB (Fulphila) 6 MG/0.6 ML SUBCUT (14:07)
--- NOTE | 2023-07-06 16:21 | ONC.NURNOTE ---
Priscilla from [facility] called to state Marcial did not have his treatment today and will not need his neulasta scheduled. She stated he has had progression.
== END 2023-08-12 23:59 | disposition home or self-care (01) ==
LOC: CCIC 14:00
PROVIDERS: PCP Family Medicine; Referring Provider Family Medicine; Visit Provider Internal Medicine Hematology & Oncology
DX: C25.0 Malignant neoplasm of head of pancreas (principal); D70.9 Neutropenia, unspecified
CPT/HCPCS: 96372; Q5108

== ENCOUNTER 2023-06-22 09:48 | Emergency (ER) | payer MEDICARE, BC, SELFPAY ==
[2023-06-22] VITALS (39 sets, daily range): BP systolic 71–101; BP diastolic 39–56; PULSE 76–94; RESP 14–20; TEMP 36.2–37.7; O2SAT 93–99; BMI 26.5
--- NOTE | 2023-06-22 09:59 | ED_ITS ---
HPI - Weakness General Time Seen by Provider: 09:59 <Rupali Rothman MD - Last Filed: 06/23/23 14:03> Date Seen: 06/22/23 <Rupali Rothman MD - Last Filed: 06/23/23 14:03> Chief complaint: Weakness <Rupali Rothman MD - Last Filed: 06/23/23 14:03> Stated complaint: weakness <Rupali Rothman MD - Last Filed: 06/23/23 14:03> Time Seen by Provider: 06/22/23 09:59 <Rupali Rothman MD - Last Filed: 06/23/23 14:03> Source: patient, EMS, RN notes reviewed and old records reviewed <Rupali Rothman MD - Last Filed: 06/23/23 14:03> Mode of arrival: EMS <Rupali Rothman MD - Last Filed: 06/23/23 14:03> Limitations: no limitations <Rupali Rothman MD - Last Filed: 06/23/23 14:03> History of Present Illness HPI Narrative: This 73-year-old male is brought in by EMS for weakness. He had a sudden increase of weakness last night at home. Maybe had a slight cough. He notes no fevers or chills. States maybe slight sore throat. He does have a biliary drain in place for underlying recurrent pancreatic cancer. His blood pressure does usually run low in the systolics 80s to 90s. He is getting chemotherapy every 2 weeks, believe he follows in the [facility] for this. No specific source on questioning at this time. His initial diagnosis of pancreatic cancer was about 2 years ago with a Whipple on a cholecystectomy at the time. He unfortunately developed painless jaundice with finding of recurrent pancreatic cancer. He is on Abraxane in gemcitabine from my prior note, do not know if this regimen has change but it does not sound like it. He did have sepsis and had Clostridium perfringens on blood cultures. He was hospitalized for this in April. Com pleted a course of daptomycin and Flagyl. <Rupali Rothman MD - Last Filed: 06/23/23 14:03> Complaint: generalized weakness <Rupali Rothman MD - Last Filed: 06/23/23 14:03> Related Data Home medications: Home Medications Medication Instructions Recorded Confirmed aspirin 81 mg capsule 81 mg PO DAILY 05/02/23 06/22/23 colchicine 0.6 mg capsule 0.6 mg PO DAILY PRN 05/02/23 06/22/23 gabapentin 100 mg capsule 300 mg PO HS 05/02/23 06/22/23 lidocaine 5 % topical patch 1 patch topical Q24H 05/02/23 06/22/23 [id number] 3 cap PO TIDWM 05/02/23 06/22/23 36,000-114,000-180,000 unit capsule,delay rel (Creon) magnesium oxide 400 mg (241.3 mg 400 mg PO BID 05/02/23 06/22/23 magnesium) tablet melatonin 3 mg capsule 3 mg PO HS 05/02/23 06/22/23 metoclopramide HCl 10 mg tablet 10 mg PO Q6H PRN 05/02/23 06/23/23 (Reglan) midodrine 10 mg tablet 10 mg PO 5XD 05/02/23 06/22/23 pantoprazole 40 mg tablet,delayed 40 mg PO DAILY 05/02/23 06/22/23 release polyethylene glycol 3350 17 17 g PO DAILY PRN 05/02/23 06/22/23 gram/dose oral powder prochlorperazine maleate 10 mg 10 mg PO Q6H PRN nausea 05/02/23 06/22/23 tablet sennosides 8.6 mg tablet 8.6 mg PO DAILY 05/02/23 06/22/23 sildenafil 100 mg tablet 100 mg PO DAILY PRN intercourse 05/02/23 06/22/23 trazodone 50 mg tablet 50 mg PO HS PRN 05/02/23 06/22/23 <Rupali Rothman MD - Last Filed: 06/23/23 14:03> Allergies/Adverse reactions: Allergies Allergy/AdvReac Type Severity Reaction Status Date / Time No Known Drug Allergies Allergy Verified 06/22/23 13:07 <Rupali Rothman MD - Last Filed: 06/23/23 14:03> Review of Systems Status of ROS: Reports: 6 or more systems reviewed and unremarkable except as noted in History and below <Rupali Rothman MD - Last Filed: 06/23/23 14:03> 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 Lives with Maritza (medical decision maker if needed), 2 adult children in [place]. No current smoking, no alcohol use. Active daily. Requests full code status. What is your current living situation?: I presently have a place to live Problems where you live: no known problems Problems where you live details: NA In the past 12 months, utilities in danger of being shut off: no In past 12 months, lack of transportation kept you from medical appts, meetings, work, or getting things needed for daily living: no In the past 12 mos, have been you worried that your food would run out before you had money to buy more?: never true In the past 12 mos, the food you bought just didn't last and you didn't have money to buy more?: never true Highest level of school completed/degree received: Associate degree: academic program Smoking Status: Never smoker Do you use any of these nicotine containing products: None Second hand tobacco smoke exposure: No How often do you have a drink containing alcohol: never How often do you have six or more drinks on one occasion: Never AUDIT-C Alcohol total score: 0 Non-prescribed substance use: denies use Caffeine: Yes (Rare) How often does anyone, including family, friends and others, physically hurt you : never How often does anyone, including family, friends and others, insult or talk down to you: never How often does anyone, including family, friends and others, threaten you with harm: never How often does anyone, including family, friends and others, scream or curse at you: never service: No <Rupali Rothman MD - Last Filed: 06/23/23 14:03> Exam Const: Vital Signs, click to edit/add: Vital Signs - 24 hr 06/23/23 00:03 06/23/23 00:03 06/23/23 00:31 Temperature Pulse Rate Respiratory Rate Blood Pressure 91/67 91/67 92/52 L Pulse Oximetry 06/23/23 01:01 06/23/23 01:32 06/23/23 02:02 Temperature Pulse Rate 65 Respiratory Rate 16 Blood Pressure 92/60 90/55 L 83/48 L Pulse Oximetry 06/23/23 02:32 06/23/23 03:02 06/23/23 03:32 Temperature Pulse Rate Respiratory Rate Blood Pressure 82/52 L 91/47 L 95/58 L Pulse Oximetry 06/23/23 04:02 06/23/23 04:32 06/23/23 05:02 Temperature 98.3 F Pulse Rate 65 Respiratory Rate 16 Blood Pressure 99/80 98/57 L 92/47 L Pulse Oximetry 96 06/23/23 05:32 06/23/23 06:02 06/23/23 06:32 Temperature Pulse Rate 64 Respiratory Rate 14 Blood Pressure 95/54 L 84/54 L 93/56 L Pulse Oximetry 96 06/23/23 07:02 06/23/23 07:32 06/23/23 08:01 Temperature Pulse Rate Respiratory Rate Blood Pressure 96/56 L 96/52 L 99/58 L Pulse Oximetry 06/23/23 10:49 06/23/23 11:02 06/23/23 11:50 Temperature Pulse Rate Respiratory Rate Blood Pressure 93/65 98/50 L 85/47 L Pulse Oximetry 06/23/23 12:22 06/23/23 12:32 06/23/23 14:32 Temperature Pulse Rate Respiratory Rate Blood Pressure 97/65 92/58 L 102/67 Pulse Oximetry 06/23/23 15:02 06/23/23 16:07 06/23/23 16:32 Temperature Pulse Rate Respiratory Rate Blood Pressure 102/59 L 97/53 L 90/57 L Pulse Oximetry 06/23/23 17:02 06/23/23 17:32 Temperature Pulse Rate Respiratory Rate Blood Pressure 90/55 L 95/60 Pulse Oximetry This 73-year-old male is alert, interactive but sleepy. He is easily arousable. Very pleasant. Pupils equal round, conjugate gaze, do since he has some scleral icterus. His skin looks jaundice, note no rash. Oropharynx slightly dry mucosa but no exudates or erythema. Speech is normal. Neck is thin without any masses. Lungs are clear without wheezing or crackles. CV regular rate and rhythm, no murmur. Abdomen is soft, no rebound or guarding, no distension. He has no lower extremity edema. Is globally weak but no focal neurologic deficit noted. <Rupali Rothman MD - Last Filed: 06/23/23 14:03> Vital Signs, click to edit/add: Vital Signs - 24 hr 06/23/23 00:03 06/23/23 00:03 06/23/23 00:31 Temperature Pulse Rate Respiratory Rate Blood Pressure 91/67 91/67 92/52 L Pulse Oximetry 06/23/23 01:01 06/23/23 01:32 06/23/23 02:02 Temperature Pulse Rate 65 Respiratory Rate 16 Blood Pressure 92/60 90/55 L 83/48 L Pulse Oximetry 06/23/23 02:32 06/23/23 03:02 06/23/23 03:32 Temperature Pulse Rate Respiratory Rate Blood Pressure 82/52 L 91/47 L 95/58 L Pulse Oximetry 06/23/23 04:02 06/23/23 04:32 06/23/23 05:02 Temperature 98.3 F Pulse Rate 65 Respiratory Rate 16 Blood Pressure 99/80 98/57 L 92/47 L Pulse Oximetry 96 06/23/23 05:32 06/23/23 06:02 06/23/23 06:32 Temperature Pulse Rate 64 Respiratory Rate 14 Blood Pressure 95/54 L 84/54 L 93/56 L Pulse Oximetry 96 06/23/23 07:02 06/23/23 07:32 06/23/23 08:01 Temperature Pulse Rate Respiratory Rate Blood Pressure 96/56 L 96/52 L 99/58 L Pulse Oximetry 06/23/23 10:49 06/23/23 11:02 06/23/23 11:50 Temperature Pulse Rate Respiratory Rate Blood Pressure 93/65 98/50 L 85/47 L Pulse Oximetry 06/23/23 12:22 06/23/23 12:32 06/23/23 14:32 Temperature Pulse Rate Respiratory Rate Blood Pressure 97/65 92/58 L 102/67 Pulse Oximetry 06/23/23 15:02 06/23/23 16:07 06/23/23 16:32 Temperature Pulse Rate Respiratory Rate Blood Pressure 102/59 L 97/53 L 90/57 L Pulse Oximetry 06/23/23 17:02 06/23/23 17:32 Temperature Pulse Rate Respiratory Rate Blood Pressure 90/55 L 95/60 Pulse Oximetry <Bud Banks MD - Last Filed: 06/23/23 13:55> Vital Signs, click to edit/add: Vital Signs - 24 hr 06/23/23 00:03 06/23/23 00:03 06/23/23 00:31 Temperature Pulse Rate Respiratory Rate Blood Pressure 91/67 91/67 92/52 L Pulse Oximetry 06/23/23 01:01 06/23/23 01:32 06/23/23 02:02 Temperature Pulse Rate 65 Respiratory Rate 16 Blood Pressure 92/60 90/55 L 83/48 L Pulse Oximetry 06/23/23 02:32 06/23/23 03:02 06/23/23 03:32 Temperature Pulse Rate Respiratory Rate Blood Pressure 82/52 L 91/47 L 95/58 L Pulse Oximetry 06/23/23 04:02 06/23/23 04:32 06/23/23 05:02 Temperature 98.3 F Pulse Rate 65 Respiratory Rate 16 Blood Pressure 99/80 98/57 L 92/47 L Pulse Oximetry 96 06/23/23 05:32 04/18/24 06:02 06/23/23 06:32 Temperature Pulse Rate 64 Respiratory Rate 14 Blood Pressure 95/54 L 84/54 L 93/56 L Pulse Oximetry 96 06/23/23 07:02 06/23/23 07:32 06/23/23 08:01 Temperature Pulse Rate Respiratory Rate Blood Pressure 96/56 L 96/52 L 99/58 L Pulse Oximetry 06/23/23 10:49 06/23/23 11:02 06/23/23 11:50 Temperature Pulse Rate Respiratory Rate Blood Pressure 93/65 98/50 L 85/47 L Pulse Oximetry 06/23/23 12:22 06/23/23 12:32 06/23/23 14:32 Temperature Pulse Rate Respiratory Rate Blood Pressure 97/65 92/58 L 102/67 Pulse Oximetry 06/23/23 15:02 06/23/23 16:07 06/23/23 16:32 Temperature Pulse Rate Respiratory Rate Blood Pressure 102/59 L 97/53 L 90/57 L Pulse Oximetry 06/23/23 17:02 06/23/23 17:32 Temperature Pulse Rate Respiratory Rate Blood Pressure 90/55 L 95/60 Pulse Oximetry <Jessi Rodríguez MD - Last Filed: 06/23/23 23:56> Documenting provider has reviewed patient's vital signs: yes <Rupali Rothman MD - Last Filed: 06/23/23 14:03> Course Course ED Course: This 73-year-old male with underlying recurrent pancreatic cancer on chemotherapy is presenting with weakness. He has had no GI losses such as nausea vomiting. Maybe slightly cough. Obviously infectious etiology in current early sepsis need to be considered. There could be electrolyte changes. He will be on cardiac monitoring, pulse oximetry. He states his port was taken out when he had the clostridial min fraction. Need to establish an IV. EMS started 500 mL of normal saline, will give him another L based on his prior weight he would need 2580 mL for a 30 mL/kilos bolus. It is likely he has lost weight looking at him. Will see if we can get an updated weight. Will obtain blood cultures, full complement of labs. Will get a portable chest x-ray to start. May need more advanced imaging. <Rupali Rothman MD - Last Filed: 06/23/23 14:03> Reevaluation(s) Time of Reevaluation #1: 11:38 <Rupali Rothman MD - Last Filed: 06/23/23 14:03> Reevaluation #1: Patient's hemoglobin has come back at 7.1 and platelets 52819. He is not having any active bleeding. I have ordered type and screen at this time. He has had a temperature of 100? F. Patient is likely septic again. Will be doing a chest abdomen pelvis. I have ordered vancomycin, awaiting urinalysis. Will need further antibiotics, likely initiate Zosyn or cephalosporin. Will talk to referring institution, have paged out the hospitalist at [facility]. Patient and his are aware. We are continuing with the 2500 mL fluid loading for sepsis but need to watch this patient closely given his chest x-ray findings. With chest CT, we may find that this is actually could be pneumonia, await this imaging and watch patient closely. <Rupali Rothman MD - Last Filed: 06/23/23 14:03> Time of Reevaluation #2: 16:41 <Rupali Rothman MD - Last Filed: 06/23/23 14:03> Reevaluation #2: Patient actually feels better after IV fluids. Will order maintenance IV fluids. He did get up to the chair, 8. He has received 1 unit packed red blood cells. He received initial vancomycin and Zosyn. I have written for ongoing vancomycin and Zosyn and pharmacy will adjust to appropriate timing. Still awaiting bed placement/acceptance. <Rupali Rothman MD - Last Filed: 06/23/23 14:03> Time of Reevaluation #3: 02:15 <Jessi Rodríguez MD - Last Filed: 06/23/23 23:56> Reevaluation #3: dr. Rodríguez- I noticed that the patient's blood pressures had been trending at his baseline, it looked like he had been feeling better after receiving the blood transfusion. I reviewed his CT scan and we did not appreciate any abscess or drainable type of infection. I a desire to speak with the overnight hospitalist on possibly admitting this patient I and continuing on IV antibiotics and seeing how he responded since his lactate is improving, blood pressures have improved, etc.. The overnight hospitalist declines admission, citing that he likely has an obstructive process from his pancreatic cancer that is leading to sepsis, especially with a history of Clostridium within the last couple of months. He should be admitted in a facility that has the capability to do an ERCP if warranted. Admission declined by our team at this time. Will continue on vancomycin and Zosyn, continue IV fluids and await contact with [facility]. <Jessi Rodríguez MD - Last Filed: 06/23/23 23:56> Additional Reevaluation(s): 06/23/23 930am This 73-year-old male is seeing this morning after boarding in the ER overnight, awaiting transfer to [facility] for probable early sepsis in the setting of recurrent pancreatic cancer undergoing chemotherapy. His weakness that was his presenting complaint has improved. He has had no further fever. He is eating, had a good bowel movement this morning. No new symptoms. No increased abdominal pain. He is receiving vancomycin and Zosyn. He does have a biliary stent in. There is no increased pain at the site, draining biliary fluid. Vitals reviewed, afebrile. Looks to be less jaundiced today, alert, interactive, sitting up in the chair. CV regular rate and rhythm no murmur. Lungs are clear, good air entry, no wheezing or crackles. Biliary drain site along the right flank area looks normal. Abdomen is soft, nontender. No lower extremity edema. Hemoglobin at 9.1 after 1 unit packed red blood cell transfusion yesterday, improved from 7.1. Platelet count up to 48,000. White blood count is elevated today at 15,330, was normal at 5460 yesterday. Electrolytes are stable. Lactate still running mildly up at 2.3 but improved from admission of 3.7. Unfortunately total bilirubin is actually up at 3.5, direct at 1.7. AST elevated at 66, ALT 52, alkaline phosphatase 329. Overall these liver functions are stably elevated. Note, patient sees Dr. García at [facility] and follows [facility], [place] office. Weakness, probable early sepsis: Source unknown, initial review of blood cultures should happen today. Patient's white count is elevating, lactate mildly elevated but he overall feels better. Continue to monitor, will continue to try to work on transfer. Patient has low blood pressures baseline with systolics of 80s to 90s. Is on midodrine for this. Pancreatic cancer receiving chemotherapy with anemia and thrombocytopenia: Continue to monitor his CBCs. He does not need a transfusion today, the 1 unit packed red blood cells has his hemoglobin into the 9 range, platelets rebounded back up to 48 without intervention. Gout, orthostatic hypotension, pharmacy doing med rec review, will try to initiate appropriate medicines for the patient while here. Will certainly not have him on an 81 mg aspirin with low platelets. <Rupali Rothman MD - Last Filed: 06/23/23 14:03> Consultations Consultation #1: Spoke with the hospitalist Dr. Sellers, patient is 1st on the wait list, unknown transfer time at this point. We discussed vanco and Zosyn for antibiotics. Will contact them if he is worsening, may need to get recommendations from Infectious Disease as to other antibiotics if patient is worsening. Will transfuse 1 unit packed red blood cells given his hemoglobin is 7.1. His platelets are 33,000, not actively bleeding and not anticipating surgical procedure at this point. Will continue to follow. She is aware that I have ordered a chest abdomen pelvis CT. <Rupali Rothman MD - Last Filed: 06/23/23 14:03> Time: 11:49 <Rupali Rothman MD - Last Filed: 06/23/23 14:03> Consultation #2: Did talk to Dr. García, he states Interventional Radiology would take care of the biliary to if there is any need. He has nothing to add with this patient. <Rupali Rothman MD - Last Filed: 06/23/23 14:03> Time: 12:04 <Rupali Rothman MD - Last Filed: 06/23/23 14:03> Consultation #3: There is capacity at [facility], spoke with Dr. Rogers the hospitalist. He accepts care of this patient. Agrees with transfer but there will be a 2-4 hour bed delay. Patient is updated on this. <Rupali Tse MD - Last Filed: 06/23/23 14:03> Time: 13:29 <Rupali Rothman MD - Last Filed: 06/23/23 14:03> Vital Signs Vital signs: Initial Vital Signs Temperature 100 F H 06/22/23 09:54 Temperature Source Temporal Artery Scan 06/22/23 09:54 Pulse Rate 94 06/22/23 09:54 Respiratory Rate 14 06/22/23 09:54 Blood Pressure 84/50 L 06/22/23 09:54 Blood Pressure Mean 61 L 06/22/23 09:54 Blood Pressure Position Semi-Fowlers 06/22/23 09:54 Pulse Oximetry 94 06/22/23 09:54 Oxygen Delivery Method Room Air 06/22/23 09:54 Vital Signs Temperature 100 F H 06/22/23 09:54 Pulse Rate 94 06/22/23 09:54 Respiratory Rate 14 06/22/23 09:54 Blood Pressure 84/50 L 06/22/23 09:54 Pulse Oximetry 94 06/22/23 09:54 Oxygen Delivery Method Room Air 06/22/23 09:54 Temperature 98.3 F 06/23/23 04:32 Pulse Rate 64 06/23/23 06:32 Respiratory Rate 14 06/23/23 06:32 Blood Pressure 95/60 06/23/23 17:32 Pulse Oximetry 96 06/23/23 06:32 Oxygen Delivery Method Room Air 06/22/23 09:54 <Rupali Rothman MD - Last Filed: 06/23/23 14:03> Initial Vital Signs Temperature 100 F H 06/22/23 09:54 Temperature Source Temporal Artery Scan 06/22/23 09:54 Pulse Rate 94 06/22/23 09:54 Respiratory Rate 14 06/22/23 09:54 Blood Pressure 84/50 L 06/22/23 09:54 Blood Pressure Mean 61 L 06/22/23 09:54 Blood Pressure Position Semi-Fowlers 06/22/23 09:54 Pulse Oximetry 94 06/22/23 09:54 Oxygen Delivery Method Room Air 06/22/23 09:54 Vital Signs Temperature 100 F H 06/22/23 09:54 Pulse Rate 94 06/22/23 09:54 Respiratory Rate 14 06/22/23 09:54 Blood Pressure 84/50 L 06/22/23 09:54 Pulse Oximetry 94 06/22/23 09:54 Oxygen Delivery Method Room Air 06/22/23 09:54 Temperature 98.3 F 06/23/23 04:32 Pulse Rate 64 06/23/23 06:32 Respiratory Rate 14 06/23/23 06:32 Blood Pressure 95/60 06/23/23 17:32 Pulse Oximetry 96 06/23/23 06:32 Oxygen Delivery Method Room Air 06/22/23 09:54 <Bud Banks MD - Last Filed: 06/23/23 13:55> Initial Vital Signs Temperature 100 F H 06/22/23 09:54 Temperature Source Temporal Artery Scan 06/22/23 09:54 Pulse Rate 94 06/22/23 09:54 Respiratory Rate 14 06/22/23 09:54 Blood Pressure 84/50 L 06/22/23 09:54 Blood Pressure Mean 61 L 06/22/23 09:54 Blood Pressure Position Semi-Fowlers 06/22/23 09:54 Pulse Oximetry 94 06/22/23 09:54 Oxygen Delivery Method Room Air 06/22/23 09:54 Vital Signs Temperature 100 F H 06/22/23 09:54 Pulse Rate 94 06/22/23 09:54 Respiratory Rate 14 06/22/23 09:54 Blood Pressure 84/50 L 06/22/23 09:54 Pulse Oximetry 94 06/22/23 09:54 Oxygen Delivery Method Room Air 06/22/23 09:54 Temperature 98.3 F 06/23/23 04:32 Pulse Rate 64 06/23/23 06:32 Respiratory Rate 14 06/23/23 06:32 Blood Pressure 95/60 06/23/23 17:32 Pulse Oximetry 96 06/23/23 06:32 Oxygen Delivery Method Room Air 06/22/23 09:54 <Jessi Rodríguez MD - Last Filed: 06/23/23 23:56> Medications Administered Medications: Discontinued Medications Generic Name Dose Route Start Last Admin Trade Name Freq PRN Reason Stop Dose Admin Lipase/Protease/Amylase 3 cap 06/23/23 12:00 06/23/23 14:00 Pancrealipase (12,38,60) Cap PO 3 cap TIDWM MIKE Administration Gabapentin 300 mg 06/22/23 19:29 06/22/23 20:18 Gabapentin 300 Mg Capsule PO 06/22/23 19:30 300 mg ONCE ONE Administration Sodium Chloride 1,000 mls @ 500 mls/hr 06/22/23 10:05 06/22/23 14:32 0.9 % Sodium Chloride 1000 Ml IV 06/22/23 12:04 Infused .Q2H MIKE Infusion Lactated Ringer's 1,000 mls @ 500 mls/hr 06/22/23 11:14 06/22/23 18:13 Lactated Ringers 1000 Ml IV 06/22/23 13:13 Infused .Q2H MIKE Infusion Vancomycin HCl 1,750 mg/ 517.5 mls @ 258.75 mls/hr 06/22/23 12:00 06/22/23 14:48 Sodium Chloride IVPB 06/22/23 13:59 Infused ONCE ONE Infusion Protocol Piperacillin Sod/Tazobactam 100 mls @ 200 mls/hr 06/22/23 12:00 06/22/23 15:28 Sod 3.375 gm/ Sodium Chloride IVPB 06/22/23 12:29 Infused ONCE ONE Infusion Piperacillin Sod/Tazobactam 100 mls @ 200 mls/hr 06/22/23 21:00 06/23/23 16:00 Sod 3.375 gm/ Sodium Chloride IVPB 200 mls/hr Q6H MIKE Administration Vancomycin HCl 1,500 mg/ 515 mls @ 343.333 mls/hr 06/23/23 12:00 06/23/23 14:06 Sodium Chloride IVPB Infused Q24H MIKE Infusion Protocol Potassium Chloride/Sodium Chloride 1,000 mls @ 100 mls/hr 06/22/23 16:40 06/23/23 17:15 0.9 % Sodium Ch + Kcl 20 Meq/L IV 100 mls/hr .Q10H MIKE Administration Magnesium Oxide 400 mg 06/23/23 21:00 06/23/23 11:10 Magnesium Oxide 400 Mg Tablet PO 400 mg BID MIKE Administration Midodrine 10 mg 06/23/23 10:00 06/23/23 11:10 Midodrine Hcl 5 Mg Tablet PO 10 mg DIRECTED MIKE Administration Sodium Chloride 250 ml 06/22/23 11:54 06/22/23 14:31 0.9 % Sodium Chloride 250 Ml IV 06/23/23 23:59 250 ml ONCE PRN Administration <Rupali Rothman MD - Last Filed: 06/23/23 14:03> Discontinued Medications Generic Name Dose Route Start Last Admin Trade Name Freq PRN Reason Stop Dose Admin Lipase/Protease/Amylase 3 cap 06/23/23 12:00 06/23/23 14:00 Pancrealipase (12,38,60) Cap PO 3 cap TIDWM MIKE Administration Gabapentin 300 mg 06/22/23 19:29 06/22/23 20:18 Gabapentin 300 Mg Capsule PO 06/22/23 19:30 300 mg ONCE ONE Administration Sodium Chloride 1,000 mls @ 500 mls/hr 06/22/23 10:05 06/22/23 14:32 0.9 % Sodium Chloride 1000 Ml IV 06/22/23 12:04 Infused .Q2H MIKE Infusion Lactated Ringer's 1,000 mls @ 500 mls/hr 06/22/23 11:14 06/22/23 18:13 Lactated Ringers 1000 Ml IV 06/22/23 13:13 Infused .Q2H MIKE Infusion Vancomycin HCl 1,750 mg/ 517.5 mls @ 258.75 mls/hr 06/22/23 12:00 06/22/23 14:48 Sodium Chloride IVPB 06/22/23 13:59 Infused ONCE ONE Infusion Protocol Piperacillin Sod/Tazobactam 100 mls @ 200 mls/hr 06/22/23 12:00 06/22/23 15:28 Sod 3.375 gm/ Sodium Chloride IVPB 06/22/23 12:29 Infused ONCE ONE Infusion Piperacillin Sod/Tazobactam 100 mls @ 200 mls/hr 06/22/23 21:00 06/23/23 16:00 Sod 3.375 gm/ Sodium Chloride IVPB 200 mls/hr Q6H MIKE Administration Vancomycin HCl 1,500 mg/ 515 mls @ 343.333 mls/hr 06/23/23 12:00 06/23/23 14:06 Sodium Chloride IVPB Infused Q24H MIKE Infusion Protocol Potassium Chloride/Sodium Chloride 1,000 mls @ 100 mls/hr 06/22/23 16:40 06/23/23 17:15 0.9 % Sodium Ch + Kcl 20 Meq/L IV 100 mls/hr .Q10H MIKE Administration Magnesium Oxide 400 mg 06/23/23 21:00 06/23/23 11:10 Magnesium Oxide 400 Mg Tablet PO 400 mg BID MIKE Administration Midodrine 10 mg 06/23/23 10:00 06/23/23 11:10 Midodrine Hcl 5 Mg Tablet PO 10 mg DIRECTED MIKE Administration Sodium Chloride 250 ml 06/22/23 11:54 06/22/23 14:31 0.9 % Sodium Chloride 250 Ml IV 06/23/23 23:59 250 ml ONCE PRN Administration <Bud Banks MD - Last Filed: 06/23/23 13:55> Discontinued Medications Generic Name Dose Route Start Last Admin Trade Name Freq PRN Reason Stop Dose Admin Lipase/Protease/Amylase 3 cap 06/23/23 12:00 06/23/23 14:00 Pancrealipase (12,38,60) Cap PO 3 cap TIDWM MIKE Administration Gabapentin 300 mg 06/22/23 19:29 06/22/23 20:18 Gabapentin 300 Mg Capsule PO 06/22/23 19:30 300 mg ONCE ONE Administration Sodium Chloride 1,000 mls @ 500 mls/hr 06/22/23 10:05 06/22/23 14:32 0.9 % Sodium Chloride 1000 Ml IV 06/22/23 12:04 Infused .Q2H MIKE Infusion Lactated Ringer's 1,000 mls @ 500 mls/hr 06/22/23 11:14 06/22/23 18:13 Lactated Ringers 1000 Ml IV 06/22/23 13:13 Infused .Q2H MIKE Infusion Vancomycin HCl 1,750 mg/ 517.5 mls @ 258.75 mls/hr 06/22/23 12:00 06/22/23 14:48 Sodium Chloride IVPB 06/22/23 13:59 Infused ONCE ONE Infusion Protocol Piperacillin Sod/Tazobactam 100 mls @ 200 mls/hr 06/22/23 12:00 06/22/23 15:28 Sod 3.375 gm/ Sodium Chloride IVPB 06/22/23 12:29 Infused ONCE ONE Infusion Piperacillin Sod/Tazobactam 100 mls @ 200 mls/hr 06/22/23 21:00 06/23/23 16 :00 Sod 3.375 gm/ Sodium Chloride IVPB 200 mls/hr Q6H MIKE Administration Vancomycin HCl 1,500 mg/ 515 mls @ 343.333 mls/hr 06/23/23 12:00 04/18/24 14:06 Sodium Chloride IVPB Infused Q24H MIKE Infusion Protocol Potassium Chloride/Sodium Chloride 1,000 mls @ 100 mls/hr 06/22/23 16:40 06/23/23 17:15 0.9 % Sodium Ch + Kcl 20 Meq/L IV 100 mls/hr .Q10H MIKE Administration Magnesium Oxide 400 mg 06/23/23 21:00 06/23/23 11:10 Magnesium Oxide 400 Mg Tablet PO 400 mg BID MIKE Administration Midodrine 10 mg 06/23/23 10:00 06/23/23 11:10 Midodrine Hcl 5 Mg Tablet PO 10 mg DIRECTED MIKE Administration Sodium Chloride 250 ml 06/22/23 11:54 06/22/23 14:31 0.9 % Sodium Chloride 250 Ml IV 06/23/23 23:59 250 ml ONCE PRN Administration <Jessi Rodríguez MD - Last Filed: 06/23/23 23:56> MDM - Weakness MDM Narrative Medical decision making narrative: Jocelyn - inherited Mr. Rain at change of shift. Suspected of sepsis. Recently treated for same. Has received unit of blood for hemoglobin of 7.1. History of pancreatic cancer. Is also noted to be thrombocytopenic today. Chronically somewhat hypotensive. Latest blood pressure 97/56. Does receive chemotherapy through care with [facility]. On waiting last with [facility] and anticipating transfer. Has received per report approximally 3500 mL of IV fluid. Zosyn and vancomycin have been given. Scheduled antibiotics Over shift vitals have been normal I believe for Mr. Rain with usual slightly lower blood pressures. Might be prudent to place a 2nd IV. Lactate improving. Pending transport yet to [facility]. Handing off atchange of shift. <Bud Banks MD - Last Filed: 06/23/23 13:55> Lab Data Attestation: I reviewed the patient's lab results. <Rupali Rothman MD - Last Filed: 06/23/23 14:03> Labs: Lab Results 06/22/23 06/22/23 06/22/23 Range/Units 10:05 10:36 14:20 WBC 5.46 (4.50-11.00) K/uL RBC 1.97 L (4.30-5.90) m/uL Hgb 7.1 L* (13.5-17.5) gm/dL Hct 21.3 L (37.0-53.0) % MCV 108 H (80-100) fL MCH 36 H (26-34) pg MCHC 33 (32-36) gm/dL RDW Coeff of Fidelina 16.2 H (11.5-15.5) % Plt Count 33 L* (140-440) K/uL Neut % (Auto) 81.6 H (42.0-72.0) % Lymph % (Auto) 4.6 L (20-44) % [place] % (Auto) 12.5 H (0.0-11.0) % Eos % (Auto) 0.0 (0.0-7.0) % Baso % (Auto) 0.2 (0.0-3.0) % Neut # (Auto) 4.50 (1.7-7.0) K/uL Lymph # (Auto) 0.30 L (0.90-2.90) K/uL [place] # (Auto) 0.70 (0.00-0.90) K/UL Eos # (Auto) 0.00 (0.00-0.50) K/uL Baso # (Auto) 0.01 (0.00-0.30) K/uL Abs Immat Gran (auto) 0.06 (0.00-0.30) K/uL Imm/Tot Granulo (auto) 1.1 % Diff Slide Review Acceptable Review (Acceptable) Sodium 130 L (135-149) mmol/L Potassium 3.7 (3.6-5.1) mmol/L Chloride 105 (96-114) mmol/L Carbon Dioxide 23 (20-32) mmol/L Anion Gap 2 L (7-15) mEq/L BUN 17 (7-30) mg/dL Creatinine 1.0 (0.5-1.5) mg/dL Estimated Creat Clear 70.07 Estimated GFR 79 ml/min Glucose 121 H (60-115) mg/dL Lactate 3.7 H (0.5-1.9) mmol/L Calcium 7.6 L (8.4-10.6) mg/dL Magnesium 1.7 (1.5-2.6) mg/dL Total Bilirubin 3.1 H (0.1-1.5) mg/dL Direct Bilirubin 1.8 H (0.0-0.5) mg/dL AST 73 H (12-35) U/L ALT 51 H (4-50) U/L Alkaline Phosphatase 333 H (40-150) U/L Ammonia 38.0 H (13.1-30.0) umol/L Troponin I < 0.01 L (0.01-0.04) ng/mL C-Reactive Protein 4.7 H (0.5-1.0) mg/dL NT-Pro-B Natriuret Pep 969 pg/mL Total Protein 5.7 L (6.0-8.3) g/dL Albumin 2.3 L (3.3-5.0) g/dL Procalcitonin 29.20 H (<0.50) ng/mL Urine Color Eduarda A (Yellow) Urine Appearance Slightly Cloudy A (Clear) Urine pH 5.5 (5.0-8.5) Ur Specific Lindsey 1.010 (1.000-1.030) Urine Protein Negative (Negative) Urine Glucose (UA) Negative (Negative) Urine Ketones Negative (Negative) Urine Blood Negative (Negative) Urine Nitrite Negative (Negative) Urine Bilirubin 2+ A (Negative) Urine Urobilinogen 0.2 (0.2-1.0) Ur Leukocyte Esterase Negative (Negative) Urine RBC 0-2 (0-2) Urine WBC 0-2 (0-5) Ur Squamous Epith Cells None (None-Few) Urine Bacteria None (None) SARS-CoV-2 (PCR) Negative SARS-CoV-2 (Negative) Influenza Type A (PCR) Negative PCR FLU A (Negative) Influenza Type B (PCR) Negative PCR FLU B (Negative) RSV (PCR) Negative PCR RSV (Negative) Blood Type A Positive Antibody Screen NEGATIVE Crossmatch (AHG) See Detail 06/22/23 06/23/23 06/23/23 Range/Units 14:36 02:30 08:47 WBC 15.33 H (4.50-11.00) K/uL RBC 2.65 L (4.30-5.90) m/uL Hgb 9.1 L (13.5-17.5) gm/dL Hct 28.0 L (37.0-53.0) % MCV 106 H (80-100) fL MCH 34 (26-34) pg MCHC 33 (32-36) gm/dL RDW Coeff of Fidelina 19.7 H (11.5-15.5) % Plt Count 48 L* (140-440) K/uL Neut % (Auto) 82.6 H (42.0-72.0) % Lymph % (Auto) 6.3 L (20-44) % [place] % (Auto) 8.9 (0.0-11.0) % Eos % (Auto) 0.1 (0.0-7.0) % Baso % (Auto) 0.1 (0.0-3.0) % Neut # (Auto) 12.70 H (1.7-7.0) K/uL Lymph # (Auto) 1.00 (0.90-2.90) K/uL [place] # (Auto) 1.40 H (0.00-0.90) K/UL Eos # (Auto) 0.00 (0.00-0.50) K/uL Baso # (Auto) 0.00 (0.00-0.30) K/uL Abs Immat Gran (auto) 0.30 (0.00-0.30) K/uL Imm/Tot Granulo (auto) 2.0 % Diff Slide Review Acceptable Review (Acceptable) Sodium 134 L (135-149) mmol/L Potassium 3.6 (3.6-5.1) mmol/L Chloride 111 (96-114) mmol/L Carbon Dioxide 18 L (20-32) mmol/L Anion Gap 5 L (7-15) mEq/L BUN 18 (7-30) mg/dL Creatinine 0.7 (0.5-1.5) mg/dL Estimated Creat Clear 70.07 Estimated GFR 97 ml/min Glucose 94 (60-115) mg/dL Lactate 3.3 H 2.0 H 2.3 H (0.5-1.9) mmol/L Calcium 8.1 L (8.4-10.6) mg/dL Magnesium (1.5-2.6) mg/dL Total Bilirubin 3.5 H (0.1-1.5) mg/dL Direct Bilirubin 1.7 H (0.0-0.5) mg/dL AST 66 H (12-35) U/L ALT 52 H (4-50) U/L Alkaline Phosphatase 329 H (40-150) U/L Ammonia (13.1-30.0) umol/L Troponin I (0.01-0.04) ng/mL C-Reactive Protein (0.5-1.0) mg/dL NT-Pro-B Natriuret Pep pg/mL Total Protein 6.6 (6.0-8.3) g/dL Albumin 2.7 L (3.3-5.0) g/dL Procalcitonin (<0.50) ng/mL Urine Color (Yellow) Urine Appearance (Clear) Urine pH (5.0-8.5) Ur Specific Lindsey (1.000-1.030) Urine Protein (Negative) Urine Glucose (UA) (Negative) Urine Ketones (Negative) Urine Blood (Negative) Urine Nitrite (Negative) Urine Bilirubin (Negative) Urine Urobilinogen (0.2-1.0) Ur Leukocyte Esterase (Negative) Urine RBC (0-2) Urine WBC (0-5) Ur Squamous Epith Cells (None-Few) Urine Bacteria (None) SARS-CoV-2 (PCR) (Negative) Influenza Type A (PCR) (Negative) Influenza Type B (PCR) (Negative) RSV (PCR) (Negative) Blood Type Antibody Screen Crossmatch (AHG) <Rupali Rothman MD - Last Filed: 06/23/23 14:03> Lab Results 06/22/23 06/22/23 06/22/23 Range/Units 10:05 10:36 14:20 WBC 5.46 (4.50-11.00) K/uL RBC 1.97 L (4.30-5.90) m/uL Hgb 7.1 L* (13.5-17.5) gm/dL Hct 21.3 L (37.0-53.0) % MCV 108 H (80-100) fL MCH 36 H (26-34) pg MCHC 33 (32-36) gm/dL RDW Coeff of Fidelina 16.2 H (11.5-15.5) % Plt Count 33 L* (140-440) K/uL Neut % (Auto) 81.6 H (42.0-72.0) % Lymph % (Auto) 4.6 L (20-44) % [place] % (Auto) 12.5 H (0.0-11.0) % Eos % (Auto) 0.0 (0.0-7.0) % Baso % (Auto) 0.2 (0.0-3.0) % Neut # (Auto) 4.50 (1.7-7.0) K/uL Lymph # (Auto) 0.30 L (0.90-2.90) K/uL [place] # (Auto) 0.70 (0.00-0.90) K/UL Eos # (Auto) 0.00 (0.00-0.50) K/uL Baso # (Auto) 0.01 (0.00-0.30) K/uL Abs Immat Gran (auto) 0.06 (0.00-0.30) K/uL Imm/Tot Granulo (auto) 1.1 % Diff Slide Review Acceptable Review (Acceptable) Sodium 130 L (135-149) mmol/L Potassium 3.7 (3.6-5.1) mmol/L Chloride 105 (96-114) mmol/L Carbon Dioxide 23 (20-32) mmol/L Anion Gap 2 L (7-15) mEq/L BUN 17 (7-30) mg/dL Creatinine 1.0 (0.5-1.5) mg/dL Estimated Creat Clear 70.07 Estimated GFR 79 ml/min Glucose 121 H (60-115) mg/dL Lactate 3.7 H (0.5-1.9) mmol/L Calcium 7.6 L (8.4-10.6) mg/dL Magnesium 1.7 (1.5-2.6) mg/dL Total Bilirubin 3.1 H (0.1-1.5) mg/dL Direct Bilirubin 1.8 H (0.0-0.5) mg/dL AST 73 H (12-35) U/L ALT 51 H (4-50) U/L Alkaline Phosphatase 333 H (40-150) U/L Ammonia 38.0 H (13.1-30.0) umol/L Troponin I < 0.01 L (0.01-0.04) ng/mL C-Reactive Protein 4.7 H (0.5-1.0) mg/dL NT-Pro-B Natriuret Pep 969 pg/mL Total Protein 5.7 L (6.0-8.3) g/dL Albumin 2.3 L (3.3-5.0) g/dL Procalcitonin 29.20 H (<0.50) ng/mL Urine Color Eduarda A (Yellow) Urine Appearance Slightly Cloudy A (Clear) Urine pH 5.5 (5.0-8.5) Ur Specific Lindsey 1.010 (1.000-1.030) Urine Protein Negative (Negative) Urine Glucose (UA) Negative (Negative) Urine Ketones Negative (Negative) Urine Blood Negative (Negative) Urine Nitrite Negative (Negative) Urine Bilirubin 2+ A (Negative) Urine Urobilinogen 0.2 (0.2-1.0) Ur Leukocyte Esterase Negative (Negative) Urine RBC 0-2 (0-2) Urine WBC 0-2 (0-5) Ur Squamous Epith Cells None (None-Few) Urine Bacteria None (None) SARS-CoV-2 (PCR) Negative SARS-CoV-2 (Negative) Influenza Type A (PCR) Negative PCR FLU A (Negative) Influenza Type B (PCR) Negative PCR FLU B (Negative) RSV (PCR) Negative PCR RSV (Negative) Blood Type A Positive Antibody Screen NEGATIVE Crossmatch (AHG) See Detail 06/22/23 06/23/23 06/23/23 Range/Units 14:36 02:30 08:47 WBC 15.33 H (4.50-11.00) K/uL RBC 2.65 L (4.30-5.90) m/uL Hgb 9.1 L (13.5-17.5) gm/dL Hct 28.0 L (37.0-53.0) % MCV 106 H (80-100) fL MCH 34 (26-34) pg MCHC 33 (32-36) gm/dL RDW Coeff of Fidelina 19.7 H (11.5-15.5) % Plt Count 48 L* (140-440) K/uL Neut % (Auto) 82.6 H (42.0-72.0) % Lymph % (Auto) 6.3 L (20-44) % [place] % (Auto) 8.9 (0.0-11.0) % Eos % (Auto) 0.1 (0.0-7.0) % Baso % (Auto) 0.1 (0.0-3.0) % Neut # (Auto) 12.70 H (1.7-7.0) K/uL Lymph # (Auto) 1.00 (0.90-2.90) K/uL [place] # (Auto) 1.40 H (0.00-0.90) K/UL Eos # (Auto) 0.00 (0.00-0.50) K/uL Baso # (Auto) 0.00 (0.00-0.30) K/uL Abs Immat Gran (auto) 0.30 (0.00-0.30) K/uL Imm/Tot Granulo (auto) 2.0 % Diff Slide Review Acceptable Review (Acceptable) Sodium 134 L (135-149) mmol/L Potassium 3.6 (3.6-5.1) mmol/L Chloride 111 (96-114) mmol/L Carbon Dioxide 18 L (20-32) mmol/L Anion Gap 5 L (7-15) mEq/L BUN 18 (7-30) mg/dL Creatinine 0.7 (0.5-1.5) mg/dL Estimated Creat Clear 70.07 Estimated GFR 97 ml/min Glucose 94 (60-115) mg/dL Lactate 3.3 H 2.0 H 2.3 H (0.5-1.9) mmol/L Calcium 8.1 L (8.4-10.6) mg/dL Magnesium (1.5-2.6) mg/dL Total Bilirubin 3.5 H (0.1-1.5) mg/dL Direct Bilirubin 1.7 H (0.0-0.5) mg/dL AST 66 H (12-35) U/L ALT 52 H (4-50) U/L Alkaline Phosphatase 329 H (40-150) U/L Ammonia (13.1-30.0) umol/L Troponin I (0.01-0.04) ng/mL C-Reactive Protein (0.5-1.0) mg/dL NT-Pro-B Natriuret Pep pg/mL Total Protein 6.6 (6.0-8.3) g/dL Albumin 2.7 L (3.3-5.0) g/dL Procalcitonin (<0.50) ng/mL Urine Color (Yellow) Urine Appearance (Clear) Urine pH (5.0-8.5) Ur Specific Lindsey (1.000-1.030) Urine Protein (Negative) Urine Glucose (UA) (Negative) Urine Ketones (Negative) Urine Blood (Negative) Urine Nitrite (Negative) Urine Bilirubin (Negative) Urine Urobilinogen (0.2-1.0) Ur Leukocyte Esterase (Negative) Urine RBC (0-2) Urine WBC (0-5) Ur Squamous Epith Cells (None-Few) Urine Bacteria (None) SARS-CoV-2 (PCR) (Negative) Influenza Type A (PCR) (Negative) Influenza Type B (PCR) (Negative) RSV (PCR) (Negative) Blood Type Antibody Screen Crossmatch (AHG) <Bud Banks MD - Last Filed: 06/23/23 13:55> Lab Results 06/22/23 06/22/23 06/22/23 Range/Units 10:05 10:36 14:20 WBC 5.46 (4.50-11.00) K/uL RBC 1.97 L (4.30-5.90) m/uL Hgb 7.1 L* (13.5-17.5) gm/dL Hct 21.3 L (37.0-53.0) % MCV 108 H (80-100) fL MCH 36 H (26-34) pg MCHC 33 (32-36) gm/dL RDW Coeff of Fidelina 16.2 H (11.5-15.5) % Plt Count 33 L* (140-440) K/uL Neut % (Auto) 81.6 H (42.0-72.0) % Lymph % (Auto) 4.6 L (20-44) % [place] % (Auto) 12.5 H (0.0-11.0) % Eos % (Auto) 0.0 (0.0-7.0) % Baso % (Auto) 0.2 (0.0-3.0) % Neut # (Auto) 4.50 (1.7-7.0) K/uL Lymph # (Auto) 0.30 L (0.90-2.90) K/uL [place] # (Auto) 0.70 (0.00-0.90) K/UL Eos # (Auto) 0.00 (0.00-0.50) K/uL Baso # (Auto) 0.01 (0.00-0.30) K/uL Abs Immat Gran (auto) 0.06 (0.00-0.30) K/uL Imm/Tot Granulo (auto) 1.1 % Diff Slide Review Acceptable Review (Acceptable) Sodium 130 L (135-149) mmol/L Potassium 3.7 (3.6-5.1) mmol/L Chloride 105 (96-114) mmol/L Carbon Dioxide 23 (20-32) mmol/L Anion Gap 2 L (7-15) mEq/L BUN 17 (7-30) mg/dL Creatinine 1.0 (0.5-1.5) mg/dL Estimated Creat Clear 70.07 Estimated GFR 79 ml/min Glucose 121 H (60-115) mg/dL Lactate 3.7 H (0.5-1.9) mmol/L Calcium 7.6 L (8.4-10.6) mg/dL Magnesium 1.7 (1.5-2.6) mg/dL Total Bilirubin 3.1 H (0.1-1.5) mg/dL Direct Bilirubin 1.8 H (0.0-0.5) mg/dL AST 73 H (12-35) U/L ALT 51 H (4-50) U/L Alkaline Phosphatase 333 H (40-150) U/L Ammonia 38.0 H (13.1-30.0) umol/L Troponin I < 0.01 L (0.01-0.04) ng/mL C-Reactive Protein 4.7 H (0.5-1.0) mg/dL NT-Pro-B Natriuret Pep 969 pg/mL Total Protein 5.7 L (6.0-8.3) g/dL Albumin 2.3 L (3.3-5.0) g/dL Procalcitonin 29.20 H (<0.50) ng/mL Urine Color Eduarda A (Yellow) Urine Appearance Slightly Cloudy A (Clear) Urine pH 5.5 (5.0-8.5) Ur Specific Lindsey 1.010 (1.000-1.030) Urine Protein Negative (Negative) Urine Glucose (UA) Negative (Negative) Urine Ketones Negative (Negative) Urine Blood Negative (Negative) Urine Nitrite Negative (Negative) Urine Bilirubin 2+ A (Negative) Urine Urobilinogen 0.2 (0.2-1.0) Ur Leukocyte Esterase Negative (Negative) Urine RBC 0-2 (0-2) Urine WBC 0-2 (0-5) Ur Squamous Epith Cells None (None-Few) Urine Bacteria None (None) SARS-CoV-2 (PCR) Negative SARS-CoV-2 (Negative) Influenza Type A (PCR) Negative PCR FLU A (Negative) Influenza Type B (PCR) Negative PCR FLU B (Negative) RSV (PCR) Negative PCR RSV (Negative) Blood Type A Positive Antibody Screen NEGATIVE Crossmatch (AHG) See Detail 06/22/23 06/23/23 06/23/23 Range/Units 14:36 02:30 08:47 WBC 15.33 H (4.50-11.00) K/uL RBC 2.65 L (4.30-5.90) m/uL Hgb 9.1 L (13.5-17.5) gm/dL Hct 28.0 L (37.0-53.0) % MCV 106 H (80-100) fL MCH 34 (26-34) pg MCHC 33 (32-36) gm/dL RDW Coeff of Fidelina 19.7 H (11.5-15.5) % Plt Count 48 L* (140-440) K/uL Neut % (Auto) 82.6 H (42.0-72.0) % Lymph % (Auto) 6.3 L (20-44) % [place] % (Auto) 8.9 (0.0-11.0) % Eos % (Auto) 0.1 (0.0-7.0) % Baso % (Auto) 0.1 (0.0-3.0) % Neut # (Auto) 12.70 H (1.7-7.0) K/uL Lymph # (Auto) 1.00 (0.90-2.90) K/uL [place] # (Auto) 1.40 H (0.00-0.90) K/UL Eos # (Auto) 0.00 (0.00-0.50) K/uL Baso # (Auto) 0.00 (0.00-0.30) K/uL Abs Immat Gran (auto) 0.30 (0.00-0.30) K/uL Imm/Tot Granulo (auto) 2.0 % Diff Slide Review Acceptable Review (Acceptable) Sodium 134 L (135-149) mmol/L Potassium 3.6 (3.6-5.1) mmol/L Chloride 111 (96-114) mmol/L Carbon Dioxide 18 L (20-32) mmol/L Anion Gap 5 L (7-15) mEq/L BUN 18 (7-30) mg/dL Creatinine 0.7 (0.5-1.5) mg/dL Estimated Creat Clear 70.07 Estimated GFR 97 ml/min Glucose 94 (60-115) mg/dL Lactate 3.3 H 2.0 H 2.3 H (0.5-1.9) mmol/L Calcium 8.1 L (8.4-10.6) mg/dL Magnesium (1.5-2.6) mg/dL Total Bilirubin 3.5 H (0.1-1.5) mg/dL Direct Bilirubin 1.7 H (0.0-0.5) mg/dL AST 66 H (12-35) U/L ALT 52 H (4-50) U/L Alkaline Phosphatase 329 H (40-150) U/L Ammonia (13.1-30.0) umol/L Troponin I (0.01-0.04) ng/mL C-Reactive Protein (0.5-1.0) mg/dL NT-Pro-B Natriuret Pep pg/mL Total Protein 6.6 (6.0-8.3) g/dL Albumin 2.7 L (3.3-5.0) g/dL Procalcitonin (<0.50) ng/mL Urine Color (Yellow) Urine Appearance (Clear) Urine pH (5.0-8.5) Ur Specific Lindsey (1.000-1.030) Urine Protein (Negative) Urine Glucose (UA) (Negative) Urine Ketones (Negative) Urine Blood (Negative) Urine Nitrite (Negative) Urine Bilirubin (Negative) Urine Urobilinogen (0.2-1.0) Ur Leukocyte Esterase (Negative) Urine RBC (0-2) Urine WBC (0-5) Ur Squamous Epith Cells (None-Few) Urine Bacteria (None) SARS-CoV-2 (PCR) (Negative) Influenza Type A (PCR) (Negative) Influenza Type B (PCR) (Negative) RSV (PCR) (Negative) Blood Type Antibody Screen Crossmatch (AHG) <Jessi Rodríguez MD - Last Filed: 06/23/23 23:56> Imaging Data Chest x-ray: Attestation: I have reviewed the pertinent imaging results. <Rupali Tse MD - Last Filed: 06/23/23 14:03> My impression: Did compared to his last chest x-ray when he was here in April which was portable as well, do question if he has some pulmonary edema. <Rupali Rothman MD - Last Filed: 06/23/23 14:03> Radiologist's impression: Patient: MILAGROS RAIN Facility:?[facility] Patient ID:?[id number] Site Patient ID:?[id number]. Site :?[id number] Study:?XRay Chest PCXR-06/22/2023 11:14:12 AM Ordering Physician:KEN Final Report: Indication: Weakness, pancreatic cancer history of chemotherapy Comparison: Single-view chest May 02, 2023 Technique: Single AP view chest Findings: Interval removal of right-sided Port-A-Cath. Developing left basilar pleural effusion with diffusely increased interstitial markings consistent with pulmonary edema. No pneumothorax. The cardiomediastinal silhouette is within normal limits. The bony thorax is grossly intact. Impression: Developing left basilar pleural effusion with diffusely increased interstitial markings likely representing pulmonary edema. Dictated by Mejia Braxton MD @ 06/22/2023 11:37:21 AM (Electronic Signature) <Rupali Rothman MD - Last Filed: 06/23/23 14:03> CT Chest/Ab/Pelvis: Attestation: I have reviewed the pertinent imaging results. <Rupali Tse MD - Last Filed: 06/23/23 14:03> Radiologist's impression: Patient: MILAGROS RAIN Facility:?[facility] Patient ID:?[id number] Site Patient ID:?[id number]. Site :?[id number] Study:?CT Chest/Abd/Pelvis 93CC ISOVUE 370-06/22/2023 1:02:08 PM Ordering Physician:?DR. DAVID Final Report: Indication: SEPSIS HX OF PANCREATIC CANCER Technique: CT chest/abdomen/pelvis with IV contrast, 93 mL Isovue 370 Comparison: CT chest/abdomen/pelvis on May 09, 2023 Findings: Chest: Lungs: No focal airspace consolidation. No effusion. No pneumothorax. Subpleural 1.4 centimeter nodular opacity seen in the left lower lobe near the left major fissure, slightly increased in size compared to prior exam. Minimal left basilar atelectatic changes. Mediastinum: No acute abnormality appreciated. Small pericardial effusion and cardiomegaly, unchanged. Calcified coronary arterial atherosclerosis. Lymph nodes: Prominent subcarinal node is unchanged. Soft tissues: Gynecomastia. Bones: No acute abnormality appreciated. Degenerative changes of the spine. Abdomen and Pelvis: Hepatobiliary: Percutaneous biliary drain and mild biliary dilation, similar in appearance to prior examination. No new or enlarging lesions appreciated. Spleen: Prominent spleen, no acute abnormality appreciated. Pancreas: No acute abnormality appreciated. Adrenal glands: No acute abnormality appreciated. Kidneys: No significant parenchymal abnormality appreciated. No visualized calculi. No hydronephrosis. Bowel: No obstruction. Scattered diverticula with no evidence of acute diverticulitis. Mild wall thickening of the ascending and proximal transverse colon similar compared to prior exam with some adjacent pericolonic fat stranding. The appendix is within normal limits. 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 Lymph nodes: Unchanged prominent and enlarged mesenteric and retroperitoneal nodes. Peritoneum: Small volume ascites, decreased compared to prior examination. No free air. No abdominopelvic abscess. : Partially obscured by streak artifact from right hip replacement. Grossly no acute abnormality. Soft tissues: No acute abnormality appreciated. Supraumbilical hernias containing ascites. Bones: Right hip replacement. No acute abnormality appreciated. Impression: 1. There is redemonstration of wall thickening and some adjacent stranding surrounding the ascending and proximal transverse colon which can be seen with colitis. 2. Slightly decreased abdominopelvic ascites. No abdominopelvic abscess. 3. The subpleural nodular opacity in the left lower lobe is slightly increased compared to prior examination, indeterminate, with metastatic disease a differential consideration. Recommend close attention on follow-up imaging. Please note that all CT scans at this facility use dose modulation, iterative reconstruction, and/or weight-based dosing when appropriate to reduce radiation dose to as low as reasonably achievable. Dictated by Owen Graham MD @ 06/22/2023 1:25:12 PM (Electronic Signature) <Rupali Rothman MD - Last Filed: 06/23/23 14:03> ECG Data Attestation: I personally reviewed and interpreted this ECG as follows: (Normal sinus rhythm, 90 beats per minute. No ischemia, no infarct. QT corrected 455 milliseconds.) <Rupali Rothman MD - Last Filed: 06/23/23 14:03> ECG interpretation date: 06/22/23 <Rupali Rothman MD - Last Filed: 06/23/23 14:03> ECG interpretation time: 10:35 <Rupali Rothman MD - Last Filed: 06/23/23 14:03> Critical Care Time Critical Care Time Critical Care Time: No <Rupali Rothman MD - Last Filed: 06/23/23 14:03> Discharge Plan Discharge Clinical Impression: Thrombocytopenia Pancreatic cancer Qualifiers: Pancreatic malignancy location: unspecified Qualified Code(s): C25.9 - Malignant neoplasm of pancreas, unspecified Anemia Qualifiers: Anemia type: unspecified type Qualified Code(s): D64.9 - Anemia, unspecified Sepsis Qualifiers: Sepsis type: sepsis due to unspecified organism Sepsis acute organ dysfunction status: unspecified Qualified Code(s): A41.9 - Sepsis, unspecified organism <Rupali Rothman MD - Last Filed: 06/23/23 14:03> Patient Disposition: [facility] <Rupali Rothman MD - Last Filed: 06/23/23 14:03> Discharge Location: [facility] <Rupali Rothman MD - Last Filed: 06/23/23 14:03>
--- NOTE | 2023-06-22 10:04 | XR_ITS ---
Patient: MILAGROS RAIN Facility:?[facility] Patient ID:?[id number] Site Patient ID:?[id number]. Site :?[id number] Study:?XRay-Chest PCXR-06/22/2023 11:14:12 AM Ordering Physician:KEN Final Report: Indication: Weakness, pancreatic cancer history of chemotherapy Comparison: Single-view chest May 02, 2023 Technique: Single AP view chest Findings: Interval removal of right-sided Port-A-Cath. Developing left basilar pleural effusion with diffusely increased interstitial markings consistent with pulmonary edema. No pneumothorax. The cardiomediastinal silhouette is within normal limits. The bony thorax is grossly intact. Impression: Developing left basilar pleural effusion with diffusely increased interstitial markings likely representing pulmonary edema. Dictated by Mejia Braxton MD @ 06/22/2023 11:37:21 AM Signed by:?Mejia Braxton MD @06/22/2023 11:37:21 AM (Electronic Signature)
[2023-06-22] MEDS: 0.9 % SODIUM CHLORIDE 1000 ml 1,000 ML 500 ML IV (10:33)
[2023-06-22 10:58] LABS: Lactate* 3.7 mmol/L (0.5-1.9)
[2023-06-22 11:04] LABS: PCR FLU A Negative PCR FLU A (Negative); PCR FLU B Negative PCR FLU B (Negative); PCR RSV Negative PCR RSV (Negative); SARS PCR* Negative SARS-CoV-2 (Negative)
[2023-06-22 11:06] LABS: Basophils Absolute Auto 0.01 K/uL (0.00-0.30); Basophils Percent Auto 0.2 % (0.0-3.0); Hematocrit 21.3 % (37.0-53.0); Immature Granulocytes Abs Auto 0.06 K/uL (0.00-0.30); Immature Granulocytes Pct Auto 1.1 %; Lymphocytes Percent Auto 4.6 % (20-44); Mean Corpuscular HGB Conc 33 gm/dL (32-36); Mean Corpuscular Hemoglobin 36 pg (26-34); Mean Corpuscular Volume 108 fL (80-100); Monocytes Percent Auto 12.5 % (0.0-11.0); Neutrophils Percent Auto 81.6 % (42.0-72.0); RDW Coefficient of Variation % 16.2 % (11.5-15.5); Red Blood Count 1.97 m/uL (4.30-5.90); White Blood Count* 5.46 K/uL (4.50-11.00)
[2023-06-22 11:21] LABS: Albumin* 2.3 g/dL (3.3-5.0); Chloride* 105 mmol/L (96-114); Sodium* 130 mmol/L (135-149)
[2023-06-22 11:22] LABS: Potassium* 3.7 mmol/L (3.6-5.1)
[2023-06-22 11:24] LABS: Est. Creatinine Clearance* 70.07; Estimated Glomerular Filt Rate 79 ml/min
[2023-06-22 11:25] LABS: Alanine Aminotransferase* 51 U/L (4-50); Alkaline Phosphatase* 333 U/L (40-150); Anion Gap 2 mEq/L (7-15); Aspartate Amino Transferase* 73 U/L (12-35); Bilirubin Direct* 1.8 mg/dL (0.0-0.5); Bilirubin Total* 3.1 mg/dL (0.1-1.5); Blood Urea Nitrogen* 17 mg/dL (7-30); Calcium* 7.6 mg/dL (8.4-10.6); Carbon Dioxide* 23 mmol/L (20-32); Glucose* 121 mg/dL (60-115); Magnesium* 1.7 mg/dL (1.5-2.6); Total Protein* 5.7 g/dL (6.0-8.3)
[2023-06-22 11:28] LABS: C Reactive Protein* 4.7 mg/dL (0.5-1.0); Hemoglobin* 7.1 gm/dL (13.5-17.5); Platelet Count* 33 K/uL (140-440); Slide Review Reflex Yes
--- NOTE | 2023-06-22 11:33 | CT_ITS ---
Patient: MILAGROS RAIN Facility:?[facility] Patient ID:?[id number] Site Patient ID:?[id number]. Site :?1950 Study:?CT-Chest/Abd/Pelvis 93CC ISOVUE 370-06/22/2023 1:02:08 PM Ordering Physician:?DR. DAVID Final Report: Indication: SEPSIS HX OF PANCREATIC CANCER Technique: CT chest/abdomen/pelvis with IV contrast, 93 mL Isovue 370 Comparison: CT chest/abdomen/pelvis on May 09, 2023 Findings: Chest: Lungs: No focal airspace consolidation. No effusion. No pneumothorax. Subpleural 1.4 centimeter nodular opacity seen in the left lower lobe near the left major fissure, slightly increased in size compared to prior exam. Minimal left basilar atelectatic changes. Mediastinum: No acute abnormality appreciated. Small pericardial effusion and cardiomegaly, unchanged. Calcified coronary arterial atherosclerosis. Lymph nodes: Prominent subcarinal node is unchanged. Soft tissues: Gynecomastia. Bones: No acute abnormality appreciated. Degenerative changes of the spine. Abdomen and Pelvis: Hepatobiliary: Percutaneous biliary drain and mild biliary dilation, similar in appearance to prior examination. No new or enlarging lesions appreciated. Spleen: Prominent spleen, no acute abnormality appreciated. Pancreas: No acute abnormality appreciated. Adrenal glands: No acute abnormality appreciated. Kidneys: No significant parenchymal abnormality appreciated. No visualized calculi. No hydronephrosis. Bowel: No obstruction. Scattered diverticula with no evidence of acute diverticulitis. Mild wall thickening of the ascending and proximal transverse colon similar compared to prior exam with some adjacent pericolonic fat stranding. The appendix is within normal limits. 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 Lymph nodes: Unchanged prominent and enlarged mesenteric and retroperitoneal nodes. Peritoneum: Small volume ascites, decreased compared to prior examination. No free air. No abdominopelvic abscess. : Partially obscured by streak artifact from right hip replacement. Grossly no acute abnormality. Soft tissues: No acute abnormality appreciated. Supraumbilical hernias containing ascites. Bones: Right hip replacement. No acute abnormality appreciated. Impression: 1. There is redemonstration of wall thickening and some adjacent stranding surrounding the ascending and proximal transverse colon which can be seen with colitis. 2. Slightly decreased abdominopelvic ascites. No abdominopelvic abscess. 3. The subpleural nodular opacity in the left lower lobe is slightly increased compared to prior examination, indeterminate, with metastatic disease a differential consideration. Recommend close attention on follow-up imaging. Please note that all CT scans at this facility use dose modulation, iterative reconstruction, and/or weight-based dosing when appropriate to reduce radiation dose to as low as reasonably achievable. Dictated by Owen Graham MD @ 06/22/2023 1:25:12 PM Signed by:?Owen Graham MD @06/22/2023 1:25:12 PM (Electronic Signature)
[2023-06-22 11:40] LABS: Slide Review Acceptable Review (Acceptable)
[2023-06-22 11:41] LABS: NT Pro B Type NatriureticPept* 969 pg/mL
[2023-06-22 11:55] LABS: Troponin I* < 0.01 ng/mL (0.01-0.04)
[2023-06-22 14:28] LABS: Appearance Urine Slightly Cloudy (Clear); Bilirubin Urine 2+ (Negative); Blood Urine Negative (Negative); Color Urine Amber (Yellow); Glucose Urine Negative (Negative); Ketones Urine Negative (Negative); Leukocyte Esterase Urine Negative (Negative); Nitrite Urine Negative (Negative); Protein Urine Negative (Negative); Urobilinogen Urine 0.2 (0.2-1.0); pH Urine 5.5 (5.0-8.5)
[2023-06-22] MEDS: 0.9 % SODIUM CHLORIDE 250 ml IV (14:31)
[2023-06-22 14:41] LABS: RBC Urine 0-2 (0-2); WBC Urine 0-2 (0-5)
[2023-06-22 14:46] LABS: Lactate* 3.3 mmol/L (0.5-1.9)
[2023-06-22] MEDS: PIPERACILLIN/TAZOBACTAM 3.375 GM in 0.9 % SODIUM CHLORIDE Mini-bag 100 ML IVPB ×2 (14:48→20:19)
[2023-06-22] MEDS: LACTATED RINGERS 1000 ML 1,000 ML 500 ML IV (15:28)
[2023-06-22] MEDS: 0.9 % SODIUM CH + KCL 20 mEq/L 1,000 ML 100 ML IV (18:19)
[2023-06-22] MEDS: GABAPENTIN 300 MG CAPSULE PO (20:18)
[2023-06-23] VITALS (28 sets, daily range): BP systolic 82–102; BP diastolic 47–80; PULSE 64–65; RESP 14–16; TEMP 36.8; O2SAT 96
[2023-06-23] MEDS: PIPERACILLIN/TAZOBACTAM 3.375 GM in 0.9 % SODIUM CHLORIDE Mini-bag 100 ML IVPB ×3 (02:37→16:00)
[2023-06-23] MEDS: 0.9 % SODIUM CH + KCL 20 mEq/L 1,000 ML 100 ML IV ×2 (05:13→17:15)
[2023-06-23 08:55] LABS: Lactate* 2.3 mmol/L (0.5-1.9)
[2023-06-23 08:57] LABS: Basophils Percent Auto 0.1 % (0.0-3.0); Eosinophils Percent Auto 0.1 % (0.0-7.0); Hemoglobin* 9.1 gm/dL (13.5-17.5); Lymphocytes Percent Auto 6.3 % (20-44); Mean Corpuscular HGB Conc 33 gm/dL (32-36); Mean Corpuscular Hemoglobin 34 pg (26-34); Mean Corpuscular Volume 106 fL (80-100); Monocytes Percent Auto 8.9 % (0.0-11.0); Neutrophils Percent Auto 82.6 % (42.0-72.0); RDW Coefficient of Variation % 19.7 % (11.5-15.5); Red Blood Count 2.65 m/uL (4.30-5.90); White Blood Count* 15.33 K/uL (4.50-11.00)
[2023-06-23 09:18] LABS: Albumin* 2.7 g/dL (3.3-5.0); Platelet Count* 48 K/uL (140-440); Slide Review Reflex Yes
[2023-06-23 09:19] LABS: Chloride* 111 mmol/L (96-114); Potassium* 3.6 mmol/L (3.6-5.1); Sodium* 134 mmol/L (135-149)
[2023-06-23 09:21] LABS: Anion Gap 5 mEq/L (7-15); Bilirubin Direct* 1.7 mg/dL (0.0-0.5); Bilirubin Total* 3.5 mg/dL (0.1-1.5); Carbon Dioxide* 18 mmol/L (20-32); Creatinine* 0.7 mg/dL (0.5-1.5); Est. Creatinine Clearance* 70.07; Estimated Glomerular Filt Rate 97 ml/min
[2023-06-23 09:22] LABS: Alanine Aminotransferase* 52 U/L (4-50); Alkaline Phosphatase* 329 U/L (40-150); Aspartate Amino Transferase* 66 U/L (12-35); Blood Urea Nitrogen* 18 mg/dL (7-30); Calcium* 8.1 mg/dL (8.4-10.6); Glucose* 94 mg/dL (60-115); Total Protein* 6.6 g/dL (6.0-8.3)
[2023-06-23 10:19] LABS: Slide Review Acceptable Review (Acceptable)
[2023-06-23] MEDS: PANCREALIPASE (12,38,60) CAP 3 CAP PO ×2 (10:28→14:00)
[2023-06-23] MEDS: MAGNESIUM OXIDE 400 MG TABLET PO (11:10)
[2023-06-23] MEDS: MIDODRINE HCL 5 MG TABLET 10 MG PO (11:10)
== END 2023-06-23 18:14 | disposition short-term general hospital (02) ==
PROVIDERS: Family Medicine; Emergency Provider Family Medicine; PCP Family Medicine
DX: C25.9 Malignant neoplasm of pancreas, unspecified (principal); D64.9 Anemia, unspecified; A41.9 Sepsis, unspecified organism
CPT/HCPCS: 36415; 36430; 71045; 71260; 74177; 80053; 81001; 82140; 82248; 83605; 83735; 83880; 84145; 84484; 85025; 86140; 86850; 86900; 86901; 86922; 87040; 87631; 93005; 94761; 96365; 96366; 99284; 99285; A9270; J2543; J3370; J7030; J7050; J7120; P9016; Q9967

== ENCOUNTER 2023-06-23 18:08 | Outpatient (CLI) | payer MEDICARE, BC, SELFPAY | END 2023-06-23 18:09 | disposition home or self-care (01) | LOC: AMB 06-26 13:11 | PROVIDERS: PCP Family Medicine; Visit Provider Emergency Medicine Emergency Medical Services | DX: D69.6 Thrombocytopenia, unspecified (principal); A41.9 Sepsis, unspecified organism; C25.9 Malignant neoplasm of pancreas, unspecified; R53.1 Weakness | CPT/HCPCS: A0425; A0427 ==

== ENCOUNTER 2023-07-10 15:50 | Outpatient (CLI) | payer MEDICARE, BC, SELFPAY | END 2023-07-10 15:51 | disposition home or self-care (01) | LOC: AMB 07-14 06:21 | PROVIDERS: PCP Family Medicine; Visit Provider Family Medicine | DX: R41.0 Disorientation, unspecified (principal); R53.1 Weakness | CPT/HCPCS: A0425; A0427 ==

== ENCOUNTER 2023-07-10 16:26 | Inpatient (IN) | payer MEDICARE, BC, SELFPAY ==
[2023-07-10] VITALS (30 sets, daily range): BP systolic 93–134; BP diastolic 58–81; PULSE 80–112; RESP 16–22; TEMP 36.8–37.9; O2SAT 93–99; BMI 22.8
--- NOTE | 2023-07-10 16:33 | CT_ITS ---
Patient: MILAGROS RAIN Facility:?[facility] Patient ID:?[id number] Site Patient ID:?[id number]. Site :?1950 Study:?CT-Head WITHOUT-07/10/2023 5:16:00 PM Ordering Physician:?DR. ESCALANTE Final Report: Indication Fall. History of pancreatic cancer. TECHNIQUE: Noncontrast CT images of the brain. COMPARISON: None. FINDINGS: Mild diffuse cerebral volume loss. No mass effect or midline shift. The kruger- white differentiation is maintained. No acute intracranial hemorrhage or pathologic extra-axial fluid collection. Intracranial atherosclerotic calcifications. Globes are symmetric. The calvarium is intact. Minimal paranasal sinus mucosal thickening. Mild opacification of the left mastoid air cells. IMPRESSION: No acute intracranial hemorrhage or mass effect. Please note that all CT scans at this facility use dose modulation, iterative reconstruction, and/or weight-based dosing when appropriate to reduce radiation dose to as low as reasonably achievable. Dictated by Charly Burnette MD @ 07/10/2023 5:50:51 PM Signed by:?Charly Burnette MD @07/10/2023 5:50:51 PM (Electronic Signature)
[2023-07-10 16:48] LABS: HCO3 VBG 23 mmol/L (21-28); Lactate* 2.7 mmol/L (0.5-1.9); PCO2 VBG 29 mmHG (40-50); PO2 VBG 46.5 mmHG (25-47); pH VBG 7.514 (7.32-7.43)
[2023-07-10 16:50] LABS: Basophils Percent Auto 0.2 % (0.0-3.0); Eosinophils Percent Auto 0.1 % (0.0-7.0); Hematocrit 30.5 % (37.0-53.0); Hemoglobin* 10.3 gm/dL (13.5-17.5); Immature Granulocytes Pct Auto 0.2 %; Mean Corpuscular HGB Conc 34 gm/dL (32-36); Mean Corpuscular Hemoglobin 36 pg (26-34); Mean Corpuscular Volume 108 fL (80-100); Monocytes Percent Auto 5.9 % (0.0-11.0); Neutrophils Percent Auto 89.6 % (42.0-72.0); Platelet Count* 125 K/uL (140-440); Red Blood Count 2.83 m/uL (4.30-5.90); White Blood Count* 17.82 K/uL (4.50-11.00)
[2023-07-10 16:51] LABS: Slide Review Reflex No
[2023-07-10 17:15] LABS: Chloride* 106 mmol/L (96-114); Sodium* 135 mmol/L (135-149)
[2023-07-10 17:16] LABS: INR 1.45 (0.91-1.10); Potassium* 3.5 mmol/L (3.6-5.1); Prothrombin Time 18.6 Seconds
[2023-07-10 17:17] LABS: Alkaline Phosphatase* 262 U/L (40-150); Aspartate Amino Transferase* 69 U/L (12-35); Bilirubin Direct* 2.5 mg/dL (0.0-0.5); Bilirubin Total* 4.8 mg/dL (0.1-1.5); Lipase* 60 U/L (23-300); Magnesium* 1.8 mg/dL (1.5-2.6); Total Protein* 7.5 g/dL (6.0-8.3)
[2023-07-10 17:18] LABS: Alanine Aminotransferase* 38 U/L (4-50); Creatinine* 0.9 mg/dL (0.5-1.5); Est. Creatinine Clearance* 63.31; Estimated Glomerular Filt Rate 90 ml/min
[2023-07-10 17:19] LABS: Anion Gap 8 mEq/L (7-15); Blood Urea Nitrogen* 21 mg/dL (7-30); Calcium* 8.3 mg/dL (8.4-10.6); Carbon Dioxide* 21 mmol/L (20-32); Glucose* 114 mg/dL (60-115)
--- NOTE | 2023-07-10 17:21 | CT_ITS ---
Patient: MILAGROS RAIN Facility:?[facility] Patient ID:?[id number] Site Patient ID:?[id number] Site :?1950 Study:?CT-Chest WITHOUT-07/10/2023 5:56:11 PM Ordering Physician:?DR. ESCALANTE Final Report: INDICATION: Shortness of breath TECHNIQUE: CT chest without contrast. COMPARISON: CT 06/22/2023, 05/02/2023, FINDINGS: Lungs and pleura: Diffuse tiny nodules throughout the lungs not significantly changed from the most recent exam however when compared to the April CT multiple nodules are increased in size. Additionally larger nodules such as a subpleural 1 centimeter left lower lobe nodule are unchanged there adjacent lower lobe nodularity in the left lung base without significant change slightly irregular nodule adjacent to the right major fissure measuring 6 millimeters is unchanged Small effusions. Heart and vasculature: Normal caliber thoracic aorta the heart is enlarged. Coronary artery calcification. Lymph nodes/mediastinum: No mediastinal, hilar, or axillary adenopathy. Chest wall: No masses. Gynecomastia Bones: Unremarkable for age. IMPRESSION: 1. Diffuse tiny nodules are unchanged from most recent exam however multiple nodules are slightly increased in size when compared to April 2023. The larger nodule seen in the left lower lobe and adjacent subpleural nodularity in the lung base appears stable. Tiny pleural effusions. Findings are suspicious for metastatic disease. Please note that all CT scans at this facility use dose modulation, iterative reconstruction, and/or weight-based dosing when appropriate to reduce radiation dose to as low as reasonably achievable. Dictated by Kate Figueroa MD @ 07/10/2023 6:26:20 PM Signed by:?Kate Figueroa MD @07/10/2023 6:26:20 PM (Electronic Signature)
--- NOTE | 2023-07-10 17:21 | CT_ITS ---
Patient: MILAGROS RAIN Facility:?[facility] Patient ID:?[id number] Site Patient ID:?[id number]. Site :?1950 Study:?CT-Abdomen/Pelvis WITH 74CC ISSOVUE 370-07/10/2023 5:54:12 PM Ordering Physician:?DR. ESCALANTE Final Report: INDICATION: Shortness of breath. History of pancreatic cancer. COMPARISON : 06/22/2023, 05/09/2023, 04/15/2022 TECHNIQUE: CT of the abdomen and pelvis with 74 cc of Isovue 370 intravenous contrast. Please note that all CT scans at this facility use dose modulation, iterative reconstruction, and/or weight-based dosing when appropriate to reduce radiation dose to as low as reasonably achievable. FINDINGS: ABDOMEN Liver: Unchanged intrahepatic biliary ductal dilatation. In-situ percutaneous transhepatic locking loop drain positioned within the rubin hepatis. 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 No suspicious focal liver lesion is identified. Gallbladder: Cholecystectomy. Pancreas: Status post Whipple procedure. Remnant pancreas is unremarkable. No focal lesion. Normal duct caliber. No peripancreatic inflammatory changes. Spleen: Unchanged splenomegaly. Adrenal Glands: Symmetrical adrenal glands. No focal lesion of significance. Kidneys: Normal bilateral renal attenuation. No suspicious focal lesion. No obstructing nephrolith or dilatation of the intrarenal collecting systems. Nondilated upper urinary tracts. Gastrointestinal tract: Status post Whipple procedure. Unchanged segmental circumferential uniform wall thickening of the right colon from the cecum to the proximal transverse colon consistent with hypertensive portal colopathy given the presence of cavernous transformation of the portal vein, splenomegaly and splenorenal varices suggesting portal venous hypertension. Nonspecific moderate colonic fecal burden to the level of the rectum. No evidence of stercoral proctocolitis. Normal appendix. Vascular: Abdominal aorta and its major proximal branches including the celiac, superior mesenteric, inferior mesenteric, renal, and bilateral common iliac arteries are patent. Retroaortic left renal vein. Cavernous transformation of the portal vein. Additional findings: Moderate volume abdominopelvic ascites, perhaps slightly increased in amount compared to the most recent prior study of 06/22/2023. PELVIS No bladder lesion is identified. No significant incidental findings related to the uterus and uterine adnexae. No significant incidental findings related to the prostate and seminal vesicles. No abnormal free fluid. No incidental adenopathy. SKELETON AND BODY WALL Permeative osteolytic lesion of the L4 vertebral body with possible breech of the posterior cortex. No definite epidural soft tissue lesion is identified on this imaging modality. Incompletely imaged total right hip prosthesis. Unchanged supraumbilical anterior midline ventral abdominal wall hernia containing omental fat. Bilateral symmetrical gynecomastia. LOWER THORAX Clustered lateral segment right middle lobe micro nodules. 10 mm juxtapleural solid left lower lobe nodule. Cardiomegaly. Severe atherosclerotic coronary artery calcifications. Please refer to the separate report of the CT of the chest performed the same day. IMPRESSION: 1. 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 No definite epidural intraspinal element is identified on this imaging modality. MRI is recommended for further characterization which can be performed in a nonacute care setting. 2. Findings suspicious for hematogenous pulmonary metastases described above. Please refer to the separate chest CT report from the same day. 3. Moderate volume abdominopelvic ascites, perhaps slightly increased in volume compared to 06/22/2023. This is concentrated in the left subphrenic space, right pericolic gutter and pelvis. 4. Incidental findings described above, unchanged, including findings consistent with portal venous hypertension and hypertensive portal colopathy in this patient with a history of pancreatic cancer status post Whipple procedure. Please note that all CT scans at this facility use dose modulation, iterative reconstruction, and/or weight-based dosing when appropriate to reduce radiation dose to as low as reasonably achievable. Dictated by Aravind Brian MD @ 07/10/2023 6:35:05 PM Signed by:?Aravind Brian MD @07/10/2023 6:35:05 PM (Electronic Signature)
[2023-07-10 17:22] LABS: C Reactive Protein* 3.9 mg/dL (0.5-1.0)
[2023-07-10 17:23] LABS: D Dimer Quantitative* 9.13 ug/ml (0.00-0.50)
[2023-07-10 17:26] LABS: Acetaminophen* < 10.0 ug/mL (10.0-30.0); Ethanol* < 0.01 % (0.01-0.03); Salicylate* < 1.0 mg/dL (1.0-10)
[2023-07-10 17:34] LABS: Procalcitonin* 0.78 ng/mL (<0.50)
[2023-07-10] MEDS: 0.9 % SODIUM CHLORIDE 1000 ml 1,000 ML IV ×2 (17:40→19:05)
[2023-07-10 17:48] LABS: Appearance Urine Clear (Clear); Bilirubin Urine 2+ (Negative); Blood Urine Negative (Negative); Color Urine Amber (Yellow); Glucose Urine Negative (Negative); Ketones Urine Negative (Negative); Leukocyte Esterase Urine Negative (Negative); Nitrite Urine Negative (Negative); Protein Urine Trace (Negative); Urobilinogen Urine 0.2 (0.2-1.0); pH Urine 5.5 (5.0-8.5)
[2023-07-10] MEDS: PIPERACILLIN/TAZOBACTAM 3.375 GM in 0.9 % SODIUM CHLORIDE Mini-bag 100 ML IVPB (17:55)
[2023-07-10 18:01] LABS: Troponin I* < 0.01 ng/mL (0.01-0.04)
[2023-07-10 18:08] LABS: RBC Urine 0-2 (0-2)
--- NOTE | 2023-07-10 18:17 | ED_ITS ---
HPI - General Adult General Chief complaint: Neuro Symptoms/Altered Deficit Stated complaint: CVA Time Seen by Provider: 07/10/23 16:33 Source: patient, family and EMS Mode of arrival: EMS Limitations: altered mental status History of Present Illness HPI narrative: 73-year-old male presenting to the ED D secondary to altered mental status. Patient's states that the patient has not been feeling well since We , which was 4 days ago. She states that in the last 4 days he has been slowly declining in complaining of increased fatigue and generalized not feeling well. Today he really was not doing well. He got up had breakfast and then went back to bed. states that she checked on him around noon he was doing okay however around 4:00 a.m. in the afternoon he was almost unresponsive and could not stand up on his own. EMS was called he was brought here for evaluation. Patient has a past medical history significant for pancreatic cancer: He was admitted to the hospital in May for fever secondary to positive blood cultures with Clostridium perfringens. This was thought to be possibly secondary to the percutaneous drainage tube in his biliary system. Of note, patient's states that she would like CPR done in the event of cardiac arrest, does not want intubation. Related Data Home Medications Medication Instructions Recorded Confirmed aspirin 81 mg capsule 81 mg PO DAILY 05/02/23 06/22/23 colchicine 0.6 mg capsule 0.6 mg PO DAILY PRN 05/02/23 06/22/23 gabapentin 100 mg capsule 300 mg PO HS 05/02/23 07/10/23 lidocaine 5 % topical patch 1 patch topical Q24H 05/02/23 06/22/23 sjnyyu-[id number] 3 cap PO TIDWM 05/02/23 06/22/23 36,000-114,000-180,000 unit capsule,delay rel (Creon) magnesium oxide 400 mg (241.3 mg 400 mg PO BID 05/02/23 07/10/23 magnesium) tablet melatonin 3 mg capsule 3 mg PO HS 05/02/23 06/22/23 metoclopramide HCl 10 mg tablet 10 mg PO Q6H PRN 05/02/23 06/23/23 (Reglan) midodrine 10 mg tablet 10 mg PO 5XD 05/02/23 07/10/23 pantoprazole 40 mg tablet,delayed 40 mg PO DAILY 05/02/23 07/10/23 release polyethylene glycol 3350 17 17 g PO DAILY PRN 05/02/23 06/22/23 gram/dose oral powder sennosides 8.6 mg tablet 8.6 mg PO DAILY 05/02/23 06/22/23 sildenafil 100 mg tablet 100 mg PO DAILY PRN intercourse 05/02/23 06/22/23 trazodone 50 mg tablet 50 mg PO HS PRN 05/02/23 06/22/23 allopurinol 100 mg tablet 200 mg PO DAILY 07/10/23 amoxicillin 875 mg-potassium 1 tab PO BID 07/10/23 07/10/23 clavulanate 125 mg tablet Allergies Allergy/AdvReac Type Severity Reaction Status Date / Time No Known Drug Allergies Allergy Verified 06/22/23 13:07 Review of Systems Status of ROS: Reports: unobtainable due to mental status 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 Lives with Maritza (medical decision maker if needed), 2 adult children in [place]. No current smoking, no alcohol use. Active daily. Requests full code status. What is your current living situation?: I presently have a place to live Problems where you live: no known problems Problems where you live details: NA In the past 12 months, utilities in danger of being shut off: no In past 12 months, lack of transportation kept you from medical appts, meetings, work, or getting things needed for daily living: no In the past 12 mos, have been you worried that your food would run out before y ou had money to buy more?: never true In the past 12 mos, the food you bought just didn't last and you didn't have money to buy more?: never true Highest level of school completed/degree received: Associate degree: academic program Smoking Status: Never smoker Do you use any of these nicotine containing products: None Second hand tobacco smoke exposure: No How often do you have a drink containing alcohol: never How often do you have six or more drinks on one occasion: Never AUDIT-C Alcohol total score: 0 Non-prescribed substance use: denies use Caffeine: Yes (Rare) How often does anyone, including family, friends and others, physically hurt you : never How often does anyone, including family, friends and others, insult or talk down to you: never How often does anyone, including family, friends and others, threaten you with harm: never How often does anyone, including family, friends and others, scream or curse at you: never service: No Exam Narrative: Exam Narrative: Thin patient , covered in urine. Patient tells me what his name is, he can not tell me where he is. However he follows only half of the commands that I ask. There is no focal neurologic deficits. He does not have 1 side that is obviously not functioning as opposed to the other. He has no facial asymmetry. His speech is clear when he does respond. HEENT: Normocephalic atraumatic. Pupils are equally round reactive to light. Extraocular muscles are intact. Conjunctivae are moist with icterus noted. Dry mucous membranes. Neck is soft. Cardiovascular: Heart is regular rate and rhythm S1 and S2 are present without any murmurs. Lungs: Clear to auscultation bilaterally no wheezes rhonchi or rales are appreciated. Breath sounds are slightly decreased bilaterally but clear. Abdomen: Soft and nontender. He has normal bowel sounds. Belly slightly distended. Scar in the middle of the abdomen. He has a transhepatic biliary drainage tube in place. There was feces around his drainage bag. Extremities: Bilateral lower extremities are without edema. Skin: Jaundiced. Patient presents with a pulse of 112 and a temperature of 100.2. He is not hypoxic. Const: Vital Signs, click to edit/add: Vital Signs - 24 hr 07/10/23 16:33 07/10/23 16:33 07/10/23 16:40 Temperature 100.2 F H Pulse Rate 112 H Pulse Rate [Right Pulse Oximeter] 112 H Respiratory Rate 22 Blood Pressure Blood Pressure [Ri ght Upper Arm] 134/66 Pulse Oximetry 96 96 Oxygen Delivery Me thod Room Air 07/10/23 16:41 07/10/23 16:45 07/10/23 17:00 Temperature Pulse Rate 112 H 112 H 111 H Pulse Rate [Right Pulse Oximeter] Respiratory Rate Blood Pressure 93/58 L Blood Pressure [Ri ght Upper Arm] Pulse Oximetry 96 96 97 Oxygen Delivery Me thod 07/10/23 17:27 07/10/23 17:28 07/10/23 17:30 Temperature Pulse Rate 106 H 104 H 107 H Pulse Rate [Right Pulse Oximeter] Respiratory Rate Blood Pressure 107/69 Blood Pressure [Ri ght Upper Arm] Pulse Oximetry 98 97 97 Oxygen Delivery Me thod 07/10/23 17:54 07/10/23 17:55 07/10/23 17:59 Temperature 99.6 F Pulse Rate 103 H 103 H Pulse Rate [Right Pulse Oximeter] Respiratory Rate Blood Pressure 111/66 Blood Pressure [Ri ght Upper Arm] Pulse Oximetry 97 97 Oxygen Delivery Me thod 07/10/23 18:00 07/10/23 18:01 07/10/23 18:15 Temperature Pulse Rate 101 H 102 H 98 Pulse Rate [Right Pulse Oximeter] Respiratory Rate Blood Pressure 106/60 Blood Pressure [Ri ght Upper Arm] Pulse Oximetry 96 96 96 Oxygen Delivery Me thod 07/10/23 18:21 07/10/23 18:22 07/10/23 18:30 Temperature Pulse Rate 100 100 100 Pulse Rate [Right Pulse Oximeter] Respiratory Rate Blood Pressure 99/69 Blood Pressure [Ri ght Upper Arm] Pulse Oximetry 98 99 96 Oxygen Delivery Me thod 07/10/23 18:41 07/10/23 18:45 07/10/23 19:00 Temperature Pulse Rate 99 99 96 Pulse Rate [Right Pulse Oximeter] Respiratory Rate Blood Pressure 102/63 Blood Pressure [Ri ght Upper Arm] Pulse Oximetry 93 96 95 Oxygen Delivery Me thod 07/10/23 19:01 07/10/23 19:01 07/10/23 19:02 Temperature Pulse Rate 96 96 97 Pulse Rate [Right Pulse Oximeter] Respiratory Rate Blood Pressure 106/68 106/68 Blood Pressure [Ri ght Upper Arm] Pulse Oximetry 96 96 94 Oxygen Delivery Me thod 07/10/23 19:09 07/10/23 19:15 07/10/23 19:21 Temperature Pulse Rate 97 95 Pulse Rate [Right Pulse Oximeter] Respiratory Rate 20 Blood Pressure 113/74 Blood Pressure [Ri ght Upper Arm] Pulse Oximetry 94 96 Oxygen Delivery Tx thod 07/10/23 19:30 Temperature Pulse Rate 93 Pulse Rate [Right Pulse Oximeter] Respiratory Rate Blood Pressure Blood Pressure [Ri ght Upper Arm] Pulse Oximetry 97 Oxygen Delivery Tx thod Course Course ED Course: IV is established an IV fluids are started. EKG, read by me, shows sinus tachycardia with a 1st degree AV block, left axis deviation. Pulse 112. CBC shows an elevated white cell count at 17.82, hemoglobin is 10.3, platelet count is 125. 89.6% neutrophils. Lactate elevated at 2.7, CRP elevated at 3.9. Procalcitonin elevated at 0.78 Patient does fit criteria for sepsis- vancomycin and Zosyn are both ordered as IV fluids continue. INR elevated at 1.45, D-dimer elevated at 9.13. Potassium slightly low at 3.5, electrolytes otherwise unremarkable. Normal magnesium. Total bilirubin elevated at 4.8, direct bilirubin elevated at 2.5. AST elevated at 69, normal ALT, alkaline phosphatase elevated at 262. Ammonia elevated at 58. Troponin is normal. Salicylates, acetaminophen and ethyl alcohol levels checked secondary to altered mental status, all negative. Triple swab pending at time of dictation. Patient was sent for a head CT: This was unremarkable. Chest CT: No evidence of infection, he does have tiny pleural effusions and evidence of probable metastatic disease. Abdominal CT: Ascites present. No significant change from previous CT. Urinalysis: Positive for bilirubin, 5-10 wbc's. Urine cultures and blood cultures pending. 2nd L of normal saline started. Vital Signs Vital signs: Initial Vital Signs Temperature 100.2 F H 07/10/23 16:33 Temperature Source Temporal Artery Scan 07/10/23 16:33 Pulse Rate 112 H 07/10/23 16:33 Respiratory Rate 22 07/10/23 16:33 Blood Pressure 134/66 07/10/23 16:33 Blood Pressure Mean 88 07/10/23 16:33 Blood Pressure Position High-Fowlers 07/10/23 16:33 Pulse Oximetry 96 07/10/23 16:33 Oxygen Delivery Method Room Air 07/10/23 16:33 Vital Signs Temperature 100.2 F H 07/10/23 16:33 Pulse Rate 112 H 07/10/23 16:33 Respiratory Rate 22 07/10/23 16:33 Blood Pressure 134/66 07/10/23 16:33 Pulse Oximetry 96 07/10/23 16:33 Oxygen Delivery Method Room Air 07/10/23 16:33 Temperature 99.6 F 07/10/23 17:59 Pulse Rate 93 07/10/23 19:30 Respiratory Rate 20 07/10/23 19:09 Blood Pressure 113/74 07/10/23 19:21 Pulse Oximetry 97 07/10/23 19:30 Oxygen Delivery Method Room Air 07/10/23 16:33 Medications Administered Medications: Generic Name Dose Route Start Last Admin Trade Name Freq PRN Reason Stop Dose Admin Sodium Chloride 1,000 mls @ 1,000 mls/hr 07/10/23 19:00 07/10/23 19:05 0.9 % Sodium Chloride 1000 Ml IV 07/10/23 19:59 1,000 mls/hr .Q1H MIKE Administration Discontinued Medications Generic Name Dose Route Start Last Admin Trade Name Freq PRN Reason Stop Dose Admin Sodium Chloride 1,000 mls @ 1,000 mls/hr 07/10/23 16:45 07/10/23 18:20 0.9 % Sodium Chloride 1000 Ml IV 07/10/23 17:44 Infused .Q1H MIKE Infusion Vancomycin HCl 1,250 mg/ 512.5 mls @ 256.25 mls/hr 07/10/23 16:55 07/10/23 18:49 Sodium Chloride IVPB 07/10/23 16:56 256.25 mls/hr ONCE ONE Administration Protocol Piperacillin Sod/Tazobactam 100 mls @ 200 mls/hr 07/10/23 16:55 07/10/23 18:27 Sod 3.375 gm/ Sodium Chloride IVPB 07/10/23 16:56 Infused ONCE ONE Infusion Medical Decision Making MDM Narrative Medical decision making narrative: 73-year-old male with sepsis, unclear source. Patient will be admitted for further management. Medical Records Medical records reviewed: Yes I reviewed the patient's medical records Lab Data Lab results reviewed: Yes I reviewed the patient's lab results Labs: Lab Results 07/10/23 07/10/23 07/10/23 Range/Units 16:34 16:39 17:30 WBC 17.82 H (4.50-11.00) K/uL RBC 2.83 L (4.30-5.90) m/uL Hgb 10.3 L (13.5-17.5) gm/dL Hct 30.5 L (37.0-53.0) % MCV 108 H (80-100) fL MCH 36 H (26-34) pg MCHC 34 (32-36) gm/dL RDW Coeff of Fidelina 19.0 H (11.5-15.5) % Plt Count 125 L (140-440) K/uL Neut % (Auto) 89.6 H (42.0-72.0) % Lymph % (Auto) 4.0 L (20-44) % Woodford % (Auto) 5.9 (0.0-11.0) % Eos % (Auto) 0.1 (0.0-7.0) % Baso % (Auto) 0.2 (0.0-3.0) % Neut # (Auto) 16.00 H (1.7-7.0) K/uL Lymph # (Auto) 0.70 L (0.90-2.90) K/uL Woodford # (Auto) 1.10 H (0.00-0.90) K/UL Eos # (Auto) 0.00 (0.00-0.50) K/uL Baso # (Auto) 0.00 (0.00-0.30) K/uL Abs Immat Gran (auto) 0.00 (0.00-0.30) K/uL Imm/Tot Granulo (auto) 0.2 % INR 1.45 H (0.91-1.10) D-Dimer Quant (PE/DVT) 9.13 H (0.00-0.50) ug/ml VBG pH 7.514 H (7.32-7.43) VBG pCO2 29 L (40-50) mmHG VBG pO2 46.5 (25-47) mmHG VBG HCO3 23 (21-28) mmol/L Sodium 135 (135-149) mmol/L Potassium 3.5 L (3.6-5.1) mmol/L Chloride 106 (96-114) mmol/L Carbon Dioxide 21 (20-32) mmol/L Anion Gap 8 (7-15) mEq/L BUN 21 (7-30) mg/dL Creatinine 0.9 (0.5-1.5) mg/dL Estimated Creat Clear 63.31 Estimated GFR 90 ml/min Glucose 114 (60-115) mg/dL Lactate 2.7 H (0.5-1.9) mmol/L Calcium 8.3 L (8.4-10.6) mg/dL Magnesium 1.8 (1.5-2.6) mg/dL Total Bilirubin 4.8 H (0.1-1.5) mg/dL Direct Bilirubin 2.5 H (0.0-0.5) mg/dL AST 69 H (12-35) U/L ALT 38 (4-50) U/L Alkaline Phosphatase 262 H (40-150) U/L Ammonia 58.0 H (13.1-30.0) umol/L Troponin I < 0.01 L (0.01-0.04) ng/mL C-Reactive Protein 3.9 H (0.5-1.0) mg/dL Total Protein 7.5 (6.0-8.3) g/dL Albumin 3.0 L (3.3-5.0) g/dL Lipase 60 (23-300) U/L Procalcitonin 0.78 H (<0.50) ng/mL Urine Color Eduarda A (Yellow) Urine Appearance Clear (Clear) Urine pH 5.5 (5.0-8.5) Ur Specific Stanley 1.020 (1.000-1.030) Urine Protein Trace A (Negative) Urine Glucose (UA) Negative (Negative) Urine Ketones Negative (Negative) Urine Blood Negative (Negative) Urine Nitrite Negative (Negative) Urine Bilirubin 2+ A (Negative) Urine Urobilinogen 0.2 (0.2-1.0) Ur Leukocyte Esterase Negative (Negative) Urine RBC 0-2 (0-2) Urine WBC 5-10 A (0-5) Ur Squamous Epith Cells None (None-Few) Urine Bacteria None (None) Salicylates < 1.0 L (1.0-10) mg/dL Acetaminophen < 10.0 L (10.0-30.0) ug/mL Ethyl Alcohol < 0.01 L (0.01-0.03) % SARS-CoV-2 (PCR) (Negative) Influenza Type A (PCR) (Negative) Influenza Type B (PCR) (Negative) RSV (PCR) (Negative) POC Troponin I 0.01 (0.01-0.04) ng/ml 07/10/23 Range/Units 18:00 WBC (4.50-11.00) K/uL RBC (4.30-5.90) m/uL Hgb (13.5-17.5) gm/dL Hct (37.0-53.0) % MCV (80-100) fL MCH (26-34) pg MCHC (32-36) gm/dL RDW Coeff of Fidelina (11.5-15.5) % Plt Count (140-440) K/uL Neut % (Auto) (42.0-72.0) % Lymph % (Auto) (20-44) % Woodford % (Auto) (0.0-11.0) % Eos % (Auto) (0.0-7.0) % Baso % (Auto) (0.0-3.0) % Neut # (Auto) (1.7-7.0) K/uL Lymph # (Auto) (0.90-2.90) K/uL Woodford # (Auto) (0.00-0.90) K/UL Eos # (Auto) (0.00-0.50) K/uL Baso # (Auto) (0.00-0.30) K/uL Abs Immat Gran (auto) (0.00-0.30) K/uL Imm/Tot Granulo (auto) % INR (0.91-1.10) D-Dimer Quant (PE/DVT) (0.00-0.50) ug/ml VBG pH (7.32-7.43) VBG pCO2 (40-50) mmHG VBG pO2 (25-47) mmHG VBG HCO3 (21-28) mmol/L Sodium (135-149) mmol/L Potassium (3.6-5.1) mmol/L Chloride (96-114) mmol/L Carbon Dioxide (20-32) mmol/L Anion Gap (7-15) mEq/L BUN (7-30) mg/dL Creatinine (0.5-1.5) mg/dL Estimated Creat Clear Estimated GFR ml/min Glucose (60-115) mg/dL Lactate (0.5-1.9) mmol/L Calcium (8.4-10.6) mg/dL Magnesium (1.5-2.6) mg/dL Total Bilirubin (0.1-1.5) mg/dL Direct Bilirubin (0.0-0.5) mg/dL AST (12-35) U/L ALT (4-50) U/L Alkaline Phosphatase (40-150) U/L Ammonia (13.1-30.0) umol/L Troponin I (0.01-0.04) ng/mL C-Reactive Protein (0.5-1.0) mg/dL Total Protein (6.0-8.3) g/dL Albumin (3.3-5.0) g/dL Lipase (23-300) U/L Procalcitonin (<0.50) ng/mL Urine Color (Yellow) Urine Appearance (Clear) Urine pH (5.0-8.5) Ur Specific Stanley (1.000-1.030) Urine Protein (Negative) Urine Glucose (UA) (Negative) Urine Ketones (Negative) Urine Blood (Negative) Urine Nitrite (Negative) Urine Bilirubin (Negative) Urine Urobilinogen (0.2-1.0) Ur Leukocyte Esterase (Negative) Urine RBC (0-2) Urine WBC (0-5) Ur Squamous Epith Cells (None-Few) Urine Bacteria (None) Salicylates (1.0-10) mg/dL Acetaminophen (10.0-30.0) ug/mL Ethyl Alcohol (0.01-0.03) % SARS-CoV-2 (PCR) Negative SARS-CoV-2 (Negative) Influenza Type A (PCR) Negative PCR FLU A (Negative) Influenza Type B (PCR) Negative PCR FLU B (Negative) RSV (PCR) Negative PCR RSV (Negative) POC Troponin I (0.01-0.04) ng/ml Imaging Data CT scan - abdomen: Attestation: I have reviewed the pertinent imaging results. Radiologist's impression: Study:?CT-Abdomen/Pelvis WITH 74CC ISSOVUE 370-07/10/2023 5:54:12 PM Ordering Physician:?DR. ESCALANTE Final Report: INDICATION: Shortness of breath. History of pancreatic cancer. COMPARISON : 06/22/2023, 05/09/2023, 04/15/2022 TECHNIQUE: CT of the abdomen and pelvis with 74 cc of Isovue 370 intravenous contrast. Please note that all CT scans at this facility use dose modulation, iterative reconstruction, and/or weight-based dosing when appropriate to reduce radiation dose to as low as reasonably achievable. FINDINGS: ABDOMEN Liver: Unchanged intrahepatic biliary ductal dilatation. In-situ percutaneous transhepatic locking loop drain positioned within the rubin hepatis. 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 No suspicious focal liver lesion is identified. Gallbladder: Cholecystectomy. Pancreas: Status post Whipple procedure. Remnant pancreas is unremarkable. No focal lesion. Normal duct caliber. No peripancreatic inflammatory changes. Spleen: Unchanged splenomegaly. Adrenal Glands: Symmetrical adrenal glands. No focal lesion of significance. Kidneys: Normal bilateral renal attenuation. No suspicious focal lesion. No obstructing nephrolith or dilatation of the intrarenal collecting systems. Nondilated upper urinary tracts. Gastrointestinal tract: Status post Whipple procedure. Unchanged segmental circumferential uniform wall thickening of the right colon from the cecum to the proximal transverse colon consistent with hypertensive portal colopathy given the presence of cavernous transformation of the portal vein, splenomegaly and splenorenal varices suggesting portal venous hypertension. Nonspecific moderate colonic fecal burden to the level of the rectum. No evidence of stercoral proctocolitis. Normal appendix. Vascular: Abdominal aorta and its major proximal branches including the celiac, superior mesenteric, inferior mesenteric, renal, and bilateral common iliac arteries are patent. Retroaortic left renal vein. Cavernous transformation of the portal vein. Additional findings: Moderate volume abdominopelvic ascites, perhaps slightly increased in amount compared to the most recent prior study of 06/22/2023. PELVIS No bladder lesion is identified. No significant incidental findings related to the uterus and uterine adnexae. No significant incidental findings related to the prostate and seminal vesicles. No abnormal free fluid. No incidental adenopathy. SKELETON AND BODY WALL Permeative osteolytic lesion of the L4 vertebral body with possible breech of the posterior cortex. No definite epidural soft tissue lesion is identified on this imaging modality. Incompletely imaged total right hip prosthesis. Unchanged supraumbilical anterior midline ventral abdominal wall hernia containing omental fat. Bilateral symmetrical gynecomastia. LOWER THORAX Clustered lateral segment right middle lobe micro nodules. 10 mm juxtapleural solid left lower lobe nodule. Cardiomegaly. Severe atherosclerotic coronary artery calcifications. Please refer to the separate report of the CT of the chest performed the same day. IMPRESSION: 1. 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 No definite epidural intraspinal element is identified on this imaging modality. MRI is recommended for further characterization which can be performed in a nonacute care setting. 2. Findings suspicious for hematogenous pulmonary metastases described above. Please refer to the separate chest CT report from the same day. 3. Moderate volume abdominopelvic ascites, perhaps slightly increased in volume compared to 06/22/2023. This is concentrated in the left subphrenic space, right pericolic gutter and pelvis. 4. Incidental findings described above, unchanged, including findings consistent with portal venous hypertension and hypertensive portal colopathy in this patient with a history of pancreatic cancer status post Whipple procedure. CT scan - chest: Attestation: I have reviewed the pertinent imaging results. Radiologist's impression: Study:?CT-Chest WITHOUT-07/10/2023 5:56:11 PM Ordering Physician:ZENAIDA ESCALANTE Final Report: INDICATION: Shortness of breath TECHNIQUE: CT chest without contrast. COMPARISON: CT 06/22/2023, 05/02/2023, FINDINGS: Lungs and pleura: Diffuse tiny nodules throughout the lungs not significantly changed from the most recent exam however when compared to the April CT multiple nodules are increased in size. Additionally larger nodules such as a subpleural 1 centimeter left lower lobe nodule are unchanged there adjacent lower lobe nodularity in the left lung base without significant change slightly irregular nodule adjacent to the right major fissure measuring 6 millimeters is unchanged Small effusions. Heart and vasculature: Normal caliber thoracic aorta the heart is enlarged. Coronary artery calcification. Lymph nodes/mediastinum: No mediastinal, hilar, or axillary adenopathy. Chest wall: No masses. Gynecomastia Bones: Unremarkable for age. IMPRESSION: 1. Diffuse tiny nodules are unchanged from most recent exam however multiple nodules are slightly increased in size when compared to April 2023. The larger nodule seen in the left lower lobe and adjacent subpleural nodularity in the lung base appears stable. Tiny pleural effusions. Findings are suspicious for metastatic disease. CT scan - head: Attestation: I have reviewed the pertinent imaging results. Radiologist's impression: Study:?CT-Head WITHOUT-07/10/2023 5:16:00 PM Ordering Physician:?DR. ESCALANTE Final Report: Indication Fall. History of pancreatic cancer. TECHNIQUE: Noncontrast CT images of the brain. COMPARISON: None. FINDINGS: Mild diffuse cerebral volume loss. No mass effect or midline shift. The kruger- white differentiation is maintained. No acute intracranial hemorrhage or pathologic extra-axial fluid collection. Intracranial atherosclerotic calcifications. Globes are symmetric. The calvarium is intact. Minimal paranasal sinus mucosal thickening. Mild opacification of the left mastoid air cells. IMPRESSION: No acute intracranial hemorrhage or mass effect. ECG Data Attestation: I personally reviewed and interpreted this ECG as follows: Discharge Plan Discharge Clinical Impression: Pancreatic cancer, Sepsis, Altered mental status Patient Disposition: Admitted As Observation Condition: Guarded
[2023-07-10 18:25] LABS: Troponin, Point-of-Care* 0.01 ng/ml (0.01-0.04)
[2023-07-10 19:40] LABS: PCR FLU A Negative PCR FLU A (Negative); PCR FLU B Negative PCR FLU B (Negative); PCR RSV Negative PCR RSV (Negative); SARS PCR* Negative SARS-CoV-2 (Negative)
--- NOTE | 2023-07-10 20:15 | P.IMHP_ITS ---
Hospitalist- H&P: HPI History of Present Illness Date Seen: 07/10/23 Chief complaint: CVA Narrative: Marcial Siu is a 73 year old man presents to our emergency department at the insistence of his after not feeling well for the past 4 days. Over the course of the past 4 days he is becoming increasingly fatigued, cold, tired. Denies myalgias, arthralgias. Denies cough, shortness of breath. Denies rash. Denies headache or neck stiffness. No recent trauma or injury. noted blood in his biliary drainage bag today. In the past 2-3 months he had a similar presentation and was found to be septic. She was concerned that he might be septic once again and thus she insisted he come in for assessment. Patient known to have widely metastatic pancreatic cancer. First diagnosed with pancreatic cancer in February of 2021. Underwent Whipple procedure in March of 2021 as well as a percutaneous transhepatic cholangiogram biliary drainage placement. Previously had the right chest port. This has since been removed. Did receive chemotherapy intermittently over the years. Last chemotherapy received was about 2 weeks ago. Review of Systems Status of ROS: Reports: 10 or more systems reviewed and unremarkable except as noted in History and below Narrative: He indicates he is extremely fatigued. Notes inability to warm up. Denies rigors or diaphoresis however. No fevers. No longer moves much at all in his home. Moves from his bed to a chair to a bathroom to the kitchen, otherwise does not do much walking at all. Uses his walker. Profoundly weaker today compared to even yesterday. Notes desire for full resuscitation in event of cardiopulmonary demise. Designates his as his power of contract attorney for health should that be required. [facility] Medical History (Updated 07/10/23 @ 20:45 by Trent Sneed MD) Sepsis ?A41.9 - Sepsis, unspecified organism (ICD-10) Clostridium perfringens infection ?B96.7 - Clostridium perfringens [C. perfringens] as the cause of diseases classified elsewhere (ICD-10) Gout ?M10.9 - Gout, unspecified (ICD-10) Orthostatic hypotension ?I95.1 - Orthostatic hypotension (ICD-10) Pancreatic cancer ?C25.9 - Malignant neoplasm of pancreas, unspecified (ICD-10) Surgical History (Updated 07/10/23 @ 20:47 by Trent Sneed MD) H/O Whipple procedure ?Z90.410 - Acquired total absence of pancreas (ICD-10) ?Z90.49 - Acquired absence of other specified parts of digestive tract (ICD- 10) S/P hip replacement ?Z96.649 - Presence of unspecified artificial hip joint (ICD-10) Social History Narrative: Retired from [employer] in [place]. Lives with Maritza (medical decision maker if needed), 2 adult children in [place]. No current smoking, no alcohol use. Active daily. Requests full code status. What is your current living situation?: I presently have a place to live Problems where you live: no known problems Problems where you live details: NA In the past 12 months, utilities in danger of being shut off: no In past 12 months, lack of transportation kept you from medical appts, meetings, work, or getting things needed for daily living: no In the past 12 mos, have been you worried that your food would run out before you had money to buy more?: never true In the past 12 mos, the food you bought just didn't last and you didn't have money to buy more?: never true Highest level of school completed/degree received: Associate degree: academic program Smoking Status: Never smoker Do you use any of these nicotine containing products: None Second hand tobacco smoke exposure: No How often do you have a drink containing alcohol: never How often do you have six or more drinks on one occasion: Never AUDIT-C Alcohol total score: 0 Non-prescribed substance use: denies use Caffeine: Yes (Rare) How often does anyone, including family, friends and others, physically hurt you : never How often does anyone, including family, friends and others, insult or talk down to you: never How often does anyone, including family, friends and others, threaten you with harm: never How often does anyone, including family, friends and others, scream or curse at you: never service: No Meds Home Medications and Allergies Home Medications Medication Instructions Recorded Confirmed Type aspirin 81 mg capsule 81 mg PO DAILY 05/02/23 06/22/23 History colchicine 0.6 mg capsule 0.6 mg PO DAILY PRN 05/02/23 06/22/23 History gabapentin 100 mg capsule 300 mg PO HS 05/02/23 07/10/23 History lidocaine 5 % topical patch 1 patch topical Q24H 05/02/23 06/22/23 History xlquhs-[id number]-[id number] 3 cap PO TIDWM 05/02/23 06/22/23 History 36,000-114,000-180,000 unit capsule,delay rel (Creon) magnesium oxide 400 mg (241.3 mg 400 mg PO BID 05/02/23 07/10/23 History magnesium) tablet melatonin 3 mg capsule 3 mg PO HS 05/02/23 06/22/23 History metoclopramide HCl 10 mg tablet 10 mg PO Q6H PRN 05/02/23 06/23/23 History (Reglan) midodrine 10 mg tablet 10 mg PO 5XD 05/02/23 07/10/23 History pantoprazole 40 mg tablet,delayed 40 mg PO DAILY 05/02/23 07/10/23 History release polyethylene glycol 3350 17 17 g PO DAILY PRN 05/02/23 06/22/23 History gram/dose oral powder sennosides 8.6 mg tablet 8.6 mg PO DAILY 05/02/23 06/22/23 History sildenafil 100 mg tablet 100 mg PO DAILY PRN intercourse 05/02/23 06/22/23 History trazodone 50 mg tablet 50 mg PO HS PRN 05/02/23 06/22/23 History allopurinol 100 mg tablet 200 mg PO DAILY 07/10/23 History amoxicillin 875 mg-potassium 1 tab PO BID 07/10/23 07/10/23 History clavulanate 125 mg tablet Allergies Allergy/AdvReac Type Severity Reaction Status Date / Time No Known Drug Allergies Allergy Verified 06/22/23 13:07 Exam Narrative: Exam Narrative: I examined patient in hospital emergency department. He is laying on his left side. Appears ill. Vision and hearing are adequate. Appears jaundice. Has icterus. Conjugate gaze. Pupils equally round react to light and accommodation. Dry buccal mucosa. Dentition in fair repair. Midline nasal septum. No JVD or hepatojugular reflux. No carotid bruits. No head neck lymphadenopathy. Lungs are clear to auscultation. Heart tones tachycardic with regular rhythm, normal S1-S2. Abdomen with active bowel sounds. Percutaneous transhepatic cholangiogram drainage to in place without insertion site inflammation noted. Nontender. Extremities without edema. Moves all 4 extremities. No focal motor neurologic deficits. Generalized weakness. Const: Vital Signs, click to edit/add: Vital Signs - 24 hr 07/10/23 16:33 07/10/23 16:33 07/10/23 16:40 Temperature 100.2 F H Pulse Rate 112 H Pulse Rate [Right Pulse Oximeter] 112 H Respiratory Rate 22 Blood Pressure Blood Pressure [Ri ght Upper Arm] 134/66 Pulse Oximetry 96 96 Oxygen Delivery Me thod Room Air 07/10/23 16:41 07/10/23 16:45 07/10/23 17:00 Temperature Pulse Rate 112 H 112 H 111 H Pulse Rate [Right Pulse Oximeter] Respiratory Rate Blood Pressure 93/58 L Blood Pressure [Ri ght Upper Arm] Pulse Oximetry 96 96 97 Oxygen Delivery Me thod 07/10/23 17:27 07/10/23 17:28 07/10/23 17:30 Temperature Pulse Rate 106 H 104 H 107 H Pulse Rate [Right Pulse Oximeter] Respiratory Rate Blood Pressure 107/69 Blood Pressure [Ri ght Upper Arm] Pulse Oximetry 98 97 97 Oxygen Delivery Me thod 07/10/23 17:54 07/10/23 17:55 07/10/23 17:59 Temperature 99.6 F Pulse Rate 103 H 103 H Pulse Rate [Right Pulse Oximeter] Respiratory Rate Blood Pressure 111/66 Blood Pressure [Ri ght Upper Arm] Pulse Oximetry 97 97 Oxygen Delivery Me thod 07/10/23 18:00 07/10/23 18:01 07/10/23 18:15 Temperature Pulse Rate 101 H 102 H 98 Pulse Rate [Right Pulse Oximeter] Respiratory Rate Blood Pressure 106/60 Blood Pressure [Ri ght Upper Arm] Pulse Oximetry 96 96 96 Oxygen Delivery Me thod 07/10/23 18:21 07/10/23 18:22 07/10/23 18:30 Temperature Pulse Rate 100 100 100 Pulse Rate [Right Pulse Oximeter] Respiratory Rate Blood Pressure 99/69 Blood Pressure [Ri ght Upper Arm] Pulse Oximetry 98 99 96 Oxygen Delivery Me thod 07/10/23 18:41 07/10/23 18:45 07/10/23 19:00 Temperature Pulse Rate 99 99 96 Pulse Rate [Right Pulse Oximeter] Respiratory Rate Blood Pressure 102/63 Blood Pressure [Ri ght Upper Arm] Pulse Oximetry 93 96 95 Oxygen Delivery [facility] 07/10/23 19:01 07/10/23 19:01 07/10/23 19:02 Temperature Pulse Rate 96 96 97 Pulse Rate [Right Pulse Oximeter] Respiratory Rate Blood Pressure 106/68 106/68 Blood Pressure [Ri ght Upper Arm] Pulse Oximetry 96 96 94 Oxygen Delivery [facility] 07/10/23 19:09 07/10/23 19:15 07/10/23 19:21 Temperature Pulse Rate 97 95 Pulse Rate [Right Pulse Oximeter] Respiratory Rate 20 Blood Pressure 113/74 Blood Pressure [Ri ght Upper Arm] Pulse Oximetry 94 96 Oxygen Delivery [facility] 07/10/23 19:30 07/10/23 19:41 07/10/23 19:45 Temperature Pulse Rate 93 92 92 Pulse Rate [Right Pulse Oximeter] Respiratory Rate Blood Pressure 109/74 Blood Pressure [Ri ght Upper Arm] Pulse Oximetry 97 97 95 Oxygen Delivery [facility] Hospitalist - H&P: Result Labs Labs: Short CBC 07/10/23 Range/Units 16:39 WBC 17.82 H (4.50-11.00) K/uL Hgb 10.3 L (13.5-17.5) gm/dL Hct 30.5 L (37.0-53.0) % Plt Count 125 L (140-440) K/uL BMP 07/10/23 16:39 Sodium 135 Potassium 3.5 L Chloride 106 Carbon Dioxide 21 BUN 21 Creatinine 0.9 Glucose 114 Calcium 8.3 L Cardiac Enzymes 07/10/23 Range/Units 16:39 Troponin I < 0.01 L (0.01-0.04) ng/mL Liver Function 07/10/23 Range/Units 16:39 Total Bilirubin 4.8 H (0.1-1.5) mg/dL Direct Bilirubin 2.5 H (0.0-0.5) mg/dL AST 69 H (12-35) U/L ALT 38 (4-50) U/L Alkaline Phosphatase 262 H (40-150) U/L Albumin 3.0 L (3.3-5.0) g/dL Urine 07/10/23 Range/Units 17:30 Urine Color Eduarda A (Yellow) Urine Appearance Clear (Clear) Urine pH 5.5 (5.0-8.5) Ur Specific Hellier 1.020 (1.000-1.030) Urine Protein Trace A (Negative) Urine Glucose (UA) Negative (Negative) ECG Attestation: I personally reviewed and interpreted this ECG as follows: ECG interpretation date: 07/10/23 Interpretation: Sinus tachycardia with first-degree AV block. Imaging CT scan - chest: Radiologist's impression: IMPRESSION: 1. Diffuse tiny nodules are unchanged from most recent exam however multiple nodules are slightly increased in size when compared to April 2023. The larger nodule seen in the left lower lobe and adjacent subpleural nodularity in the lung base appears stable. Tiny pleural effusions. Findings are suspicious for metastatic disease. CT scan - abdomen and pelvis: Radiologist's impression: IMPRESSION: 1. 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 No definite epidural intraspinal element is identified on this imaging modality. MRI is recommended for further characterization which can be performed in a nonacute care setting. 2. Findings suspicious for hematogenous pulmonary metastases described above. Please refer to the separate chest CT report from the same day. 3. Moderate volume abdominopelvic ascites, perhaps slightly increased in volume compared to 06/22/2023. This is concentrated in the left subphrenic space, right pericolic gutter and pelvis. 4. Incidental findings described above, unchanged, including findings consistent with portal venous hypertension and hypertensive portal colopathy in this patient with a history of pancreatic cancer status post Whipple procedure. Assessment and Plan Assessment and plan (1) Sepsis: Problem comment: - blood cultures obtained - being treated with normal saline 30 mL/kilogram and monitoring lactate. Continue with IV fluids. - initiated IV piperacillin and IV vancomycin. Status: Acute (2) Pancreatic cancer: Problem comment: - follows with [facility], diagnosed 02/2021, Whipple procedure, recurrence 2023. Last chemo mid to late June 2023. - 07/10/2023: Patient continues to request full resuscitation in the event of cardiopulmonary demise Status: Acute (3) Clostridium perfringens infection: Problem comment: - 05/02/2023 blood cultures grew Clostridium perfringens. Subsequent cultures negative. Treated with IV vancomycin and piperacillin/tazobactam. Later trated with IV daptomycin and oral metronidazole. Status: Acute (4) Orthostatic hypotension: Problem comment: Chronic, lifelong. - takes Midodrine at home prn (up to 5x/day) Status: Acute (5) H/O Whipple procedure: Problem comment: - on chronic pancreatic enzyme replacement - percutaneous transhepatic cholangiogram drainage in place Status: Acute Plan 1. Reviewed with patient and . 2. Answered their questions. 3. Admit to the hospital and treat sepsis and await cultures. 4. Continue with supportive efforts. Total Time Spent Total Time Spent: 70 minutes
[2023-07-10] MEDS: 0.9 % SODIUM CHLORIDE 1000 ml 1,000 ML 125 ML IV (21:12)
[2023-07-10] MEDS: LIDOCAINE 5% PATCH 1 PATCH TRANSDERMA (22:43)
[2023-07-10] MEDS: GABAPENTIN 100 MG CAPSULE 300 MG PO (22:45)
[2023-07-10] MEDS: MAGNESIUM OXIDE 400 MG TABLET PO (22:46)
[2023-07-10] MEDS: SODIUM CHLORIDE 0.9 % (FLUSH) 10 ML SYRINGE 5 ML IVF (22:48)
[2023-07-10 23:07] LABS: Lactate* 1.8 mmol/L (0.5-1.9)
[2023-07-11] VITALS (9 sets, daily range): BP systolic 92–116; BP diastolic 58–73; PULSE 69–83; RESP 16–18; TEMP 36.4–36.8; O2SAT 97–100; BMI 28.2
[2023-07-11] MEDS: PIPERACILLIN/TAZOBACTAM 3.375 GM in 0.9 % SODIUM CHLORIDE Mini-bag 100 ML IVPB ×4 (01:20→18:12)
--- NOTE | 2023-07-11 01:40 | PC.NURSE ---
0030 2 RNs attempted to manipulate left pancreatic drain secondary to multiple various size blood clots in drainage bag and tubing. 25cc originally into graduate cylinder with much attempts. called as she has supplies that she has been instructed how to change bag. RNs at to watch. injected 10 cc NS into port which at first was difficult to infuse but then went in easily. This RN was then able to aspirate some return which included clots. New bag placed with noted return of maroon color. emptied graduate cylinder of 75cc. saying the first drain they had put in at [facility] and 2nd one at [facility]. they stated they probably would be going back to [facility].
[2023-07-11] MEDS: 0.9 % SODIUM CHLORIDE 1000 ml 1,000 ML 125 ML IV ×3 (05:59→22:06)
--- NOTE | 2023-07-11 06:56 | PC.NURSE ---
END OF SHIFT NOTE: PT PLEASANT AND COOPERATIVE WITH [facility]. PT REPORTS SLIGHT DISCOMFORT TO RIGHT FLANK NEAR PTH BILIARY DRAIN. DRAIN WITH OUTPUT OF BLOOD AND BLOOD CLOTS. BLOOD CLOTS CLOGGED TUBING AND DRAIN IN BAG. BROUGHT IN NEW PTH BILIARY DRAIN SET UP AND COMPLETED DRAIN CHANGE. PT SKIN JAUNDICE. LIDOCAINE PATCH TO LEFT LOWER BACK. SOFT BP'S; ASYMPTOMATIC. VSS ON RA.
[2023-07-11 07:16] LABS: Albumin* 2.6 g/dL (3.3-5.0); Chloride* 110 mmol/L (96-114)
[2023-07-11 07:17] LABS: Basophils Absolute Auto 0.05 K/uL (0.00-0.30); Basophils Percent Auto 0.5 % (0.0-3.0); Eosinophils Absolute Auto 0.11 K/uL (0.00-0.50); Eosinophils Percent Auto 1.1 % (0.0-7.0); Hematocrit 27.5 % (37.0-53.0); Immature Granulocytes Abs Auto 0.01 K/uL (0.00-0.30); Immature Granulocytes Pct Auto 0.1 %; Lymphocytes Percent Auto 9.5 % (20-44); Mean Corpuscular HGB Conc 33 gm/dL (32-36); Mean Corpuscular Hemoglobin 36 pg (26-34); Mean Corpuscular Volume 110 fL (80-100); Monocytes Percent Auto 7.5 % (0.0-11.0); Neutrophils Percent Auto 81.3 % (42.0-72.0); Platelet Count* 82 K/uL (140-440); Potassium* 3.5 mmol/L (3.6-5.1); RDW Coefficient of Variation % 19.2 % (11.5-15.5); Sodium* 137 mmol/L (135-149); White Blood Count* 9.67 K/uL (4.50-11.00)
[2023-07-11 07:19] LABS: Anion Gap 4 mEq/L (7-15); Aspartate Amino Transferase* 64 U/L (12-35); Bilirubin Direct* 4.1 mg/dL (0.0-0.5); Bilirubin Total* 6.8 mg/dL (0.1-1.5); Blood Urea Nitrogen* 21 mg/dL (7-30); Carbon Dioxide* 23 mmol/L (20-32); Creatinine* 0.9 mg/dL (0.5-1.5); Est. Creatinine Clearance* 63.65; Estimated Glomerular Filt Rate 90 ml/min
[2023-07-11 07:20] LABS: Alanine Aminotransferase* 35 U/L (4-50); Alkaline Phosphatase* 218 U/L (40-150); Glucose* 94 mg/dL (60-115)
[2023-07-11 07:27] LABS: Slide Review Reflex No
[2023-07-11] MEDS: PANCREALIPASE (12,38,60) CAP 3 CAP PO ×3 (08:11→17:08)
[2023-07-11] MEDS: MIDODRINE HCL 5 MG TABLET 10 MG PO ×5 (09:10→20:38)
[2023-07-11] MEDS: OMEPRAZOLE 20 MG CAPSULE DR 40 MG PO (09:11)
[2023-07-11] MEDS: allopurinoL 100 MG TABLET 200 MG PO (09:11)
[2023-07-11] MEDS: SODIUM CHLORIDE 0.9 % (FLUSH) 10 ML SYRINGE 5 ML IVF ×2 (09:14→20:39)
[2023-07-11] MEDS: SENNOSIDES 1 TAB TABLET PO (09:14)
[2023-07-11] MEDS: MAGNESIUM OXIDE 400 MG TABLET PO ×2 (09:14→20:39)
[2023-07-11 09:16] LABS: Lactate* 2.3 mmol/L (0.5-1.9)
[2023-07-11 09:24] LABS: Lipase* 32 U/L (23-300)
[2023-07-11 09:25] LABS: Magnesium* 1.8 mg/dL (1.5-2.6); Phosphorus* 3.5 mg/dL (2.5-4.5)
[2023-07-11 09:28] LABS: C Reactive Protein* 4.7 mg/dL (0.5-1.0)
[2023-07-11 09:41] LABS: Troponin I* < 0.01 ng/mL (0.01-0.04)
--- NOTE | 2023-07-11 10:26 | P.IMPN_ITS ---
Progress Note: A&P Assessment and plan (1) Sepsis: Problem details: - blood cultures obtained, NGTD on 07/10 - being treated with normal saline 30 mL/kilogram and monitoring lactate - started on IV piperacillin and IV vancomycin (07/09), continuing while we await culture results Status: Acute (2) Pancreatic cancer: Problem details: - follows with Dr. Ravi at [facility] ([phone]), diagnosed 02/2021 - s/p Whipple procedure, recurrence 2023. Last chemo mid to late June 2023 - 07/10/2023: Patient continues to request full resuscitation in the event of cardiopulmonary demise Status: Acute (3) Clostridium perfringens infection: Problem details: - 05/02/2023 blood cultures grew Clostridium perfringens, treated with IV vanco and Zosyn; later treated with IV daptomycin and oral metronidazole Status: Acute (4) Orthostatic hypotension: Problem details: - Chronic, lifelong - takes Midodrine at home prn (up to 5x/day) Status: Acute (5) H/O Whipple procedure: Problem details: - on chronic pancreatic enzyme replacement - percutaneous transhepatic cholangiogram drainage in place Status: Acute Plan - per above - will need to remain inpatient until at least 48 hours of negative cultures - updated at bedside, questions answered - SCDs and Teds for ppx (pharmacological ppx deferred at this time given thrombocytopenia and elevated INR) - called and left message for Dr. Ravi to discuss hospitalization, f/u plans, etc Subjective Date Seen: 07/11/23 Interval history: Marcial was admitted to the hospital last night for weakness and concern for sepsis given elevated lactate, tachycardia, WBC of 17. Tmax of 100.2 yesterday afternoon. History of sepsis and metastatic pancreatic cancer. This morning, he still feels weak but a little better. NGTD on blood and urine cultures. Exam Narrative: Exam Narrative: GEN: Sitting up in bed, appears chronically ill HEENT: EOMIs bilaterally, + scleral icterus CV: RRR, No concerning murmurs R: LCTA bilaterally without concerning wheezing, air movement adequate Ab: Soft, no ttp, mild distention + fluid wave Ext: wwp, no concerning edema Skin: Jaundice Neuro: No focal deficits Psych: Appropriate Const: Vital Signs, click to edit/add: Vital Signs - 24 hr 07/10/23 16:33 07/10/23 16:33 07/10/23 16:40 Temperature 100.2 F H Pulse Rate 112 H Pulse Rate [Pulse Oximeter] Pulse Rate [Right Pulse Oximeter] 112 H Respiratory Rate 22 Blood Pressure Blood Pressure [Ri ght Arm] Blood Pressure [Ri ght Upper Arm] 134/66 Pulse Oximetry 96 96 Oxygen Delivery Mi thod Room Air 07/10/23 16:41 07/10/23 16:45 07/10/23 17:00 Temperature Pulse Rate 112 H 112 H 111 H Pulse Rate [Pulse Oximeter] Pulse Rate [Right Pulse Oximeter] Respiratory Rate Blood Pressure 93/58 L Blood Pressure [Ri ght Arm] Blood Pressure [Ri ght Upper Arm] Pulse Oximetry 96 96 97 Oxygen Delivery Mi thod 07/10/23 17:27 07/10/23 17:28 07/10/23 17:30 Temperature Pulse Rate 106 H 104 H 107 H Pulse Rate [Pulse Oximeter] Pulse Rate [Right Pulse Oximeter] Respiratory Rate Blood Pressure 107/69 Blood Pressure [Ri ght Arm] Blood Pressure [Ri ght Upper Arm] Pulse Oximetry 98 97 97 Oxygen Delivery Mi thod 07/10/23 17:54 07/10/23 17:55 07/10/23 17:59 Temperature 99.6 F Pulse Rate 103 H 103 H Pulse Rate [Pulse Oximeter] Pulse Rate [Right Pulse Oximeter] Respiratory Rate Blood Pressure 111/66 Blood Pressure [Ri ght Arm] Blood Pressure [Ri ght Upper Arm] Pulse Oximetry 97 97 Oxygen Delivery Mi thod 07/10/23 18:00 07/10/23 18:01 07/10/23 18:15 Temperature Pulse Rate 101 H 102 H 98 Pulse Rate [Pulse Oximeter] Pulse Rate [Right Pulse Oximeter] Respiratory Rate Blood Pressure 106/60 Blood Pressure [Ri ght Arm] Blood Pressure [Ri ght Upper Arm] Pulse Oximetry 96 96 96 Oxygen Delivery Me thod 07/10/23 18:21 07/10/23 18:22 07/10/23 18:30 Temperature Pulse Rate 100 100 100 Pulse Rate [Pulse Oximeter] Pulse Rate [Right Pulse Oximeter] Respiratory Rate Blood Pressure 99/69 Blood Pressure [Ri ght Arm] Blood Pressure [Ri ght Upper Arm] Pulse Oximetry 98 99 96 Oxygen Delivery Mi thod 07/10/23 18:41 07/10/23 18:45 07/10/23 19:00 Temperature Pulse Rate 99 99 96 Pulse Rate [Pulse Oximeter] Pulse Rate [Right Pulse Oximeter] Respiratory Rate Blood Pressure 102/63 Blood Pressure [Ri ght Arm] Blood Pressure [Ri ght Upper Arm] Pulse Oximetry 93 96 95 Oxygen Delivery Me thod 07/10/23 19:01 07/10/23 19:01 07/10/23 19:02 Temperature Pulse Rate 96 96 97 Pulse Rate [Pulse Oximeter] Pulse Rate [Right Pulse Oximeter] Respiratory Rate Blood Pressure 106/68 106/68 Blood Pressure [Ri ght Arm] Blood Pressure [Ri ght Upper Arm] Pulse Oximetry 96 96 94 Oxygen Delivery Mi thod 07/10/23 19:09 07/10/23 19:15 07/10/23 19:21 Temperature Pulse Rate 97 95 Pulse Rate [Pulse Oximeter] Pulse Rate [Right Pulse Oximeter] Respiratory Rate 20 Blood Pressure 113/74 Blood Pressure [Ri ght Arm] Blood Pressure [Ri ght Upper Arm] Pulse Oximetry 94 96 Oxygen Delivery Mi thod 07/10/23 19:30 07/10/23 19:41 07/10/23 19:45 Temperature Pulse Rate 93 92 92 Pulse Rate [Pulse Oximeter] Pulse Rate [Right Pulse Oximeter] Respiratory Rate Blood Pressure 109/74 Blood Pressure [Ri ght Arm] Blood Pressure [Ri ght Upper Arm] Pulse Oximetry 97 97 95 Oxygen Delivery Mi thod 07/10/23 20:20 07/10/23 20:20 07/10/23 20:20 Temperature 98.8 F Pulse Rate 87 Pulse Rate [Pulse Oximeter] 90 Pulse Rate [Right Pulse Oximeter] Respiratory Rate 16 16 Blood Pressure Blood Pressure [Ri ght Arm] 102/81 Blood Pressure [Ri ght Upper Arm] Pulse Oximetry 98 98 Oxygen Delivery Me od Room Air Room Air 07/10/23 20:20 07/10/23 20:20 07/10/23 22:40 Temperature 98.2 F Pulse Rate Pulse Rate [Pulse Oximeter] 90 80 Pulse Rate [Right Pulse Oximeter] Respiratory Rate 16 16 16 Blood Pressure Blood Pressure [Ri ght Arm] 98/63 Blood Pressure [Ri ght Upper Arm] Pulse Oximetry 98 97 [facility] 07/11/23 02:45 07/11/23 07:00 07/11/23 07:00 Temperature 98.3 F Pulse Rate 79 Pulse Rate [Pulse Oximeter] 75 83 Pulse Rate [Right Pulse Oximeter] Respiratory Rate 16 18 Blood Pressure Blood Pressure [Ri ght Arm] 92/58 L Blood Pressure [Ri ght Upper Arm] Pulse Oximetry 98 Oxygen Delivery Me thod Room Air 07/11/23 07:00 07/11/23 07:00 Temperature 98.1 F Pulse Rate Pulse Rate [Pulse Oximeter] 83 Pulse Rate [Right Pulse Oximeter] Respiratory Rate 18 18 Blood Pressure Blood Pressure [Ri ght Arm] 104/61 Blood Pressure [Ri ght Upper Arm] Pulse Oximetry 98 98 Oxygen Delivery Me thod Room Air Room Air Labs Labs: Laboratory Results - last 24 hr 07/10/23 07/10/23 07/10/23 16:34 16:39 17:30 WBC 17.82 H RBC 2.83 L Hgb 10.3 L Hct 30.5 L MCV 108 H MCH 36 H MCHC 34 RDW Coeff of Fidelina 19.0 H Plt Count 125 L Neut % (Auto) 89.6 H Lymph % (Auto) 4.0 L [place] % (Auto) 5.9 Eos % (Auto) 0.1 Baso % (Auto) 0.2 Neut # (Auto) 16.00 H Lymph # (Auto) 0.70 L [place] # (Auto) 1.10 H Eos # (Auto) 0.00 Baso # (Auto) 0.00 Abs Immat Gran (auto) 0.00 Imm/Tot Granulo (auto) 0.2 INR 1.45 H D-Dimer Quant (PE/DVT) 9.13 H VBG pH 7.514 H VBG pCO2 29 L VBG pO2 46.5 VBG HCO3 23 Sodium 135 Potassium 3.5 L Chloride 106 Carbon Dioxide 21 Anion Gap 8 BUN 21 Creatinine 0.9 Estimated Creat Clear 63.31 Estimated GFR 90 Glucose 114 Lactate 2.7 H Calcium 8.3 L Phosphorus Magnesium 1.8 Total Bilirubin 4.8 H Direct Bilirubin 2.5 H AST 69 H ALT 38 Alkaline Phosphatase 262 H Ammonia 58.0 H Troponin I < 0.01 L C-Reactive Protein 3.9 H Total Protein 7.5 Albumin 3.0 L Lipase 60 Procalcitonin 0.78 H Urine Color Eduarda A Urine Appearance Clear Urine pH 5.5 Ur Specific [place] 1.020 Urine Protein Trace A Urine Glucose (UA) Negative Urine Ketones Negative Urine Blood Negative Urine Nitrite Negative Urine Bilirubin 2+ A Urine Urobilinogen 0.2 Ur Leukocyte Esterase Negative Urine RBC 0-2 Urine WBC 5-10 A Ur Squamous Epith Cells None Urine Bacteria None Salicylates < 1.0 L Acetaminophen < 10.0 L Ethyl Alcohol < 0.01 L SARS-CoV-2 (PCR) Influenza Type A (PCR) Influenza Type B (PCR) RSV (PCR) POC Troponin I 0.01 07/10/23 07/10/23 07/11/23 18:00 23:03 06:37 WBC 9.67 RBC 2.50 L Hgb 9.0 L Hct 27.5 L MCV 110 H MCH 36 H MCHC 33 RDW Coeff of Fidelina 19.2 H Plt Count 82 L Neut % (Auto) 81.3 H Lymph % (Auto) 9.5 L [place] % (Auto) 7.5 Eos % (Auto) 1.1 Baso % (Auto) 0.5 Neut # (Auto) 7.90 H Lymph # (Auto) 0.90 [place] # (Auto) 0.70 Eos # (Auto) 0.11 Baso # (Auto) 0.05 Abs Immat Gran (auto) 0.01 Imm/Tot Granulo (auto) 0.1 INR D-Dimer Quant (PE/DVT) VBG pH VBG pCO2 VBG pO2 VBG HCO3 Sodium 137 Potassium 3.5 L Chloride 110 Carbon Dioxide 23 Anion Gap 4 L BUN 21 Creatinine 0.9 Estimated Creat Clear 63.65 Estimated GFR 90 Glucose 94 Lactate 1.8 Calcium 8.0 L Phosphorus 3.5 Magnesium 1.8 Total Bilirubin 6.8 H Direct Bilirubin 4.1 H AST 64 H ALT 35 Alkaline Phosphatase 218 H Ammonia Troponin I < 0.01 L C-Reactive Protein 4.7 H Total Protein 7.0 Albumin 2.6 L Lipase 32 Procalcitonin Urine Color Urine Appearance Urine pH Ur Specific [place] Urine Protein Urine Glucose (UA) Urine Ketones Urine Blood Urine Nitrite Urine Bilirubin Urine Urobilinogen Ur Leukocyte Esterase Urine RBC Urine WBC Ur Squamous Epith Cells Urine Bacteria Salicylates Acetaminophen Ethyl Alcohol SARS-CoV-2 (PCR) Negative SARS-CoV-2 Influenza Type A (PCR) Negative PCR FLU A Influenza Type B (PCR) Negative PCR FLU B RSV (PCR) Negative PCR RSV POC Troponin I 07/11/23 09:12 WBC RBC Hgb Hct MCV MCH MCHC RDW Coeff of Fidelina Plt Count Neut % (Auto) Lymph % (Auto) [place] % (Auto) Eos % (Auto) Baso % (Auto) Neut # (Auto) Lymph # (Auto) [place] # (Auto) Eos # (Auto) Baso # (Auto) Abs Immat Gran (auto) Imm/Tot Granulo (auto) INR D-Dimer Quant (PE/DVT) VBG pH VBG pCO2 VBG pO2 VBG HCO3 Sodium Potassium Chloride Carbon Dioxide Anion Gap BUN Creatinine Estimated Creat Clear Estimated GFR Glucose Lactate 2.3 H Calcium Phosphorus Magnesium Total Bilirubin Direct Bilirubin AST ALT Alkaline Phosphatase Ammonia Troponin I C-Reactive Protein Total Protein Albumin Lipase Procalcitonin Urine Color Urine Appearance Urine pH Ur Specific [place] Urine Protein Urine Glucose (UA) Urine Ketones Urine Blood Urine Nitrite Urine Bilirubin Urine Urobilinogen Ur Leukocyte Esterase Urine RBC Urine WBC Ur Squamous Epith Cells Urine Bacteria Salicylates Acetaminophen Ethyl Alcohol SARS-CoV-2 (PCR) Influenza Type A (PCR) Influenza Type B (PCR) RSV (PCR) POC Troponin I
[2023-07-11] MEDS: 0.9 % SODIUM CHLORIDE 500 ML 500 ML IV (10:51)
[2023-07-11] MEDS: POTASSIUM BICARB 25 MEQ EFFERVESCENT TAB PO (12:37)
[2023-07-11] MEDS: ACETAMINOPHEN 325 MG TABLET 650 MG PO (12:48)
[2023-07-11] MEDS: MIRTAZAPINE 15 MG TABLET 7.5 MG PO (18:08)
--- NOTE | 2023-07-11 18:31 | PC.NURSE ---
Patient alert and oriented x4. Vitally stable. Patient was pleasant. Rates pain at 2/10. Tolerated a regular diet. at bedside most of shift. Percutaneous trans biliary tube patent and draining. Ambulates to bathroom and chair with walker and gait belt with assist of one. PRN Tylenol given for back pain and was effective.
[2023-07-11] MEDS: LIDOCAINE 5% PATCH 1 PATCH TRANSDERMA (20:37)
[2023-07-11] MEDS: GABAPENTIN 100 MG CAPSULE 300 MG PO (20:38)
[2023-07-11] MEDS: MELATONIN 3 MG TABLET PO (20:39)
[2023-07-12] MEDS: PIPERACILLIN/TAZOBACTAM 3.375 GM in 0.9 % SODIUM CHLORIDE Mini-bag 100 ML IVPB ×2 (00:22→06:18)
[2023-07-12 02:06] VITALS: BP 120/76; PULSE 67; RESP 16; TEMP 36.1; O2SAT 97
--- NOTE | 2023-07-12 03:59 | PC.NURSE ---
Pt rested well this night. Pleasant and cooperative. Biliary drain patent and draining brown fluid. VS unremarkable.
[2023-07-12 06:53] LABS: Lactate* 1.5 mmol/L (0.5-1.9)
[2023-07-12 07:00] VITALS: BP 95/52; PULSE 71; PULSE 72; RESP 18; TEMP 36.4; O2SAT 96
[2023-07-12 07:00] LABS: Basophils Absolute Auto 0.04 K/uL (0.00-0.30); Basophils Percent Auto 0.4 % (0.0-3.0); Eosinophils Absolute Auto 0.25 K/uL (0.00-0.50); Eosinophils Percent Auto 2.7 % (0.0-7.0); Hematocrit 25.3 % (37.0-53.0); Hemoglobin* 8.4 gm/dL (13.5-17.5); Immature Granulocytes Abs Auto 0.01 K/uL (0.00-0.30); Immature Granulocytes Pct Auto 0.1 %; Lymphocytes Percent Auto 11.1 % (20-44); Mean Corpuscular HGB Conc 33 gm/dL (32-36); Mean Corpuscular Hemoglobin 36 pg (26-34); Mean Corpuscular Volume 109 fL (80-100); Monocytes Percent Auto 9.3 % (0.0-11.0); Neutrophils Percent Auto 76.4 % (42.0-72.0); Platelet Count* 90 K/uL (140-440); RDW Coefficient of Variation % 18.7 % (11.5-15.5); Red Blood Count 2.32 m/uL (4.30-5.90); White Blood Count* 9.34 K/uL (4.50-11.00)
[2023-07-12 07:37] LABS: Slide Review Reflex Yes
[2023-07-12 07:38] LABS: Slide Review Acceptable Review (Acceptable)
[2023-07-12 07:46] LABS: Albumin* 2.3 g/dL (3.3-5.0)
[2023-07-12 07:47] LABS: Chloride* 112 mmol/L (96-114); Potassium* 3.2 mmol/L (3.6-5.1); Sodium* 136 mmol/L (135-149)
[2023-07-12 07:49] LABS: Anion Gap 3 mEq/L (7-15); Bilirubin Direct* 2.5 mg/dL (0.0-0.5); Bilirubin Total* 4.6 mg/dL (0.1-1.5); Carbon Dioxide* 21 mmol/L (20-32); Creatinine* 0.8 mg/dL (0.5-1.5); Est. Creatinine Clearance* 63.65; Estimated Glomerular Filt Rate 93 ml/min; Total Protein* 6.3 g/dL (6.0-8.3)
[2023-07-12 07:50] LABS: Alanine Aminotransferase* 31 U/L (4-50); Alkaline Phosphatase* 183 U/L (40-150); Aspartate Amino Transferase* 52 U/L (12-35); Blood Urea Nitrogen* 18 mg/dL (7-30); Calcium* 7.6 mg/dL (8.4-10.6); Glucose* 91 mg/dL (60-115)
[2023-07-12 07:52] LABS: INR 1.63 (0.91-1.10); Prothrombin Time 20.5 Seconds
[2023-07-12] MEDS: 0.9 % SODIUM CHLORIDE 1000 ml 1,000 ML 125 ML IV (08:10)
[2023-07-12] MEDS: PANCREALIPASE (12,38,60) CAP 3 CAP PO (08:10)
[2023-07-12] MEDS: MIDODRINE HCL 5 MG TABLET 10 MG PO (09:22)
[2023-07-12] MEDS: OMEPRAZOLE 20 MG CAPSULE DR 40 MG PO (09:22)
[2023-07-12] MEDS: allopurinoL 100 MG TABLET 200 MG PO (09:23)
[2023-07-12] MEDS: SENNOSIDES 1 TAB TABLET PO (09:23)
[2023-07-12] MEDS: MAGNESIUM OXIDE 400 MG TABLET PO (09:23)
--- NOTE | 2023-07-12 10:34 | PM.DS1 ---
DS: Providers Provider Date Seen: 07/12/23 Date of admission: 07/10/23 20:40 Primary care physician: Chinedu Hudson MD Admitting Clinician: Trent Sneed MD Consults: 07/11/23 02:06 Consult to Physical Therapy [CONS] Routine Comment: Reason(s) for PT Consult:: Weakness Any Restrictions?:: See Comment Comment: PERCUTANEOUS TRANSHEPATIC BILIARY DRAINAGE PLACED ON PT'S RIGHT SIDE. Attending Physician on discharge: Roshni Bolton MD Date of Discharge: 07/12/23 DS: Diagnosis Discharge Diagnosis (1) Sepsis: Status: Acute Problem details: - blood cultures obtained, NGTD at 48 hours and patient requested discharge home - will discharge home (07/11) on Amoxicillin and Metronidazole given results from + blood culture in April 2023 (2) Pancreatic cancer: Status: Acute Problem details: - follows with Dr. Ravi at [facility] ([phone]), diagnosed 02/2021 - s/p Whipple procedure, recurrence 2023. Last chemo mid to late June 2023 - 07/10/2023: Patient continues to request full resuscitation in the event of cardiopulmonary demise - reviewed case with Dr. Ravi by phone on 07/11, Marcial has f/u with her scheduled for next week (3) Clostridium perfringens infection: Status: Acute Problem details: - 05/02/2023 blood cultures grew Clostridium perfringens, treated with IV vanco and Zosyn; later treated with IV daptomycin and oral metronidazole - will treat with Amoxicillin and Metronidazole upon discharge 07/11 (4) Orthostatic hypotension: Status: Acute Problem details: - chronic, lifelong - takes Midodrine at home prn (up to 5x/day) (5) H/O Whipple procedure: Status: Acute Problem details: - on chronic pancreatic enzyme replacement - percutaneous transhepatic cholangiogram drainage in place DS: Summary Hospital Course Hospital Course: Marcial is a patient with metastatic pancreatic cancer who was admitted to the hospital on 07/09 for presumed sepsis in the setting of weakness. Concern for sepsis was clinical, given history of sepsis and known percutaneous transhepatic cholangiogram drain. During stay, blood cultures remained negative. Tmax was 100.2 and patient did not have tachycardia. He was treated with IV piperacillin-tazobactam and vancomycin. Improved, requesting discharge home on hospital day 2. History of bacteremia with Clostridium in April of this year; based on those sensitivities, we will send him home on oral amoxicillin and oral metronidazole. Patient will see his oncologist (Dr. Ravi) as scheduled next week to discuss findings and goals of care. PET scan scheduled prior to his appointment with Dr. Ravi. We discussed goals of care and alternatives to continued chemotherapy, patient and would like to proceed with current treatment plan, will discuss further with Oncology team. Time Spent with Patient Time attestation: Total time spent providing and/or coordinating discharge services: Time spent: Greater than 30 minutes Specific discharge activities: Coordination with specialist, family updates, Education, med rec Exam Narrative: Exam Narrative: GEN: Alert and oriented, laying comfortably in bedside chair HEENT: EOMIs bilaterally, + scleral icterus CV: RRR R: LCTA bilaterally without concerning wheezing Ext: wwp, no concerning edema Skin: + jaundice Neuro: Nonfocal Psych: Appropriate Const: Vital Signs, click to edit/add: Vital Signs - 24 hr 07/11/23 11:00 07/11/23 15:00 07/11/23 15:00 Temperature 98.1 F Pulse Rate Pulse Rate [Pulse Oximeter] 80 80 Respiratory Rate 16 16 16 Blood Pressure [Ri ght Arm] 114/63 Pulse Oximetry 98 98 Oxygen Delivery Me thod Room Air Room Air 07/11/23 15:00 07/11/23 19:13 07/11/23 20:50 Temperature 97.8 F 97.9 F Pulse Rate 69 Pulse Rate [Pulse Oximeter] 70 71 Respiratory Rate 16 16 Blood Pressure [Ri ght Arm] 99/60 116/73 Pulse Oximetry 98 100 Oxygen Delivery Ma thod Room Air Room Air 07/11/23 22:04 07/11/23 22:20 07/11/23 22:21 Temperature 97.5 F L Pulse Rate Pulse Rate [Pulse Oximeter] 71 71 Respiratory Rate 16 16 16 Blood Pressure [Ri ght Arm] 114/60 Pulse Oximetry 97 97 Oxygen Delivery Me thod Room Air Room Air 07/12/23 02:06 07/12/23 07:00 07/12/23 07:00 Temperature 97 F L Pulse Rate 71 Pulse Rate [Pulse Oximeter] 67 72 Respiratory Rate 16 18 Blood Pressure [Ri ght Arm] 120/76 Pulse Oximetry 97 Oxygen Delivery Ma thod Room Air 07/12/23 07:00 07/12/23 07:00 Temperature 97.5 F L Pulse Rate Pulse Rate [Pulse Oximeter] 72 Respiratory Rate 18 18 Blood Pressure [Ri ght Arm] 95/52 L Pulse Oximetry 96 96 Oxygen Delivery Me thod Room Air Room Air DS: Data Data Completed and Pending Completed studies during hospitalization: Procedures Removal of Infusion Device from Upper Vein, Open Approach (05/02/23) Removal of Totally Implantable Vascular Access Device from Trunk Subcutaneous Tissue and Fascia, Open Approach (05/02/23) Labs on day of discharge: Labs from last 24 hours 07/12/23 06:48 WBC 9.34 RBC 2.32 L Hgb 8.4 L Hct 25.3 L MCV 109 H MCH 36 H MCHC 33 RDW Coeff of Fidelina 18.7 H Plt Count 90 L Neut % (Auto) 76.4 H Lymph % (Auto) 11.1 L [place] % (Auto) 9.3 Eos % (Auto) 2.7 Baso % (Auto) 0.4 Neut # (Auto) 7.10 H Lymph # (Auto) 1.00 [place] # (Auto) 0.90 Eos # (Auto) 0.25 Baso # (Auto) 0.04 Abs Immat Gran (auto) 0.01 Imm/Tot Granulo (auto) 0.1 Diff Slide Review Acceptable Review INR 1.63 H Sodium 136 Potassium 3.2 L Chloride 112 Carbon Dioxide 21 Anion Gap 3 L BUN 18 Creatinine 0.8 Estimated Creat Clear 63.65 Estimated GFR 93 Glucose 91 Lactate 1.5 Calcium 7.6 L Total Bilirubin 4.6 H Direct Bilirubin 2.5 H AST 52 H ALT 31 Alkaline Phosphatase 183 H Total Protein 6.3 Albumin 2.3 L Preliminary micro results at discharge 07/10/23 19:49 Blood Culture - Preliminary Blood NO GROWTH AFTER 24 HOURS 07/10/23 16:39 Blood Culture - Preliminary Blood NO GROWTH AFTER 24 HOURS 07/10/23 18:00 Urine Culture - Preliminary Urine,Clean Catch No growth. Discharge Plan Discharge Disposition: Home, Self-Care Date of Admission: 07/10/23 20:40 Attending Provider on Discharge: Roshni Bolton Primary Care Provider: Chinedu Hudson Condition: Improved Anticipated Discharge Date/Time: 07/12/23 10:22 Discharge Medications: New amoxicillin 875 mg tablet 875 mg PO BID 10 Days Qty: 20 0RF metronidazole 500 mg tablet 500 mg PO BID 10 Days Qty: 20 0RF Continued allopurinol 100 mg tablet 200 mg PO DAILY mirtazapine 7.5 mg tablet 7.5 mg PO QPM magnesium oxide 400 mg (241.3 mg magnesium) tablet 400 mg PO BID pantoprazole 40 mg tablet,delayed release (DR/EC) 40 mg PO DAILY gabapentin 100 mg capsule 300 mg PO HS midodrine 10 mg tablet 10 mg PO 5XD aspirin 81 mg capsule 81 mg PO DAILY colchicine 0.6 mg capsule 0.6 mg PO DAILY PRN Creon 36,000-114,000- 180,000 unit capsule,delayed release(DR/EC) 3 cap PO TIDWM Rx Instructions: Take 3 capsules with meals and 2 capsules with snacks.; administer with meals and/or snacks lidocaine 5 % adhesive patch,medicated 1 patch topical Q24H Rx Instructions: leave on most painful area for up to 12 hrs melatonin 3 mg capsule 3 mg PO HS polyethylene glycol 3350 17 gram/dose powder 17 g PO DAILY PRN metoclopramide HCl [Reglan] 10 mg tablet 10 mg PO Q6H PRN trazodone 50 mg tablet 50 mg PO HS PRN sildenafil 100 mg tablet 100 mg PO DAILY PRN (Reason: intercourse) sennosides 8.6 mg tablet 8.6 mg PO DAILY Discharge Orders: Discharge Order (Routine); Ordered 07/12/23 Ordered By: Roshni Bolton Additional Instructions: 10 days of antibiotics sent to [facility] (2 meds, each are to be taken twice/day with food) Increase protein intake as tolerated. Keep appointments for PET scan and with Dr. Ravi. Activity Level: Activity as Tolerated and No strenuous activity Discharge Diet: High Protein/High Calorie Follow Up Appointments: Chinedu Hudson MD [Primary Care Provider] - (patient to call and make appt after f/u with Dr. Ravi) Forms: [employer] Info Instructions
--- NOTE | 2023-07-12 12:07 | PC.NURSE ---
Discharge:Patient alert and oriented x4. Vitally stable. Patient was pleasant. Rates pain at 2/10. Tolerated a regular diet. at bedside most of shift. Percutaneous trans biliary tube patent and draining. Patient on room air. Ambulates to bathroom and chair with walker and gait belt with assist of one. Discharged at 1205 to home accompanied by spouse. Two IVs removed with tip intact. Discharge instructions given and patient verbalized understanding. Patient Ok's spouse to sign discharge instructions and belonging sheet.
== END 2023-07-12 12:05 | disposition home or self-care (01) | DRG 872 ==
LOC: ED 19:26 → MEDSURG 20:04
PROVIDERS: Family Medicine; Admitting Provider Internal Medicine; Emergency Provider Family Medicine; PCP Family Medicine; Visit Provider Internal Medicine
DX: A41.9 Sepsis, unspecified organism (principal); C25.9 Malignant neoplasm of pancreas, unspecified; R53.1 Weakness; D69.6 Thrombocytopenia, unspecified; I95.1 Orthostatic hypotension; B96.7 Clostridium perfringens [C. perfringens] as the cause of diseases classified elsewhere; Z96.89 Presence of other specified functional implants
CPT/HCPCS: 36415; 70450; 71250; 74177; 80048; 80076; 80143; 80179; 81001; 82077; 82140; 82803; 83605; 83690; 83735; 84100; 84145; 84484; 85025; 85379; 85610; 86140; 87040; 87086; 87631; 93005; 94761; 97161; 99285; A9270; J2543; J3370; J7030; J7050; Q9967